=== PATIENT | male | born 1950 | race Caucasian/White ===

== ENCOUNTER → 2016-09-08 | Outpatient (CLI) | payer BC ==
[~2016-09-08] MED LIST: ALLOPURINOL100 M1 ORAL; FLOMAX0.4 MG ORAL; NORCO 5-325 TA1 EACH ORAL; NORVASC5 MG ORAL; PANCREASE1 EA ORAL; POTASSIUM CHLO20 ME1 ORAL; PROTONIX40 MG ORAL; RANITIDINE HCL150 MG ORAL; TRAMADOL HCL50 MG ORAL
[2016-09-08 09:41] LABS: BILIRUBIN,DIRECT 0.1 mg/dL (0.1-0.3); CALCIUM 9.3 mg/dL (8.6-10.2); CREATININE 1.4 mg/dL (0.7-1.2); POTASSIUM 4.7 mEQ/L (3.4-4.9); TOTAL PROTEIN 7.3 g/dL (6.6-8.7)
== END | disposition home or self-care (01) ==
LOC: LAB 08:50
DX: R94.5 Abnormal results of liver function studies (principal)
CPT/HCPCS: 36415; 80048; 80076

== ENCOUNTER → 2016-11-25 | Outpatient (CLI) | payer MEDICARE ==
[2016-11-25 10:33] LABS: BASOPHILS % (AUTO) 0.7 % (0.0-2.0); EOSINOPHILS % (AUTO) 0.9 % (0.0-3.0); LYMPHOCYTES % (AUTO) 9.1 % (20.0-45.0); MEAN CORPUSCULAR HGB CONC 32.8 G/DL (32.0-36.0); MEAN CORPUSCULAR VOLUME 94 FL (80-99); NEUTROPHILS % (AUTO) 79.4 % (45.0-75.0); PLATELET COUNT 222 K/UL (150-450); RED BLOOD COUNT 5.13 M/UL (4.70-6.10); RED CELL DISTRIBUTION WIDTH 12.2 % (11.6-14.8); WHITE BLOOD COUNT 10.6 K/UL (4.8-10.8)
[2016-11-25 10:51] LABS: CALCIUM 9.7 mg/dL (8.6-10.2); CREATININE 1.4 mg/dL (0.7-1.2); GLOMERULAR FILTRATION RATE 50.9 mL/min (>60); MAGNESIUM 2.2 mg/dL (1.7-2.5); PHOSPHORUS 3.2 mg/dL (2.5-4.8); POTASSIUM 4.5 mEQ/L (3.4-4.9); TOTAL PROTEIN 7.7 g/dL (6.6-8.7)
--- NOTE | 2016-11-25 12:37 | Diagnostic Imaging Report ---
Clinical Indication: Lower abdominal pain. History of right knee sarcoma Technique: Patient given oral contrast. IV administration nonionic contrast. Venous phase spiral acquisition obtained through the abdomen and pelvis. Multiplanar reconstructions were generated. Total dose length product 996 mGycm. CTDIvol(s) 18 mGy Comparison: 12/18/2015 Findings: Previously demonstrated pancreatic swelling and peripancreatic inflammatory changes have resolved. However, there are now multiple cysts surrounding the pancreas. The largest comes off of the pancreatic tail, measures 7.5 x 7 cm, and markedly indents the splenic hilum. It is surrounded by some tissue anteriorly that probably represents the splenic vein and branches that are splayed by it. A second is located within or adjacent to the pancreatic body, medial anterior splenic vein, measures 4.3 x 2 cm. A third occupies the density a process, measures 17 mm in diameter. A fourth is only barely contiguous with the pancreatic substance, appears to be within or adjacent to the wall of the proximal jejunum, measures 3 cm long axis dimension. There is some slight thickening of the adjacent jejunal wall. The contrast previously demonstrated within the pancreatic substance is no longer evident. There is suggestion of a tiny duodenal diverticulum. There is been interim considerable loss of pancreatic parenchyma. The gallbladder is nondistended. No gross gallstones are evident. There is minimal central intrahepatic biliary ductal dilatation, but this is somewhat improved from the previous exam. No extrahepatic biliary ductal dilatation is evident, although the extra hepatic bile ducts are not well visualized. No focal liver lesions are demonstrated. The spleen is borderline enlarged, measuring 13 cm long axis dimension There is a mass in the medial upper pole of the right kidney. This measures with 5.5 cm long axis dimension. This is iso-enhancing to the adjacent renal parenchyma. In retrospect, possibly present previously, currently larger. No hydronephrosis. Exophytic subcentimeter low-attenuation lesions in the left kidney most likely represent benign cortical cysts. No urinary calculi, hydronephrosis, or hydroureter. The bladder demonstrates mild wall thickening. The prostate is enlarged, indents the bladder floor. The adrenals are unremarkable. The appendix is not definitely identified, but there are no findings to suggest acute appendicitis.. There are a few colonic diverticula. No evidence of diverticulitis.. There is mild distention of the rectum with feces. No small bowel distention. No small bowel wall thickening. Distal esophagus, stomach, duodenum are unremarkable. No retroperitoneal or mesenteric mass or adenopathy. No pelvic mass or adenopathy. The included lung bases are clear. The bones demonstrate degenerative spondylosis changes. Lung bases are clear except for scarring or atelectasis in the inferior lingula Impression: Multiple pancreatic and peripancreatic cystic lesions, as described. Given evidence on prior CT of fulminant pancreatitis, these most likely represent pancreatic pseudocysts. Infection of any these cannot be excluded although there are no significant findings to suggest such. Note that one of the pseudocysts appears to be within the proximal jejunal serosa. There is wall thickening of the affected segment of jejunum and slightly distally. The jejunal thickening may be reactive related to the presence of the stenosis in the wall, or may be a separate process such as focal enteritis 5.5 cm right upper pole renal mass. This is worrisome for renal malignancy Mild central intrahepatic biliary ductal dilatation, less striking than on the prior study. Significance/etiology uncertain No definite extrahepatic biliary ductal dilatation. Correlation with liver function tests, consideration for ERCP if clinically indicated is recommended Exophytic subcentimeter low-attenuation l -- esions in the left kidney, too small to characterize, most likely benign simple cysts. No further followup necessary Borderline splenomegaly Prostatomegaly Apparent slight bladder wall thickening, most likely an artifact of under distention, process such as cystitis not completely excludable Possible mild rectal fecal impaction Findings discussed by phone with Dr. Solorzano at the time of interpretation The CT scanner at [facility] is accredited by the [employer] and the scans are performed using protocols designed to limit radiation exposure to as low as reasonably achievable to attain images of sufficient resolution adequate for diagnostic evaluation.
== END | disposition home or self-care (01) ==
LOC: RAD 09:47
DX: R10.30 Lower abdominal pain, unspecified (principal); N28.89 Other specified disorders of kidney and ureter; N40.0 Benign prostatic hyperplasia without lower urinary tract symptoms
CPT/HCPCS: 36415; 74177; 80053; 82150; 83690; 83735; 84100; 85025; Q9967

== ENCOUNTER → 2016-12-20 | Outpatient (CLI) | payer MEDICARE, OTHER ==
[2016-12-20 12:00] LABS: EOSINOPHILS % (AUTO) 3.3 % (0.0-3.0); LYMPHOCYTES % (AUTO) 9.3 % (20.0-45.0); MEAN CORPUSCULAR HEMOGLOBIN 30.8 PG (27.0-31.0); MEAN CORPUSCULAR HGB CONC 33.1 G/DL (32.0-36.0); MEAN CORPUSCULAR VOLUME 93 FL (80-99); MONOCYTES % (AUTO) 10.5 % (1.0-10.0); NEUTROPHILS % (AUTO) 75.8 % (45.0-75.0); PLATELET COUNT 211 K/UL (150-450); RED BLOOD COUNT 4.62 M/UL (4.70-6.10); WHITE BLOOD COUNT 10.9 K/UL (4.8-10.8)
[2016-12-20 12:17] LABS: CREATININE 2.3 mg/dL (0.7-1.2); GLOMERULAR FILTRATION RATE 28.7 mL/min (>60); PHOSPHORUS 3.2 mg/dL (2.5-4.8); POTASSIUM 3.9 mEQ/L (3.4-4.9); TOTAL PROTEIN 7.1 g/dL (6.6-8.7)
== END | disposition home or self-care (01) ==
LOC: LAB 11:13
DX: I10 Essential (primary) hypertension (principal); N28.89 Other specified disorders of kidney and ureter; S37.009A Unspecified injury of unspecified kidney, initial encounter; X58.XXXA Exposure to other specified factors, initial encounter; Y93.9 Activity, unspecified; Y92.9 Unspecified place or not applicable
CPT/HCPCS: 36415; 80053; 84100; 85025

== ENCOUNTER 2017-05-02 10:19 | Outpatient (CLI) | payer MEDICARE, OTHER ==
[2017-05-02 11:03] LABS: APPEARANCE,URINE CLEAR; KETONES,URINE 2+ (NEGATIVE); LEUKOCYTE ESTERASE ,URINE NEGATIVE (NEGATIVE); NITRITE,URINE NEGATIVE (NEGATIVE); PH,URINE 5 (4.5-8.0); PROTEIN,URINE 2+ (NEGATIVE); UROBILINOGEN,URINE NORMAL MG/DL (0.0-1.0)
[2017-05-02 11:05] LABS: BASOPHILS % (AUTO) 0.8 % (0.0-2.0); EOSINOPHILS % (AUTO) 1.5 % (0.0-3.0); LYMPHOCYTES % (AUTO) 7.4 % (20.0-45.0); MEAN CORPUSCULAR HEMOGLOBIN 31.3 PG (27.0-31.0); MEAN CORPUSCULAR HGB CONC 32.9 G/DL (32.0-36.0); MEAN CORPUSCULAR VOLUME 95 FL (80-99); MEAN PLATELET VOLUME 7.3 FL (6.5-10.1); MONOCYTES % (AUTO) 10.2 % (1.0-10.0); NEUTROPHILS % (AUTO) 80.2 % (45.0-75.0); PLATELET COUNT 167 K/UL (150-450); RED CELL DISTRIBUTION WIDTH 12.7 % (11.6-14.8); WHITE BLOOD COUNT 7.9 K/UL (4.8-10.8)
[2017-05-02 11:13] LABS: BACTERIA,URINE OCCASIONAL /HPF; SQUAMOUS EPITHELIAL CELL,UR OCCASIONAL /LPF (NONE/OCC); WBC,URINE 0-2 /HPF (0 - 0)
[2017-05-02 11:19] LABS: HEMOGLOBIN A1C 5.3 % (< 6.0)
[2017-05-02 11:24] LABS: PROTHROMBIN TIME 10.6 SEC (9.30-11.50)
[2017-05-02 11:27] LABS: ALBUMIN/GLOBULIN RATIO 1.1 (1.0-2.7); CALCIUM 9.1 mg/dL (8.6-10.2); CREATININE 2.4 mg/dL (0.7-1.2); GLOMERULAR FILTRATION RATE 27.3 mL/min (>60); POTASSIUM 4.2 mEQ/L (3.4-4.9); TOTAL PROTEIN 7.5 g/dL (6.6-8.7)
[2017-05-02 11:37] LABS: THYROID STIMULATING HORMONE 1.2 uIU/mL (0.300-4.500)
[2017-05-03 14:30] LABS: CREATININE RANDOM URINE 136.8 mg/dL (Not Estab.); HOMOCYSTINE QUANT 17.4 umol/L (0.0-15.0); MICROALBUMIN/CREATININE RATIO 49.2 mg/g creat (0.0-30.0)
== END 2017-05-02 12:19 | disposition home or self-care (01) ==
LOC: LAB 10:19
DX: I12.9 Hypertensive chronic kidney disease with stage 1 through stage 4 chronic kidney disease, or unspecified chronic kidney disease (principal); N18.9 Chronic kidney disease, unspecified; E78.00 Pure hypercholesterolemia, unspecified
CPT/HCPCS: 36415; 80053; 81001; 82043; 82306; 82607; 82746; 83036; 83090; 84443; 85025; 85610; 85730

== ENCOUNTER 2017-06-28 11:23 | Outpatient (CLI) | payer MEDICARE, OTHER ==
[2017-06-28 11:51] LABS: BASOPHILS % (AUTO) 0.7 % (0.0-2.0); HEMATOCRIT 46.9 % (42.0-52.0); HEMOGLOBIN 15.7 G/DL (14.2-18.0); LYMPHOCYTES % (AUTO) 10.5 % (20.0-45.0); MEAN CORPUSCULAR VOLUME 94 FL (80-99); MONOCYTES % (AUTO) 10.2 % (1.0-10.0); NEUTROPHILS % (AUTO) 77.5 % (45.0-75.0); PLATELET COUNT 193 K/UL (150-450); RED BLOOD COUNT 5.02 M/UL (4.70-6.10); RED CELL DISTRIBUTION WIDTH 12.8 % (11.6-14.8); WHITE BLOOD COUNT 10.1 K/UL (4.8-10.8)
[2017-06-28 12:32] LABS: ALANINE AMINOTRANSFERASE 35 U/L (12-78); ALBUMIN 3.3 G/DL (3.4-5.0); ALBUMIN/GLOBULIN RATIO 0.8 (1.0-2.7); ALKALINE PHOSPHATASE 124 U/L (46-116); ANION GAP 11 mmol/L (5-15); ASPARTATE AMINO TRANSFERASE 19 U/L (15-37); BILIRUBIN,TOTAL 0.5 MG/DL (0.2-1.0); BLOOD UREA NITROGEN 29 mg/dL (7-18); CALCIUM 9.3 MG/DL (8.5-10.1); CARBON DIOXIDE 22 MMOL/L (21-32); CHLORIDE 106 MMOL/L (98-107); CREATININE 2.2 MG/DL (0.55-1.30); SODIUM 139 MMOL/L (136-145)
[2017-06-28 12:49] LABS: PHOSPHORUS 2.9 MG/DL (2.5-4.9)
== END 2017-06-28 13:23 | disposition home or self-care (01) ==
LOC: LAB 11:23
DX: I12.9 Hypertensive chronic kidney disease with stage 1 through stage 4 chronic kidney disease, or unspecified chronic kidney disease (principal); N40.0 Benign prostatic hyperplasia without lower urinary tract symptoms
CPT/HCPCS: 36415; 80053; 83735; 84100; 84153; 85025

== ENCOUNTER 2017-10-26 12:59 | Outpatient (CLI) | payer MEDICARE, OTHER ==
[2017-10-26 13:53] LABS: EOSINOPHILS % (AUTO) 0.7 % (0.0-3.0); HEMATOCRIT 47.5 % (42.0-52.0); HEMOGLOBIN 15.8 G/DL (14.2-18.0); LYMPHOCYTES % (AUTO) 13.4 % (20.0-45.0); MEAN CORPUSCULAR VOLUME 95 FL (80-99); MONOCYTES % (AUTO) 7.1 % (1.0-10.0); NEUTROPHILS % (AUTO) 77.8 % (45.0-75.0); PLATELET COUNT 192 K/UL (150-450); RED BLOOD COUNT 5.02 M/UL (4.70-6.10); RED CELL DISTRIBUTION WIDTH 13.2 % (11.6-14.8); WHITE BLOOD COUNT 8.6 K/UL (4.8-10.8)
[2017-10-26 14:10] LABS: APPEARANCE,URINE CLEAR; BILIRUBIN, URINE NEGATIVE (NEGATIVE); GLUCOSE, URINE (UA) NEGATIVE (NEGATIVE); KETONES,URINE NEGATIVE (NEGATIVE); LEUKOCYTE ESTERASE ,URINE NEGATIVE (NEGATIVE); NITRITE,URINE NEGATIVE (NEGATIVE); PH,URINE 5 (4.5-8.0); PROTEIN,URINE 2+ (NEGATIVE); UROBILINOGEN,URINE NORMAL MG/DL (0.0-1.0)
[2017-10-26 14:13] LABS: COLOR,URINE YELLOW
[2017-10-26 14:17] LABS: ALANINE AMINOTRANSFERASE 35 U/L (12-78); ALBUMIN 3.3 G/DL (3.4-5.0); ALBUMIN/GLOBULIN RATIO 0.7 (1.0-2.7); ALKALINE PHOSPHATASE 142 U/L (46-116); ANION GAP 11 mmol/L (5-15); ASPARTATE AMINO TRANSFERASE 23 U/L (15-37); BILIRUBIN,TOTAL 0.4 MG/DL (0.2-1.0); BLOOD UREA NITROGEN 28 mg/dL (7-18); CARBON DIOXIDE 23 MMOL/L (21-32); CHLORIDE 104 MMOL/L (98-107); CHOLESTEROL 115 MG/DL (< 200); CREATININE 2.3 MG/DL (0.55-1.30); HDL CHOLESTEROL 38 MG/DL (40-60); POTASSIUM 4.7 MMOL/L (3.5-5.1); SODIUM 138 MMOL/L (136-145); TRIGLYCERIDES 45 MG/DL (30-150)
== END 2017-10-26 14:59 | disposition home or self-care (01) ==
LOC: LAB 12:59
DX: I12.9 Hypertensive chronic kidney disease with stage 1 through stage 4 chronic kidney disease, or unspecified chronic kidney disease (principal); N18.9 Chronic kidney disease, unspecified; N40.0 Benign prostatic hyperplasia without lower urinary tract symptoms; E78.00 Pure hypercholesterolemia, unspecified; K86.3 Pseudocyst of pancreas
CPT/HCPCS: 36415; 80053; 80061; 81001; 82105; 82150; 83690; 84153; 84154; 84443; 84550; 85025

== ENCOUNTER 2017-11-22 12:17 | Outpatient (CLI) | payer MEDICARE, OTHER | END 2017-11-22 13:17 | disposition home or self-care (01) | LOC: LAB 12:17 | DX: E29.1 Testicular hypofunction (principal) | CPT/HCPCS: 84403 ==

== ENCOUNTER 2017-11-29 10:33 | Outpatient (CLI) | payer MEDICARE, OTHER ==
--- NOTE | 2017-11-29 13:42 | Diagnostic Imaging Report ---
Indication: Abdominal pain Technique: MRI of the abdomen was performed in a 1.5 Meghna magnet. Pulse sequences obtained include coronal and axial T2 single shot fast spin echo breathhold and respiratory gated coronal T2 3-D M.R.C.P.; this data set was displayed in different projections or MIPs. In addition, multiple coronal oblique thin T2 weighted, fat saturated SE sequences obtained through the CBD. Comparison: None Findings: Gallstones are present within a contracted gallbladder versus cystic duct remnant (if the patient has had prior cholecystectomy). Biliary ducts do not appear significantly dilated nor other filling defects to suggest choledocholithiasis. CBD is about 8 to 9 mm in diameter. The pancreas is atrophic. The main pancreatic duct is prominent measuring about 6 mm. There is a cystic focus in the uncinate process measuring 2.3 cm. This is not well evaluated on the current study. The right kidney is absent. There is a large cyst in the left kidney measuring 8 cm. No free fluid identified. IMPRESSION: No evidence of choledocholithiasis. Gallstones Septated 2.3 cm cyst in the uncinate process, which may represent an IPMN. Consider evaluation with MRI with gadolinium (pancreas protocol). 8 cm left renal cyst Status post right nephrectomy.
== END 2017-11-29 12:33 | disposition home or self-care (01) ==
LOC: MRI 10:33
DX: K86.2 Cyst of pancreas (principal); K80.80 Other cholelithiasis without obstruction; N20.0 Calculus of kidney; Z90.5 Acquired absence of kidney; Z90.49 Acquired absence of other specified parts of digestive tract
CPT/HCPCS: 74181

== ENCOUNTER 2017-12-05 08:56 | Outpatient (CLI) | payer MEDICARE, OTHER ==
--- NOTE | 2017-12-05 09:43 | GI Progress Note ---
Assessment/Plan Problems: (1) Pseudocyst of pancreas ICD Codes: K86.3 - Pseudocyst of pancreas SNOMED: 997376564 (2) Pancreatitis ICD Codes: K85.9 - Acute pancreatitis, unspecified SNOMED: 94399979 (3) Abdominal pain ICD Codes: R10.9 - Unspecified abdominal pain SNOMED: 23406961 Status: stable Status Narrative Seen with Dr. Merchant. Assessment/Plan Labs reviewed with patient >> Lipase 2000+ MRI reviewed >> IMPRESSION: No evidence of choledocholithiasis. Gallstones Septated 2.3 cm cyst in the uncinate process, which may represent an IPMN. Consider evaluation with MRI with gadolinium (pancreas protocol). 8 cm left renal cyst Status post right nephrectomy. PLAN: EGD/EUS scheduled 12/13/17. - NPO @ [place] day prior procedure. labs to be drawn day of procedure >> CA19-9, CEA, Amylase/lipase plan for colonoscopy during follow up Subjective Gastrointestinal/Abdominal: Reports: no symptoms Objective General Appearance: WD/WN, no apparent distress, alert Cardiovascular: normal rate Respiratory/Chest: normal breath sounds, no respiratory distress Abdominal Exam: normal bowel sounds, non tender, soft Extremities: normal range of motion, non-tender Regi Lewis N.P. Dec 05, 2017 09:43
[2017-12-05] MEDS ORDERED: PROSCAR5 MG ORAL (09:45)
[2017-12-05] MEDS ORDERED: DIOVAN80 MG ORAL (09:45)
== END 2017-12-05 09:31 | disposition home or self-care (01) ==
LOC: PAN 08:56
DX: K86.3 Pseudocyst of pancreas (principal); K85.10 Biliary acute pancreatitis without necrosis or infection; R10.9 Unspecified abdominal pain; N20.0 Calculus of kidney; Z90.5 Acquired absence of kidney
CPT/HCPCS: 99212

== ENCOUNTER 2017-12-13 09:19 | Day surgery (SDC) | payer MEDICARE, OTHER ==
[2017-12-13] VITALS (11 sets, daily range): BP systolic 95–143; BP diastolic 59–85
[~2017-12-13] VITALS: Ht 182.9 cm; Wt 97.5 kg
--- NOTE | 2017-12-13 07:06 | Anethesia Preoperative Eval ---
Anesthesia Pre-op PMH/ROS General Date of Evaluation: Dec 13, 2017 Time of Evaluation: 07:04 Anesthesiologist: kassandra ASA Score: ASA 3 Mallampati Score Class I : Soft palate, uvula, fauces, pillars visible Class II: Soft palate, uvula, fauces visible Class III: Soft palate, base of uvula visible Class IV: Only hard plate visible Mallampati Classification: Class II Surgeon: caleb Diagnosis: anemia Surgical Procedure: egd/eus Anesthesia History: none Social History: smoking - nonsmoker Family History: no anesthesia problems Allergies: Coded Allergies: LATEX (Verified Allergy, Mild, 12/13/17) skin rash Uncoded Allergies: CLEAR TAPE (Allergy, Mild, 12/13/17) SKIN RASH Medications: see eMAR Past Medical History Cardiovascular: Reports: HTN Gastrointestinal/Genitourinary: Reports: CRI, other - pancreatitis Hematology/Immune: Reports: anemia Anesthesia Pre-op Phys. Exam Physician Exam Constitutional: NAD Neurologic: CN 2-12 intact Cardiovascular: RRR Respiratory: CTA Gastrointestinal: S/NT/ND Airway Exam Mallampati Score: Class II MO: full Neck: supple TMD: 2fb ROM: limited Anesthesia Pre-op A/P Risk Assessment & Plan Assessment: asa3 Plan: mac Status Change Before Surgery: No Pre-Antibiotics Drug: ROBIN Desai Dec 13, 2017 07:06
[~2017-12-13 09:19] MED LIST changes: +Atropine Inj 1mg/10ml Syr IV PRN; +DIOVAN80 MG ORAL; +DiphenhydrAMINE 50mg/ml Inj IVP PRN; +Midazolam 2mg/2ml Inj IVP PRN; +PROSCAR5 MG ORAL; +fentaNYL 100 mcg/2 mL IV PRN
[2017-12-13] MEDS ORDERED: Lidocaine 1% MPF 10mg/ml 5ml ONE (11:00)
[2017-12-13] MEDS ORDERED: Propofol 200mg/20ml IV ONE (11:00)
--- NOTE | 2017-12-13 11:01 | Pre-Procedure Note/Attestation ---
Pre-Procedure Note/Attestation Complete Prior to Procedure Planned Procedure: not applicable Procedure Narrative: egd/eus Indications for Procedure Pre-Operative Diagnosis: panc cyst, esophagitis Attestation I attest that I discussed the nature of the procedure; its benefits; risks and complications; and alternatives (and the risks and benefits of such alternatives ), prior to the procedure, with the patient (or the patient's legal sales and merchandising representative). I attest that, if there was a reasonable possibility of needing a blood transfusion, the patient (or the patient's legal sales and merchandising representative) was given the [facility] standardized written summary, pursuant to the Cedric [place] Blood Safety Act ([place] Health and Safety Code # 1645, as amended). I attest that I re-evaluated the patient just prior to the surgery and that there has been no change in the patient's H&P, except as documented below: URSULA JOHNSON Dec 13, 2017 11:01
--- NOTE | 2017-12-13 11:02 | Short Stay Surgery H&P ---
History of Present Illness History of Present Illness Chief Complaint panc cyst HPI Saúl Gutierrez is a 67 year old male who was admitted on for Pancreatic Cyst Patient History Allergies: Coded Allergies: LATEX (Verified Allergy, Mild, 12/13/17) skin rash Uncoded Allergies: CLEAR TAPE (Allergy, Mild, 12/13/17) SKIN RASH PAST MEDICAL HISTORY: (1) Abdominal pain (2) Pancreatitis (3) Pseudocyst of pancreas (4) Anemia in CKD (chronic kidney disease) (5) Hypertension (6) Esophagitis (7) Gastritis Medication History Scheduled Finasteride* (Proscar*), 5 MG ORAL DAILY, (Reported) Tamsulosin HCl (Flomax), 0.4 MG ORAL BID Valsartan (Diovan), 80 MG ORAL NEEDED, (Reported) Review of Systems Cardiovascular: Reports: no symptoms Respiratory: Reports: no symptoms Skeletal: Reports: no symptoms Gastrointestinal: Reports: no symptoms Genitourinary: Reports: no symptoms Neurologic: Reports: no symptoms Hematologic: Reports: anemia Physical Exam Vital Signs Last Vital Signs Date Time Temp Pulse Resp B/P (MAP) Pulse Ox O2 Delivery O2 Flow Rate FiO2 12/13/17 10:16 97.7 71 20 143/85 97 Room Air 97.7 Skin: normal HENT: normal Heart: normal Lungs: normal Abdomen: normal Extremities: normal Plan Plan of Care esophagogastroduodenoscopy and EUS Attestation Are the patient's medical conditions optimized for surgery? Attestation Response: yes URSULA JOHNSON Dec 13, 2017 11:02
[2017-12-13] MEDS ORDERED: Heplock Flush 100 units/ml 3 ml syr ONE (11:56)
[2017-12-13 13:37] LABS: BASOPHILS % (AUTO) 0.6 % (0.0-2.0); EOSINOPHILS % (AUTO) 0.6 % (0.0-3.0); HEMATOCRIT 45.3 % (42.0-52.0); HEMOGLOBIN 15.4 G/DL (14.2-18.0); LYMPHOCYTES % (AUTO) 10.4 % (20.0-45.0); MEAN CORPUSCULAR VOLUME 95 FL (80-99); MONOCYTES % (AUTO) 7.5 % (1.0-10.0); NEUTROPHILS % (AUTO) 80.9 % (45.0-75.0); PLATELET COUNT 168 K/UL (150-450); RED BLOOD COUNT 4.78 M/UL (4.70-6.10); RED CELL DISTRIBUTION WIDTH 12.7 % (11.6-14.8); WHITE BLOOD COUNT 7.5 K/UL (4.8-10.8)
[2017-12-13 13:47] LABS: ALANINE AMINOTRANSFERASE 40 U/L (12-78); ALBUMIN 3.1 G/DL (3.4-5.0); ALBUMIN/GLOBULIN RATIO 0.8 (1.0-2.7); ALKALINE PHOSPHATASE 116 U/L (46-116); AMYLASE 257 U/L (25-115); ANION GAP 8 mmol/L (5-15); ASPARTATE AMINO TRANSFERASE 21 U/L (15-37); BILIRUBIN,TOTAL 0.4 MG/DL (0.2-1.0); BLOOD UREA NITROGEN 47 mg/dL (7-18); CALCIUM 8.6 MG/DL (8.5-10.1); CARBON DIOXIDE 24 MMOL/L (21-32); CHLORIDE 108 MMOL/L (98-107); CREATININE 2.2 MG/DL (0.55-1.30); POTASSIUM 5.1 MMOL/L (3.5-5.1); SODIUM 140 MMOL/L (136-145)
--- NOTE | 2017-12-13 14:41 | Cardiology Report ---
APPROVED REPORT EKG Measurement Heart [id number] TX [id number] Normal sinus rhythm Normal ECG
--- NOTE | 2017-12-13 16:45 | Procedure Note ---
DATE OF PROCEDURE: 12/13/2017 SURGEON: Nam Merchant M.D. PROCEDURE: Upper endoscopy with biopsy and endoscopic ultrasound. ANESTHESIA: Per Dr. De León. INSTRUMENT: Olympus adult flexible upper scope and EUS scope. INDICATION: Pancreatic cyst, history of pancreatitis, history of esophagitis. The procedure, risks, benefits, and possible consequences, including hemorrhage, aspiration, perforation and infection, and alternative treatments, were explained to the patient/legal guardian by Dr. Nam Merchant and the patient/legal guardian understood and accepted these risks. DESCRIPTION OF PROCEDURE: After informed consent was obtained and the patient was adequately sedated, the Olympus upper scope was advanced from mouth to the second portion of the duodenum and retroflexion was performed in stomach. The patient has diffuse gastritis moderate. There was also friability of the tissue at the GE junction. Even passing the scope has caused oozing blood from this area. Passage of the scope through the pyloric channel was a lit bit challenging. It seems that there was a little bit of narrowing, and examination of that area and making passage of the even a regular scope challenging. At this time, we biopsied antrum and removed the scope. Then, the EUS scope was introduced. Scanning at GE junction, first to evaluate the pancreatic body and tail while scope was in the stomach. There was evidence of severe pancreatic atrophy. We could see the pancreatic duct dilated in the tail of the pancreas measured roughly about 3.4 mm, but we could not follow the pancreatic duct tail into the body or into the genu, so I am not sure if there is any disconnection between pancreatic duct tail into the body. There was evidence of a cystic lesion in the genu of the pancreas measured roughly about 1.69 cm, appears to be a pseudo cyst or simple cyst. There is no wall thickening. There is no any filling defect in the cyst. Then, the scope was advanced into the duodenal bulb and second portion of the duodenum. As I mentioned, it was challenging passage of the scope given inflammation. Even passing the upper endoscope was difficult so you can imagine the EUS scope was even more difficult. Scanning of the head of the pancreas and uncinate process showed evidence of 2 cysts in the uncinate process of the pancreas. One measured about 2.06 cm, which looked like a more simple cyst. The one right next to it measured 2.13 cm and that has some filling defect in it and it was more complex. At this time, we removed the scope and re-introduced a linear scope to try to do FNA, but we could not get a good angle to do FNA this cyst. SUMMARY OF FINDINGS: 1. Atrophic pancreas. 2. Focal dilation of the pancreatic duct tail. Questionable discontinuation of the pancreatic duct from the tail into the body. 3. A simple cyst at 1.69 cm in the genu of the pancreas. 4. Two cyst in the uncinate process. One measured 2.06 cm, looks like a simple cyst. The one right beneath it measured 2.13 and it has some filling defect in it and more complex. RECOMMENDATIONS: I think these cysts in the uncinate process, especially the larger one with a filling defect is suspicious for side branch IPMN. I recommend the patient to have full MRI with contrast and MRCP to get a better look at this duct dilatation and cyst to see if there is any communication between this cyst and main pancreatic duct. After the MRI and MRCP done, we are going to have to bring the patient back and based on those results, we will decide either to do attempt to do another FNA if we can, and if not, then we are going to refer the patient to surgical evaluation. Meanwhile, we are going to start the patient on PPI daily. Given the extent of inflammation in the stomach and esophagus. The patient was instructed to follow up in the office for further management. I want to thank Dr. Solorzano for this kind referral. Nam Merchant M.D. DR: KIRSTEN JOB#: [id number] CC: Mina Solorzano M.D.; Fax#: [phone]
--- NOTE | 2017-12-13 23:41 | Immediate Post-Op Evaluation ---
Immediate Post-Op Evalulation Immediate Post-Op Evalulation Procedure: colonoscopy w/bx Date of Evaluation: Dec 13, 2017 Time of Evaluation: 12:37 IV Fluids: 500ml 0.9ns Blood Products: none Estimated Blood Loss: negligible Blood Pressure Systolic: 95 Blood Pressure Diastolic: 59 Pulse Rate: 69 Respiratory Rate: 18 O2 Sat by Pulse Oximetry: 99 Temperature (Fahrenheit): 97.8 Pain Score (1-10): 0 Nausea: No Vomiting: No Complications none Patient Status: awake, reacts, patent Hydration Status: adequate Drug: ROBIN Desai Dec 13, 2017 23:41
--- NOTE | 2017-12-13 23:43 | 48 Hour Post Anesthesia Eval ---
Post Anesthesia Evaluation Procedure: colonoscopy w/bx Date of Evaluation: Dec 13, 2017 Time of Evaluation: 12:39 Blood Pressure Systolic: 102 0: 60 Pulse Rate: 70 Respiratory Rate: 18 Temperature (Fahrenheit): 97.8 O2 Sat by Pulse Oximetry: 99 Airway: patent Nausea: No Vomiting: No Pain Intensity: 0 Hydration Status: adequate Cardiopulmonary Status: stable Mental Status/LOC: patient returned to baseline Post-Anesthesia Complications: none Follow-up care needed: N/A ROBIN SCHULER Dec 13, 2017 23:43
== END 2017-12-13 14:45 | disposition home or self-care (01) ==
LOC: GAS 09:19
DX: K86.2 Cyst of pancreas (principal); K29.50 Unspecified chronic gastritis without bleeding; Z91.040 Latex allergy status; I12.9 Hypertensive chronic kidney disease with stage 1 through stage 4 chronic kidney disease, or unspecified chronic kidney disease; N18.9 Chronic kidney disease, unspecified; K86.89 Other specified diseases of pancreas
CPT/HCPCS: 36415; 43239; 43259; 80053; 82150; 83690; 85025; 93005; J2704; 94003; 94150

== ENCOUNTER 2018-01-04 14:10 | Outpatient (CLI) | payer MEDICARE, OTHER ==
[2018-01-04 14:00] VITALS: BP 136/78
[~2018-01-04 14:10] MED LIST changes: -Atropine Inj 1mg/10ml Syr IV PRN; -DiphenhydrAMINE 50mg/ml Inj IVP PRN; -Midazolam 2mg/2ml Inj IVP PRN; -fentaNYL 100 mcg/2 mL IV PRN
--- NOTE | 2018-01-04 15:30 | GI Progress Note ---
Assessment/Plan Problems: (1) Anemia in CKD (chronic kidney disease) ICD Codes: N18.9 - Chronic kidney disease, unspecified; D63.1 - Anemia in chronic kidney disease SNOMED: 024658156 (2) Pancreatitis ICD Codes: K85.9 - Acute pancreatitis, unspecified SNOMED: 67523900 (3) Pseudocyst of pancreas ICD Codes: K86.3 - Pseudocyst of pancreas SNOMED: 151585129 (4) Abdominal pain ICD Codes: R10.9 - Unspecified abdominal pain SNOMED: 64291709 (5) Esophagitis ICD Codes: K20.9 - Esophagitis, unspecified SNOMED: 91839188 (6) Anemia ICD Codes: D64.9 - Anemia, unspecified SNOMED: 194999204 Status: stable Status Narrative Seen with Dr. Merchant. Assessment/Plan MRCP reviewed with patient. >> consider repeat x 6 months - 6cm mass near pancreatic tail most likely a pseudocyst. - 2.6cm mass in the region of the uncinate process, probable pseudocyst or serious cystadenoma. Plan for colonoscopy 01/12/18. - CLD & (Nulytely/Suprep/Movi-Prep) prep instructions given and acknowledged by patient. - NPO @ [place] day prior procedure explained. patient refused cholestyramine trial of ursodiol BID RTC x 3 months Subjective Gastrointestinal/Abdominal: Reports: no symptoms Objective T 98 BP 136/78 P 71 93 RA General Appearance: WD/WN, no apparent distress, alert Cardiovascular: normal rate Respiratory/Chest: normal breath sounds, no respiratory distress Abdominal Exam: normal bowel sounds, non tender, soft Extremities: normal range of motion, non-tender Daniel Lewis SUPERVISOR January 04, 2018 15:30
== END 2018-01-04 14:42 | disposition home or self-care (01) ==
LOC: PAN 14:10
DX: N18.9 Chronic kidney disease, unspecified (principal); D63.1 Anemia in chronic kidney disease; K85.90 Acute pancreatitis without necrosis or infection, unspecified; K86.3 Pseudocyst of pancreas; R10.9 Unspecified abdominal pain; K20.9 Esophagitis, unspecified
CPT/HCPCS: 99211

== ENCOUNTER 2018-01-29 14:30 | Outpatient (CLI) | payer MEDICARE, OTHER ==
--- NOTE | 2018-01-29 16:05 | GI Progress Note ---
Assessment/Plan Problems: (1) Anemia in CKD (chronic kidney disease) ICD Codes: N18.9 - Chronic kidney disease, unspecified; D63.1 - Anemia in chronic kidney disease SNOMED: 110702568 (2) Abdominal pain ICD Codes: R10.9 - Unspecified abdominal pain SNOMED: 33180366 (3) Pancreatitis ICD Codes: K85.9 - Acute pancreatitis, unspecified SNOMED: 51919648 (4) Gastritis ICD Codes: K29.70 - Gastritis, unspecified, without bleeding SNOMED: 1822108 (5) Esophagitis ICD Codes: K20.9 - Esophagitis, unspecified SNOMED: 53651798 (6) Anemia ICD Codes: D64.9 - Anemia, unspecified SNOMED: 712486047 (7) Pseudocyst of pancreas ICD Codes: K86.3 - Pseudocyst of pancreas SNOMED: 960439282 Status: stable Status Narrative Seen with Dr. Merchant. Assessment/Plan SUMMARY OF FINDINGS colonoscopy: 1. Two colonic polyps removed, see above for details. 2. Diverticulosis. 3. Internal hemorrhoids. SUMMARY OF FINDINGS s/p EUS: 1. Atrophic pancreas. 2. Focal dilation of the pancreatic duct tail. Questionable discontinuation of the pancreatic duct from the tail into the body. 3. A simple cyst at 1.69 cm in the genu of the pancreas. 4. Two cyst in the uncinate process. One measured 2.06 cm, looks like a simple cyst. The one right beneath it measured 2.13 and it has some filling defect in it and more complex. MRI reviewed >> - evidence of choledocholithiasis. - Gallstones - Septated 2.3 cm cyst in the uncinate process, which may represent an IPMN - 8 cm left renal cyst - Status post right nephrectomy. RECOMMENDATIONS: 1. Follow up biopsy results. 2. We recommend repeat colonoscopy in 5 years. RTC x 6 months for repeat MRI The patient was seen and examined at bedside and all new and available data was reviewed in the patients chart. I agree with the above findings, impression and plan. (Patient seen earlier today. Signature stamp does not reflect patient encounter time.). - Nam Merchant MD Subjective Gastrointestinal/Abdominal: Reports: no symptoms Objective T 98.3 BP 143/79 66 HR 96 RA General Appearance: WD/WN, no apparent distress, alert Cardiovascular: normal rate Respiratory/Chest: normal breath sounds, no respiratory distress Abdominal Exam: normal bowel sounds, non tender, soft Extremities: normal range of motion, non-tender Daniel Lewis NP Jan 29, 2018 16:05
== END 2018-01-29 15:01 | disposition home or self-care (01) ==
LOC: PAN 14:30
DX: R10.9 Unspecified abdominal pain (principal); K85.90 Acute pancreatitis without necrosis or infection, unspecified; K29.70 Gastritis, unspecified, without bleeding; K20.9 Esophagitis, unspecified; N18.9 Chronic kidney disease, unspecified; D63.1 Anemia in chronic kidney disease; K86.3 Pseudocyst of pancreas; K64.8 Other hemorrhoids; K57.90 Diverticulosis of intestine, part unspecified, without perforation or abscess without bleeding
CPT/HCPCS: 99211

== ENCOUNTER 2018-05-15 09:30 | Outpatient (CLI) | payer MEDICARE, OTHER ==
[2018-05-15] MEDS ORDERED: LOSARTAN POTASS25 MG ORAL (13:26)
[2018-05-15] MEDS ORDERED: URSODIOL300 MG ORAL (13:26)
[2018-05-15 13:28] VITALS: BP 153/85
--- NOTE | 2018-05-15 15:07 | GI Progress Note ---
Assessment/Plan Problems: (1) Abdominal pain ICD Codes: R10.9 - Unspecified abdominal pain SNOMED: 88590760 (2) Pancreatitis ICD Codes: K85.9 - Acute pancreatitis, unspecified SNOMED: 37448701 (3) Gastritis ICD Codes: K29.70 - Gastritis, unspecified, without bleeding SNOMED: 9165461 (4) Anemia ICD Codes: D64.9 - Anemia, unspecified SNOMED: 716100643 (5) Pseudocyst of pancreas ICD Codes: K86.3 - Pseudocyst of pancreas SNOMED: 847912689 (6) Esophagitis ICD Codes: K20.9 - Esophagitis, unspecified SNOMED: 08821368 Status: stable Status Narrative Discussed with Dr. Merchant. Assessment/Plan Obtain recent MRI in March from Dr. Bryan's office. RTC after results obtained. The patient was seen and examined at bedside and all new and available data was reviewed in the patients chart. I agree with the above findings, impression and plan. (Patient seen earlier today. Signature stamp does not reflect patient encounter time.). - Nam Merchant MD Subjective Gastrointestinal/Abdominal: Reports: no symptoms Objective Last 24 Hour Vital Signs Date Time Temp Pulse Resp B/P (MAP) Pulse Ox O2 Delivery O2 Flow Rate FiO2 05/15/18 13:28 98.1 68 153/85 94 98.1 General Appearance: WD/WN, no apparent distress, alert Cardiovascular: normal rate Respiratory/Chest: normal breath sounds, no respiratory distress Abdominal Exam: normal bowel sounds, non tender, soft Extremities: normal range of motion, non-tender Daniel Lewis FREELANCE PHOTOGRAPHER May 15, 2018 15:07
== END 2018-05-15 10:00 | disposition home or self-care (01) ==
LOC: PAN 09:30
DX: R10.9 Unspecified abdominal pain (principal); K85.90 Acute pancreatitis without necrosis or infection, unspecified; K29.70 Gastritis, unspecified, without bleeding; D64.9 Anemia, unspecified; K86.3 Pseudocyst of pancreas; K20.9 Esophagitis, unspecified
CPT/HCPCS: 99212

== ENCOUNTER 2018-09-17 13:04 | Outpatient (CLI) | payer MEDICARE, OTHER ==
[~2018-09-17 13:04] MED LIST changes: +LOSARTAN POTASS25 MG ORAL; +URSODIOL300 MG ORAL
[2018-09-17 13:15] VITALS: BP 135/76
--- NOTE | 2018-09-17 15:33 | GI Progress Note ---
Assessment/Plan Problems: (1) Pancreatitis ICD Codes: K85.9 - Acute pancreatitis, unspecified SNOMED: 20888326 (2) Pseudocyst of pancreas ICD Codes: K86.3 - Pseudocyst of pancreas SNOMED: 085970239 (3) Esophagitis ICD Codes: K20.9 - Esophagitis, unspecified SNOMED: 09347594 (4) Abdominal pain ICD Codes: R10.9 - Unspecified abdominal pain SNOMED: 48698010 Status: stable Status Narrative Seen with Dr. Merchant Assessment/Plan Chest and abdominal pelvic CT reviewed with patient, mainly unremarkable with no changes since last study Continue current medication Return to clinic in 3 months The patient was seen and examined at bedside and all new and available data was reviewed in the patients chart. I agree with the above findings, impression and plan. (Patient seen earlier today. Signature stamp does not reflect patient encounter time.). - Nam Merchant MD Subjective Gastrointestinal/Abdominal: Reports: no symptoms Objective Temperature 98.2 Blood pressure 135/76 Pulse 94 91% room air General Appearance: WD/WN, no apparent distress, alert Cardiovascular: normal rate Respiratory/Chest: normal breath sounds, no respiratory distress Abdominal Exam: normal bowel sounds, non tender, soft Extremities: normal range of motion, non-tender Daniel Lewis NP Sep 17, 2018 15:33
== END 2018-09-17 13:34 | disposition home or self-care (01) ==
LOC: PAN 13:04
DX: K85.90 Acute pancreatitis without necrosis or infection, unspecified (principal); K86.3 Pseudocyst of pancreas; K20.9 Esophagitis, unspecified; R10.9 Unspecified abdominal pain
CPT/HCPCS: 99212

== ENCOUNTER 2018-12-31 12:46 | Outpatient (CLI) | payer MEDICARE, OTHER ==
[2018-12-31 12:50] VITALS: BP 135/84
--- NOTE | 2018-12-31 13:08 | General Progress Note ---
Assessment/Plan Problem List: (1) Pseudocyst of pancreas ICD Codes: K86.3 - Pseudocyst of pancreas SNOMED: 406983804 (2) Esophagitis ICD Codes: K20.9 - Esophagitis, unspecified SNOMED: 96853987 (3) Gastritis ICD Codes: K29.70 - Gastritis, unspecified, without bleeding SNOMED: 3191420 (4) Anemia ICD Codes: D64.9 - Anemia, unspecified SNOMED: 161481512 (5) Anemia in CKD (chronic kidney disease) ICD Codes: N18.9 - Chronic kidney disease, unspecified; D63.1 - Anemia in chronic kidney disease SNOMED: 137194473 (6) Hypertension ICD Codes: I10 - Essential (primary) hypertension SNOMED: 20994763 Assessment/Plan: off creon pending repeat CT in january current care FU in 3 months Subjective ROS Limited/Unobtainable: Yes Allergies: Coded Allergies: LATEX (Verified Allergy, Mild, 12/13/17) skin rash Uncoded Allergies: CLEAR TAPE (Allergy, Mild, 12/13/17) SKIN RASH Objective General Appearance: alert EENT: normal ENT inspection Neck: supple Cardiovascular: normal rate Respiratory/Chest: lungs clear Abdomen: normal bowel sounds, non tender, soft Extremities: non-tender Nam Merchant MD December 31, 2018 13:08
[2019-01-01] MEDS ORDERED: COQ1050 MG PO (08:59)
[2019-01-01] MEDS ORDERED: VITAMIN E400 UNI5 PO (08:59)
[2019-01-01] MEDS ORDERED: SUPER BETA PROSTATE PO (08:59)
[2019-01-01] MEDS ORDERED: OCUVEL CAPSULE1 EACH PO (08:59)
[2019-01-01] MEDS ORDERED: VITAMIN D1000 UNI1 ORAL (08:59)
== END 2018-12-31 15:50 | disposition home or self-care (01) ==
LOC: PAN 12:46
DX: K86.3 Pseudocyst of pancreas (principal); K20.9 Esophagitis, unspecified; K29.70 Gastritis, unspecified, without bleeding; D64.9 Anemia, unspecified; I12.9 Hypertensive chronic kidney disease with stage 1 through stage 4 chronic kidney disease, or unspecified chronic kidney disease; N18.9 Chronic kidney disease, unspecified; D63.1 Anemia in chronic kidney disease; Z91.040 Latex allergy status
CPT/HCPCS: 99212

== ENCOUNTER 2019-01-09 11:29 | Outpatient (CLI) | payer MEDICARE, OTHER ==
[~2019-01-09 11:29] MED LIST changes: +COQ1050 MG PO; +OCUVEL CAPSULE1 EACH PO; +SUPER BETA PROSTATE PO; +VITAMIN D1000 UNI1 ORAL; +VITAMIN E400 UNI5 PO
[2019-01-09 11:51] LABS: BASOPHILS % (AUTO) 1.2 % (0.0-2.0); EOSINOPHILS % (AUTO) 1.2 % (0.0-3.0); HEMATOCRIT 46.2 % (42.0-52.0); HEMOGLOBIN 15.5 G/DL (14.2-18.0); LYMPHOCYTES % (AUTO) 11.1 % (20.0-45.0); MEAN CORPUSCULAR VOLUME 94 FL (80-99); MONOCYTES % (AUTO) 10.2 % (1.0-10.0); NEUTROPHILS % (AUTO) 76.2 % (45.0-75.0); PLATELET COUNT 177 K/UL (150-450); RED BLOOD COUNT 4.91 M/UL (4.70-6.10); RED CELL DISTRIBUTION WIDTH 12.9 % (11.6-14.8); WHITE BLOOD COUNT 7.9 K/UL (4.8-10.8)
[2019-01-09 12:12] LABS: ALANINE AMINOTRANSFERASE 21 U/L (12-78); ALBUMIN 3.6 G/DL (3.4-5.0); ALBUMIN/GLOBULIN RATIO 0.9 (1.0-2.7); ALKALINE PHOSPHATASE 156 U/L (46-116); ANION GAP 10 mmol/L (5-15); ASPARTATE AMINO TRANSFERASE 16 U/L (15-37); BILIRUBIN,TOTAL 0.5 MG/DL (0.2-1.0); BLOOD UREA NITROGEN 44 mg/dL (7-18); CALCIUM 9.2 MG/DL (8.5-10.1); CARBON DIOXIDE 25 MMOL/L (21-32); CHLORIDE 105 MMOL/L (98-107); CREATININE 2.8 MG/DL (0.55-1.30); PHOSPHORUS 3.4 MG/DL (2.5-4.9); POTASSIUM 4.6 MMOL/L (3.5-5.1); SODIUM 140 MMOL/L (136-145)
== END 2019-01-09 13:29 | disposition home or self-care (01) ==
LOC: LAB 11:29
DX: I12.9 Hypertensive chronic kidney disease with stage 1 through stage 4 chronic kidney disease, or unspecified chronic kidney disease (principal); N18.9 Chronic kidney disease, unspecified; E78.00 Pure hypercholesterolemia, unspecified
CPT/HCPCS: 36415; 80053; 83735; 84100; 85025

== ENCOUNTER → 2019-04-03 | Outpatient (CLI) | payer MEDICARE, OTHER ==
[2019-04-03 11:07] LABS: APPEARANCE,URINE CLEAR; BASOPHILS % (AUTO) 0.8 % (0.0-2.0); BILIRUBIN, URINE NEGATIVE (NEGATIVE); COLOR,URINE PALE YELLOW; EOSINOPHILS % (AUTO) 0.1 % (0.0-3.0); GLUCOSE, URINE (UA) 1+ (NEGATIVE); HEMATOCRIT 44.9 % (42.0-52.0); HEMOGLOBIN 14.7 G/DL (14.2-18.0); KETONES,URINE NEGATIVE (NEGATIVE); LEUKOCYTE ESTERASE ,URINE NEGATIVE (NEGATIVE); LYMPHOCYTES % (AUTO) 6.9 % (20.0-45.0); MEAN CORPUSCULAR VOLUME 96 FL (80-99); MONOCYTES % (AUTO) 16.9 % (1.0-10.0); NEUTROPHILS % (AUTO) 75.4 % (45.0-75.0); NITRITE,URINE NEGATIVE (NEGATIVE); PH,URINE 6 (4.5-8.0); PLATELET COUNT 179 K/UL (150-450); PROTEIN,URINE 3+ (NEGATIVE); RED BLOOD COUNT 4.67 M/UL (4.70-6.10); RED CELL DISTRIBUTION WIDTH 12.8 % (11.6-14.8); UROBILINOGEN,URINE NORMAL MG/DL (0.0-1.0); WHITE BLOOD COUNT 12.1 K/UL (4.8-10.8)
[2019-04-03 11:25] LABS: ALANINE AMINOTRANSFERASE 23 U/L (12-78); ALBUMIN 3.1 G/DL (3.4-5.0); ALBUMIN/GLOBULIN RATIO 0.6 (1.0-2.7); ALKALINE PHOSPHATASE 120 U/L (46-116); ANION GAP 8 mmol/L (5-15); ASPARTATE AMINO TRANSFERASE 14 U/L (15-37); BILIRUBIN,TOTAL 1.2 MG/DL (0.2-1.0); BLOOD UREA NITROGEN 30 mg/dL (7-18); CARBON DIOXIDE 25 MMOL/L (21-32); CHLORIDE 104 MMOL/L (98-107); CHOLESTEROL 130 MG/DL (< 200); CREATININE 2.3 MG/DL (0.55-1.30); HDL CHOLESTEROL 55 MG/DL (40-60); PHOSPHORUS 2.4 MG/DL (2.5-4.9); POTASSIUM 4.9 MMOL/L (3.5-5.1); SODIUM 137 MMOL/L (136-145); TRIGLYCERIDES 49 MG/DL (30-150)
[2019-04-03 11:26] LABS: BILIRUBIN,DIRECT 0.3 MG/DL (0.0-0.3)
== END | disposition home or self-care (01) ==
LOC: LAB 10:30
DX: I12.9 Hypertensive chronic kidney disease with stage 1 through stage 4 chronic kidney disease, or unspecified chronic kidney disease (principal); N18.9 Chronic kidney disease, unspecified; N40.0 Benign prostatic hyperplasia without lower urinary tract symptoms; E78.00 Pure hypercholesterolemia, unspecified
CPT/HCPCS: 36415; 80053; 80061; 81001; 82248; 83735; 84100; 85025

== ENCOUNTER 2019-04-08 12:51 | Outpatient (CLI) | payer MEDICARE, OTHER ==
--- NOTE | 2019-04-08 13:35 | General Progress Note ---
Assessment/Plan Problem List: (1) Anemia in CKD (chronic kidney disease) ICD Codes: N18.9 - Chronic kidney disease, unspecified; D63.1 - Anemia in chronic kidney disease SNOMED: 954357651 (2) Hypertension ICD Codes: I10 - Essential (primary) hypertension SNOMED: 63660810 (3) Gastritis ICD Codes: K29.70 - Gastritis, unspecified, without bleeding SNOMED: 7037697 (4) Anemia ICD Codes: D64.9 - Anemia, unspecified SNOMED: 789031708 (5) Pseudocyst of pancreas ICD Codes: K86.3 - Pseudocyst of pancreas SNOMED: 489951345 (6) Esophagitis ICD Codes: K20.9 - Esophagitis, unspecified SNOMED: 40127282 (7) Abdominal pain ICD Codes: R10.9 - Unspecified abdominal pain SNOMED: 14155136 (8) Pancreatitis ICD Codes: K85.9 - Acute pancreatitis, unspecified SNOMED: 27908251 Assessment/Plan: enlarging pancreatic cystvs psudocyst needs EUS and FNA of the cyst booked for Monday Subjective ROS Limited/Unobtainable: Yes Allergies: Coded Allergies: LATEX (Verified Allergy, Mild, 12/13/17) skin rash Uncoded Allergies: CLEAR TAPE (Allergy, Mild, 12/13/17) SKIN RASH Objective General Appearance: alert EENT: normal ENT inspection Neck: supple Cardiovascular: normal rate Respiratory/Chest: lungs clear Abdomen: normal bowel sounds, non tender, soft Extremities: non-tender Nam Merchant MD Apr 08, 2019 13:35
== END 2019-04-08 14:51 | disposition home or self-care (01) ==
LOC: PAN 12:51
DX: K29.70 Gastritis, unspecified, without bleeding (principal); I12.9 Hypertensive chronic kidney disease with stage 1 through stage 4 chronic kidney disease, or unspecified chronic kidney disease; N18.9 Chronic kidney disease, unspecified; D63.1 Anemia in chronic kidney disease; K86.3 Pseudocyst of pancreas; K20.9 Esophagitis, unspecified; R10.9 Unspecified abdominal pain; K85.90 Acute pancreatitis without necrosis or infection, unspecified; Z91.040 Latex allergy status

== ENCOUNTER 2019-04-10 07:29 | Day surgery (SDC) | payer MEDICARE, OTHER ==
[2019-04-10] VITALS (7 sets, daily range): BP systolic 96–129; BP diastolic 45–76
[~2019-04-10] VITALS: Ht 182.9 cm; Wt 99.8 kg
--- NOTE | 2019-04-10 08:17 | Anethesia Preoperative Eval ---
Anesthesia Pre-op PMH/ROS General Date of Evaluation: Apr 10, 2019 Anesthesiologist: Young ASA Score: ASA 3 Mallampati Score Class I : Soft palate, uvula, fauces, pillars visible Class II: Soft palate, uvula, fauces visible Class III: Soft palate, base of uvula visible Class IV: Only hard plate visible Mallampati Classification: Class II Surgeon: Mayur Diagnosis: pancreatic cyst Surgical Procedure: EUS Anesthesia History: none Family History: no anesthesia problems Allergies: Coded Allergies: LATEX (Verified Allergy, Intermediate, 04/10/19) skin rash Uncoded Allergies: CLEAR TAPE (Allergy, Intermediate, 04/10/19) SKIN RASH Medications: see eMAR Patient NPO?: Yes NPO Date: Apr 09, 2019 NPO Time: 22:00 Past Medical History Cardiovascular: Reports: HTN; Denies: CAD, MS, valve dz, arrhythmia, other Pulmonary: Denies: asthma, COPD, JESSY, other Gastrointestinal/Genitourinary: Reports: other - h/o renal ca-s/p right nephrectomy; Denies: GERD, CRI, ESRD Neurologic/Psychiatric: Reports: depression/anxiety; Denies: dementia, CVA, TIA, other Endocrine: Denies: DM, hypothyroidism, steroids, other HEENT: Denies: cataract (L), cataract (R), glaucoma, UPPER SKAGIT (L), UPPER SKAGIT (R), other Hematology/Immune: Reports: anemia - chronic, other - 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 Exam Physician Exam see chart Constitutional: NAD Cardiovascular: RRR Respiratory: CTA Airway Exam Mallampati Score: Class II MO: full ROM: limited Anesthesia Pre-op A/P Labs see chart Studies Pre-op Studies: EKG - sr Risk Assessment & Plan Assessment: ASA III Plan: MAC Status Change Before Surgery: No Pre-Antibiotics Drug: N/A Anahy Stewart MD Apr 10, 2019 08:17
[2019-04-10] MEDS ORDERED: LR 1000ml 1,000 ML IVLG SCH (08:18)
[2019-04-10 08:21] LABS: BASOPHILS % (AUTO) 0.8 % (0.0-2.0); HEMATOCRIT 41.1 % (42.0-52.0); HEMOGLOBIN 13.7 G/DL (14.2-18.0); LYMPHOCYTES % (AUTO) 12.8 % (20.0-45.0); MEAN CORPUSCULAR VOLUME 95 FL (80-99); MONOCYTES % (AUTO) 8.5 % (1.0-10.0); NEUTROPHILS % (AUTO) 76.9 % (45.0-75.0); PLATELET COUNT 270 K/UL (150-450); RED BLOOD COUNT 4.34 M/UL (4.70-6.10); RED CELL DISTRIBUTION WIDTH 12.4 % (11.6-14.8); WHITE BLOOD COUNT 8.1 K/UL (4.8-10.8)
[2019-04-10] MEDS ORDERED: DiphenhydrAMINE 50mg/ml Inj IVP PRN (08:30)
[2019-04-10 08:32] LABS: ANION GAP 9 mmol/L (5-15); BLOOD UREA NITROGEN 31 mg/dL (7-18); CALCIUM 9.1 MG/DL (8.5-10.1); CARBON DIOXIDE 24 MMOL/L (21-32); CHLORIDE 105 MMOL/L (98-107); CREATININE 2.4 MG/DL (0.55-1.30); POTASSIUM 4.4 MMOL/L (3.5-5.1); SODIUM 137 MMOL/L (136-145)
[2019-04-10 08:36] LABS: ALANINE AMINOTRANSFERASE 15 U/L (12-78); ALBUMIN 2.8 G/DL (3.4-5.0); ALBUMIN/GLOBULIN RATIO 0.6 (1.0-2.7); ALKALINE PHOSPHATASE 117 U/L (46-116); AMYLASE 80 U/L (25-115); ASPARTATE AMINO TRANSFERASE 14 U/L (15-37); BILIRUBIN,TOTAL 0.4 MG/DL (0.2-1.0)
[2019-04-10] MEDS ORDERED: Heplock Flush 100 units/ml 3 ml syr ONE (08:37)
--- NOTE | 2019-04-10 08:44 | Pre-Procedure Note/Attestation ---
Pre-Procedure Note/Attestation Complete Prior to Procedure Planned Procedure: not applicable Procedure Narrative: eus Indications for Procedure Pre-Operative Diagnosis: pancreatic cyst Attestation I attest that I discussed the nature of the procedure; its benefits; risks and complications; and alternatives (and the risks and benefits of such alternatives ), prior to the procedure, with the patient (or the patient's legal field marketing representative). I attest that, if there was a reasonable possibility of needing a blood transfusion, the patient (or the patient's legal field marketing representative) was given the [facility] standardized written summary, pursuant to the Cedric [place] Blood Safety Act ([place] Health and Safety Code # 1645, as amended). I attest that I re-evaluated the patient just prior to the surgery and that there has been no change in the patient's H&P, except as documented below: Nam Merchant MD Apr 10, 2019 08:44
--- NOTE | 2019-04-10 08:46 | Short Stay Surgery H&P ---
History of Present Illness History of Present Illness Chief Complaint pancreatic cyst HPI Saúl Gutierrez is a 68 year old male who was admitted on for Pancreatic Cyst Patient History Allergies: Coded Allergies: LATEX (Verified Allergy, Intermediate, 04/10/19) skin rash Uncoded Allergies: CLEAR TAPE (Allergy, Intermediate, 04/10/19) SKIN RASH PAST MEDICAL HISTORY: (1) Hypertension (2) Abdominal pain (3) Pancreatitis (4) Gastritis (5) Anemia (6) Pseudocyst of pancreas (7) Esophagitis (8) Anemia in CKD (chronic kidney disease) Medication History Scheduled Finasteride* (Proscar*), 5 MG ORAL DAILY, (Reported) Losartan Potassium* (Losartan Potassium*), 100 MG ORAL DAILY, (Reported) Ubidecarenone (Coq10), 100 MG PO DAILY, (Reported) [Super Beta Prostate ], PO BID, (Reported) Discontinued Medications Cholecalciferol (Vitamin D3)* (Vitamin D*), 1,000 UNIT ORAL DAILY, (Reported) Discontinued Reason: Pt stopped taking med FA/Vit C/E/Zinc/Copper/Lut/Janet (Ocuvel Capsule), 1 EACH PO BID, (Reported) Discontinued Reason: Pt stopped taking med Ursodiol (Ursodiol*), 300 MG ORAL TWICE A DAY, (Reported) Discontinued Reason: Pt stopped taking med Valsartan (Diovan), 80 MG ORAL NEEDED, (Reported) Discontinued Reason: Pt stopped taking med Vitamin E Mixed (Vitamin E), 400 UNIT PO DAILY, (Reported) Discontinued Reason: Pt stopped taking med Review of Systems Cardiovascular: Reports: no symptoms Respiratory: Reports: no symptoms Skeletal: Reports: no symptoms Gastrointestinal: Reports: no symptoms Genitourinary: Reports: no symptoms Neurologic: Reports: no symptoms Endocrine: Reports: no symptoms Hematologic: Reports: no symptoms Physical Exam Vital Signs Last Vital Signs Date Time Temp Pulse Resp B/P (MAP) Pulse Ox O2 Delivery O2 Flow Rate FiO2 04/10/19 08:32 Room Air 04/10/19 08:05 97.9 68 18 129/76 97 Labs Laboratory Tests Test 04/10/19 08:10 White Blood Count 8.1 K/UL (4.8-10.8) Red Blood Count 4.34 M/UL (4.70-6.10) L Hemoglobin 13.7 G/DL (14.2-18.0) L Hematocrit 41.1 % (42.0-52.0) L Mean Corpuscular Volume 95 FL (80-99) Mean Corpuscular Hemoglobin 31.6 PG (27.0-31.0) H Mean Corpuscular Hemoglobin Concent 33.5 G/DL (32.0-36.0) Red Cell Distribution Width 12.4 % (11.6-14.8) Platelet Count 270 K/UL (150-450) Mean Platelet Volume 5.6 FL (6.5-10.1) L Neutrophils (%) (Auto) 76.9 % (45.0-75.0) H Lymphocytes (%) (Auto) 12.8 % (20.0-45.0) L Monocytes (%) (Auto) 8.5 % (1.0-10.0) Eosinophils (%) (Auto) 1.0 % (0.0-3.0) Basophils (%) (Auto) 0.8 % (0.0-2.0) Prothrombin Time 10.2 SEC (9.30-11.50) Prothromb Time International Ratio 1.0 (0.9-1.1) Activated Partial Thromboplast Time 31 SEC (23-33) Sodium Level 137 MMOL/L (136-145) Potassium Level 4.4 MMOL/L (3.5-5.1) Chloride Level 105 MMOL/L (98-107) Carbon Dioxide Level 24 MMOL/L (21-32) Anion Gap 9 mmol/L (5-15) Blood Urea Nitrogen 31 mg/dL (7-18) H Creatinine 2.4 MG/DL (0.55-1.30) H Estimat Glomerular Filtration Rate 27.1 mL/min (>60) Glucose Level 103 MG/DL (74-106) Calcium Level 9.1 MG/DL (8.5-10.1) Total Bilirubin 0.4 MG/DL (0.2-1.0) Aspartate Amino Transf (AST/SGOT) 14 U/L (15-37) L Alanine Aminotransferase (ALT/SGPT) 15 U/L (12-78) Alkaline Phosphatase 117 U/L (46-116) H Total Protein 7.4 G/DL (6.4-8.2) Albumin 2.8 G/DL (3.4-5.0) L Globulin 4.6 g/dL Albumin/Globulin Ratio 0.6 (1.0-2.7) L Amylase Level 80 U/L (25-115) Lipase 359 U/L (73-393) Skin: normal HENT: normal Heart: normal Lungs: normal Abdomen: normal Extremities: normal Plan Plan of Care eus Attestation Are the patient's medical conditions optimized for surgery? Attestation Response: yes Nam Merchant MD Apr 10, 2019 08:46
[2019-04-10] MEDS ORDERED: Lidocaine 1% MPF 10mg/ml 5ml ONE (09:00)
[2019-04-10] MEDS ORDERED: Propofol 200mg/20ml IV ONE (09:00)
[2019-04-10] MEDS ORDERED: LR 1000ml ONE (09:00)
--- NOTE | 2019-04-10 10:01 | Endoscopy Procedure Note ---
Endoscopy Procedure Note General Indication for Procedure: panc cyst Procedures Performed: other - EUS Operative Findings/Diagnosis: same Specimen: yes Pt Tolerated Procedure Well: Yes Estimated Blood Loss: none Anesthesia Anesthesiologist: jared Anesthesia: MAC Inserted Devices Implant(s) used?: No GI Core Measures 50 yrs or older w/o bx or poly: Not Applicable 10yrs. F/U recommended: Not Applicable Nam Merchant MD Apr 10, 2019 10:01
--- NOTE | 2019-04-10 10:01 | Immediate Post-Op Evaluation ---
Immediate Post-Op Evalulation Immediate Post-Op Evalulation Procedure: EUS with FNA Date of Evaluation: Apr 10, 2019 Time of Evaluation: 10:03 IV Fluids: 500 Blood Products: 0 Estimated Blood Loss: 0 Urinary Output: 0 Blood Pressure Systolic: 96 Blood Pressure Diastolic: 45 Pulse Rate: 79 Respiratory Rate: 16 O2 Sat by Pulse Oximetry: 99 Temperature (Fahrenheit): 97.2 Pain Score (1-10): 0 Nausea: No Vomiting: No Complications 0 Patient Status: awake, reacts, patent, none Hydration Status: adequate Drug: levaquin 500mg Given Within 1 Hr of Incision: Yes Anahy Stewart MD Apr 10, 2019 10:01
--- NOTE | 2019-04-10 10:02 | 48 Hour Post Anesthesia Eval ---
Post Anesthesia Evaluation Procedure: EUS with FNA Date of Evaluation: Apr 10, 2019 Airway: patent Nausea: No Vomiting: No Pain Intensity: 0 Hydration Status: adequate Cardiopulmonary Status: at baseline Mental Status/LOC: patient returned to baseline Post-Anesthesia Complications: 0 Follow-up care needed: ready to discharge Anahy Stewart MD Apr 10, 2019 10:02
--- NOTE | 2019-04-10 17:30 | Procedure Note ---
DATE OF PROCEDURE: 04/10/2019 SURGEON: Nam Merchant M.D. PROCEDURE: EUS with FNA. ANESTHESIA: Per Dr. Vidal. INSTRUMENT: Olympus adult EUS scope. INDICATION: Pancreatic cyst. REASON FOR PROCEDURE: The procedure, risks, benefits, and possible consequences, including hemorrhage, aspiration, perforation and infection, and alternative treatments, were explained to the patient/legal guardian by Dr. Nam Merchant and the patient/legal guardian understood and accepted these risks. PROCEDURE IN DETAIL: After informed consent was obtained and the patient was adequately sedated, EUS scope was introduced into the stomach. The patient had a large pancreatic cyst measured about 10 cm in the mid tail of the pancreas. This was seen on the MRI. Then, at this time, the EUS linear scope was introduced. Using a 19-gauge needle, we aspirated about 310 mL of dark brown fluid highly suspicious for pseudocyst fluid and this was sent to the pathology for evaluation. The patient tolerated the procedure well without any complication. SUMMARY OF FINDINGS: Large cyst, most probably a pseudocyst in the tail of pancreas roughly about 10 cm status post 310 mL of fluid aspirations and evaluation. RECOMMENDATIONS: Follow up fluid evaluation, sent for CEA and amylase. The patient to come back in the office, most probably needs to be rescanned to see if this cyst grows back again. If the cyst grows back again, the patient might need a cystoenteric drainage. I want to thank Dr. Mina Solorzano for this kind referral. Nam Merchant M.D. DR: LUAN JOB#: [id number] CC: Mina Solorzano M.D.; Fax#: [phone]
== END 2019-04-10 10:00 | disposition home or self-care (01) ==
LOC: GAS 07:29
DX: K86.2 Cyst of pancreas (principal); I12.9 Hypertensive chronic kidney disease with stage 1 through stage 4 chronic kidney disease, or unspecified chronic kidney disease; N18.9 Chronic kidney disease, unspecified; Z91.040 Latex allergy status; Z79.899 Other long term (current) drug therapy
CPT/HCPCS: 36415; 43232; 80053; 82150; 83690; 85025; 85610; 85730; 93005; J1642; J1956; J2704; 94003; 94150

== ENCOUNTER 2019-04-15 12:52 | Outpatient (CLI) | payer MEDICARE, OTHER ==
[2019-04-15] MEDS ORDERED: URSODIOL300 MG ORAL (14:48)
[2019-04-15] MEDS ORDERED: PANTOPRAZOLE SO40 MG ORAL (14:48)
[2019-04-15] MEDS ORDERED: VITAMIN D400 INTLU ORAL (14:48)
[2019-04-15 14:49] VITALS: BP 123/70
--- NOTE | 2019-04-16 10:01 | General Progress Note ---
Assessment/Plan Problem List: (1) Hypertension ICD Codes: I10 - Essential (primary) hypertension SNOMED: 80584319 (2) Abdominal pain ICD Codes: R10.9 - Unspecified abdominal pain SNOMED: 83327324 (3) Pancreatitis ICD Codes: K85.9 - Acute pancreatitis, unspecified SNOMED: 22432477 (4) Gastritis ICD Codes: K29.70 - Gastritis, unspecified, without bleeding SNOMED: 9182616 (5) Pseudocyst of pancreas ICD Codes: K86.3 - Pseudocyst of pancreas SNOMED: 543636997 (6) Esophagitis ICD Codes: K20.9 - Esophagitis, unspecified SNOMED: 76576291 Assessment/Plan: s/p pseudocyst drainage CT next week for FU labs for today may need enternal drainage Subjective ROS Limited/Unobtainable: Yes Allergies: Coded Allergies: LATEX (Verified Allergy, Intermediate, 04/10/19) skin rash Uncoded Allergies: CLEAR TAPE (Allergy, Intermediate, 04/10/19) SKIN RASH Objective Last 24 Hour Vital Signs Date Time Temp Pulse Resp B/P (MAP) Pulse Ox O2 Delivery O2 Flow Rate FiO2 04/15/19 14:49 98.3 75 16 123/70 (87) 95 General Appearance: alert EENT: normal ENT inspection Neck: supple Cardiovascular: normal rate Respiratory/Chest: lungs clear Abdomen: normal bowel sounds, non tender, soft Extremities: non-tender Nam Merchant MD Apr 16, 2019 10:01
== END 2019-04-15 14:52 | disposition home or self-care (01) ==
LOC: PAN 12:52
DX: R10.9 Unspecified abdominal pain (principal); K85.90 Acute pancreatitis without necrosis or infection, unspecified; I10 Essential (primary) hypertension; K29.70 Gastritis, unspecified, without bleeding; K86.3 Pseudocyst of pancreas; K20.9 Esophagitis, unspecified; Z91.040 Latex allergy status

== ENCOUNTER 2019-04-23 10:26 | Outpatient (CLI) | payer MEDICARE, OTHER ==
[~2019-04-23 10:26] MED LIST changes: +PANTOPRAZOLE SO40 MG ORAL; +VITAMIN D400 INTLU ORAL
--- NOTE | 2019-04-23 17:48 | Diagnostic Imaging Report ---
Indication: Abdominal pain, history of pancreatic cystic lesion and history of pancreatitis Technique: Spiral acquisitions obtained through the abdomen and pelvis. Patient ingested a limited amount of oral contrast. No IV contrast utilized, per referring physician request.. Multiplanar reconstructions were generated. Total dose length product 1384.28 mGycm. CTDIvol(s) 26.25 mGy. Dose reduction achieved using automated exposure control Comparison: 11/25/2016, also abdominal MRI 11/29/2017 Findings: Previously demonstrated pancreatic tail cystic lesion has increased in size, currently measures 11.6 cm long axis dimension. This indents the lower pole of the spleen and also indents the upper pole of the left kidney. There is a 3.1 cm fluid collection which either abuts or is within the gastric wall along the greater curvature, suspect the former. There was a similar size collection on the previous exam that was located more medially so it is unclear whether this is the same collection or a new collection. There is a 1.8 cm cystic lesion in the uncinate process which is unchanged from the previous study. There is an ill-defined fluid collection adjacent to the upper pole of the left kidney. The pancreas itself is somewhat atrophic. Boundaries are fairly well-defined and there is no evidence of peripancreatic inflammation. Lack of IV contrast limits assessment of the solid organs. The gallbladder is nondistended. The liver is unremarkable. The spleen is enlarged, measuring 14 cm long axis dimension, although this could be exaggerated by the distortion by the pancreatic cyst. The right kidney has been removed in the interim since the prior CT scan, but was also absent on the prior MRI. There is no evidence of recurrent tumor in the nephrectomy bed. The adrenals are not well-demonstrated but grossly unremarkable. The left kidney demonstrates an ill-defined area of fluid adjacent to the upper pole. No definite focal left renal lesion. No left renal or ureteral calculi. No retroperitoneal mass or adenopathy. The prostate is mildly enlarged. The bladder is mildly thick walled. The rectum is mildly distended with stool, as previously, and there is considerable retained stool throughout the colon. No evidence of diverticulosis or diverticulitis. The appendix is not demonstrated, likely surgically absent given the presence of a staple line in the right lower quadrant. The distal esophagus, stomach, duodenum are unremarkable. No small bowel distention. The included lung bases are clear. The bones demonstrate degenerative spondylosis changes. Impression: Since 11/29/2017, increased size of previously demonstrated pancreatic tail cystic lesion, currently measuring 11.6 cm. This indents the adjacent spleen and left kidney. This is most likely a pancreatic pseudocyst, given history of pancreatitis. 3.1 cm cystic lesion within or adjacent to the gastric wall. Likely also represents a pseudocyst 1.8 cm cystic lesion within the uncinate process, also previously described. Most likely a pseudocyst, but also could represent a small cystic pancreatic neoplasm such as an IPMN . This is unchanged Mild pancreatic atrophy Ill-defined fluid collection adjacent to the upper pole of left kidney. 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
== END 2019-04-23 12:26 | disposition home or self-care (01) ==
LOC: CAT 10:26
DX: K86.2 Cyst of pancreas (principal); M47.9 Spondylosis, unspecified; Z90.89 Acquired absence of other organs; R16.1 Splenomegaly, not elsewhere classified; Z90.5 Acquired absence of kidney
CPT/HCPCS: 74176

== ENCOUNTER 2019-04-24 13:00 | Outpatient (CLI) | payer MEDICARE, OTHER ==
--- NOTE | 2019-04-24 13:31 | General Progress Note ---
Assessment/Plan Problem List: (1) Hypertension ICD Codes: I10 - Essential (primary) hypertension SNOMED: 13271698 (2) Abdominal pain ICD Codes: R10.9 - Unspecified abdominal pain SNOMED: 62900919 (3) Pancreatitis ICD Codes: K85.9 - Acute pancreatitis, unspecified SNOMED: 13665167 (4) Gastritis ICD Codes: K29.70 - Gastritis, unspecified, without bleeding SNOMED: 0889180 (5) Pseudocyst of pancreas ICD Codes: K86.3 - Pseudocyst of pancreas SNOMED: 511964211 (6) Esophagitis ICD Codes: K20.9 - Esophagitis, unspecified SNOMED: 60256483 (7) Anemia in CKD (chronic kidney disease) ICD Codes: N18.9 - Chronic kidney disease, unspecified; D63.1 - Anemia in chronic kidney disease SNOMED: 551413087 Assessment/Plan: s/p pseudocyst drainage but now coming back completed abx and has no abd pain needs cystogastrostomy drainage will plan soon Subjective ROS Limited/Unobtainable: Yes Allergies: Coded Allergies: LATEX (Verified Allergy, Intermediate, 04/10/19) skin rash Uncoded Allergies: CLEAR TAPE (Allergy, Intermediate, 04/10/19) SKIN RASH Objective General Appearance: alert EENT: normal ENT inspection Neck: supple Cardiovascular: normal rate Respiratory/Chest: decreased breath sounds Abdomen: normal bowel sounds, non tender, soft Extremities: non-tender Nam Merchant MD Apr 24, 2019 13:31
[2019-04-25 08:33] VITALS: BP 123/70
== END 2019-04-24 15:00 | disposition home or self-care (01) ==
LOC: PAN 13:00
DX: R10.9 Unspecified abdominal pain (principal); K85.90 Acute pancreatitis without necrosis or infection, unspecified; K29.70 Gastritis, unspecified, without bleeding; K86.3 Pseudocyst of pancreas; K20.9 Esophagitis, unspecified; N18.9 Chronic kidney disease, unspecified; D63.1 Anemia in chronic kidney disease; I12.9 Hypertensive chronic kidney disease with stage 1 through stage 4 chronic kidney disease, or unspecified chronic kidney disease; Z91.040 Latex allergy status
CPT/HCPCS: 99212

== ENCOUNTER 2019-05-08 15:03 | Inpatient (IN) | payer MEDICARE, OTHER ==
[~2019-05-08] VITALS: Ht 165.1 cm; Wt 91.6 kg
--- NOTE | 2019-05-08 15:32 | NUR ---
NURSE NOTES: Patient arrived on unit. Stable. Breathing is even and unlabored. Patient oriented to room, call light and unit. Patient is AOx4. Patient encouraged to use call light for assistance. Skin is clean, dry, and intact. Patient in bed in locked and lowest position with call light within reach. All safety measures provided. Will continue to monitor.
[2019-05-08 16:00] VITALS: BP 120/78
[2019-05-08] MEDS ORDERED: NovoLOG Insulin Flexpen SUBQ SCH (16:30)
[2019-05-08] MEDS: D5 1/2NS 1,000 ML IV SCH (17:12)
[2019-05-08] MEDS: Zoysn 3.37gm in NS 100ML IVPB SCH ×2 (17:29→22:42)
[2019-05-08] MEDS ORDERED: LORazepam Inj 2mg/ml 1ml IV PRN (18:30)
[2019-05-08] MEDS ORDERED: Morphine Sulfate 2mg/ml Inj(IV/IM USE ONLY) IVP PRN (18:30)
[2019-05-08] MEDS ORDERED: Metoclopramide 10mg/2ml Inj IVP PRN (18:30)
[2019-05-08] MEDS ORDERED: Nitroglycerin Subl 0.4mg tab SL PRN (18:30)
--- NOTE | 2019-05-08 19:00 | NUR ---
NURSE NOTES: Patient vomited x1. Dr. Solorzano aware. Will give zofran x1 as ordered.
--- NOTE | 2019-05-08 19:30 | NUR ---
HAND-OFF: Report given to Vikram PATTON. Patient is stable.
[2019-05-08 20:00] VITALS: BP 133/67
--- NOTE | 2019-05-08 20:06 | NUR ---
NURSE NOTES: Received patient from Jennifer Mccoy RN. Patient is resting comfortably in bed. c/o of nausea and vomitus x1. Given medication according to eMAR. L wrist 22g IV is intact. NPO after midnight sign is placed on door.
[2019-05-08] MEDS ORDERED: Piperacillin/Tazobactam 2.25 GM in D5W 55 ML IVPB SCH (22:00)
[2019-05-09] VITALS: BP 127/78
[2019-05-09] MEDS: D5 1/2NS 1,000 ML IV SCH ×3 (02:08→21:09)
[2019-05-09 04:00] VITALS: BP 93/50
[2019-05-09] MEDS: Zoysn 3.37gm in NS 100ML IVPB SCH ×3 (05:02→21:09)
[2019-05-09 06:17] LABS: BASOPHILS % (AUTO) 0.4 % (0.0-2.0); EOSINOPHILS % (AUTO) 0.4 % (0.0-3.0); HEMATOCRIT 43.1 % (42.0-52.0); HEMOGLOBIN 14.3 G/DL (14.2-18.0); LYMPHOCYTES % (AUTO) 11.6 % (20.0-45.0); MEAN CORPUSCULAR VOLUME 95 FL (80-99); MONOCYTES % (AUTO) 9.8 % (1.0-10.0); NEUTROPHILS % (AUTO) 77.8 % (45.0-75.0); PLATELET COUNT 232 K/UL (150-450); RED BLOOD COUNT 4.55 M/UL (4.70-6.10); RED CELL DISTRIBUTION WIDTH 13.4 % (11.6-14.8); WHITE BLOOD COUNT 12.4 K/UL (4.8-10.8)
[2019-05-09 07:00] LABS: ALANINE AMINOTRANSFERASE 14 U/L (12-78); ALBUMIN/GLOBULIN RATIO 0.8 (1.0-2.7); ALKALINE PHOSPHATASE 97 U/L (46-116); AMYLASE 191 U/L (25-115); ANION GAP 9 mmol/L (5-15); ASPARTATE AMINO TRANSFERASE 11 U/L (15-37); BILIRUBIN,TOTAL 0.7 MG/DL (0.2-1.0); BLOOD UREA NITROGEN 30 mg/dL (7-18); CALCIUM 8.8 MG/DL (8.5-10.1); CARBON DIOXIDE 27 MMOL/L (21-32); CHLORIDE 105 MMOL/L (98-107); CREATININE 2.6 MG/DL (0.55-1.30); POTASSIUM 3.7 MMOL/L (3.5-5.1); SODIUM 141 MMOL/L (136-145)
--- NOTE | 2019-05-09 07:30 | NUR ---
NURSE NOTES: Patient is in bed awake and able to verbalize needs. Stable. Denies pain or SOB. Patient is NPO. Patient encouraged to use call light for assistance, verbalized understanding. Patient is in good spirits in bed in locked and lowest position, all safety measures provided. Will continue to monitor.
[2019-05-09 08:00] VITALS: BP 110/54
[2019-05-09] MEDS ORDERED: Losartan 50mg tab ORAL SCH (09:00)
[2019-05-09] MEDS: Heparin 5000 units/ml inj SUBQ SCH ×2 (10:20→21:12)
[2019-05-09 12:00] VITALS: BP 100/55
--- NOTE | 2019-05-09 13:28 | Consultation ---
History of Present Illness General Date patient seen: May 09, 2019 Reason for Consultation: inpatienet management Present Illness HPI 68-year-old white male with hx of pancreatitis and pancreatic cyst (s/p drainage of pancreatic cyst one week ago), presents with a chief complaint of abdominal pain, nausea, and vomiting. The patient has been experiencing bilateral lower abdominal pain. The patient also has intractable nausea and vomiting. Pt was diagnosed to acute acute pancreatitis and admitted for further work up. Allergies: Coded Allergies: LATEX (Verified Allergy, Intermediate, 04/10/19) skin rash Uncoded Allergies: CLEAR TAPE (Allergy, Intermediate, 04/10/19) SKIN RASH Medication History Scheduled Finasteride* (Proscar*), 5 MG ORAL DAILY, (Reported) Losartan Potassium* (Losartan Potassium*), 100 MG ORAL DAILY, (Reported) Pantoprazole* (Pantoprazole*), 40 MG ORAL DAILY, (Reported) Ursodiol (Ursodiol*), 250 MG ORAL TWICE A DAY, (Reported) Vitamin D (Vitamin D3), 1,000 UNITS ORAL DAILY, (Reported) Patient History Healthcare decision maker Saúl Gutierrez Resuscitation status Full Code Advanced Directive on File No Past Medical/Surgical History Past Medical/Surgical History: (1) Pseudocyst of pancreas (2) Anemia in CKD (chronic kidney disease) (3) Hypertension (4) History of nephrectomy, right Review of Systems All Other Systems: negative except mentioned in HPI Physical Exam General Appearance: WD/WN Lines, tubes and drains: peripheral HEENT: normocephalic, atraumatic Neck: non-tender, normal alignment Respiratory/Chest: chest wall non-tender, lungs clear, normal breath sounds, decreased breath sounds Cardiovascular/Chest: normal peripheral pulses, normal rate Abdomen: normal bowel sounds, non tender Genitourinary/Rectal: normal genital exam Extremities: normal range of motion Last 24 Hour Vital Signs Date Time Temp Pulse Resp B/P (MAP) Pulse Ox O2 Delivery O2 Flow Rate FiO2 05/09/19 12:00 97.7 75 18 100/55 (70) 5 05/09/19 09:00 110/54 05/09/19 09:00 Room Air 05/09/19 08:00 97.6 55 20 110/54 (72) 96 05/09/19 04:00 98.2 67 18 93/50 (64) 94 05/09/19 00:00 97.5 83 18 127/78 (94) 93 05/08/19 21:00 Room Air 05/08/19 20:00 98.5 92 20 133/67 (89) 94 05/08/19 16:00 98.7 82 21 120/78 (92) 97 05/08/19 15:14 Room Air Intake and Output 05/08/19 05/09/19 19:00 07:00 Intake Total 100 ml 1140 ml Output Total 800 ml Balance 100 ml 340 ml Intake Oral 240 ml IV Total 100 ml 900 ml Output Emesis 800 ml # Voids 3 Laboratory Tests Test 05/09/19 04:55 White Blood Count 12.4 K/UL (4.8-10.8) H Red Blood Count 4.55 M/UL (4.70-6.10) L Hemoglobin 14.3 G/DL (14.2-18.0) Hematocrit 43.1 % (42.0-52.0) Mean Corpuscular Volume 95 FL (80-99) Mean Corpuscular Hemoglobin 31.4 PG (27.0-31.0) H Mean Corpuscular Hemoglobin Concent 33.2 G/DL (32.0-36.0) Red Cell Distribution Width 13.4 % (11.6-14.8) Platelet Count 232 K/UL (150-450) Mean Platelet Volume 6.0 FL (6.5-10.1) L Neutrophils (%) (Auto) 77.8 % (45.0-75.0) H Lymphocytes (%) (Auto) 11.6 % (20.0-45.0) L Monocytes (%) (Auto) 9.8 % (1.0-10.0) Eosinophils (%) (Auto) 0.4 % (0.0-3.0) Basophils (%) (Auto) 0.4 % (0.0-2.0) Activated Partial Thromboplast Time 29 SEC (23-33) Sodium Level 141 MMOL/L (136-145) Potassium Level 3.7 MMOL/L (3.5-5.1) Chloride Level 105 MMOL/L (98-107) Carbon Dioxide Level 27 MMOL/L (21-32) Anion Gap 9 mmol/L (5-15) Blood Urea Nitrogen 30 mg/dL (7-18) H Creatinine 2.6 MG/DL (0.55-1.30) H Estimat Glomerular Filtration Rate 24.7 mL/min (>60) Glucose Level 132 MG/DL (74-106) H Calcium Level 8.8 MG/DL (8.5-10.1) Total Bilirubin 0.7 MG/DL (0.2-1.0) Aspartate Amino Transf (AST/SGOT) 11 U/L (15-37) L Alanine Aminotransferase (ALT/SGPT) 14 U/L (12-78) Alkaline Phosphatase 97 U/L (46-116) Total Protein 7.0 G/DL (6.4-8.2) Albumin 3.0 G/DL (3.4-5.0) L Globulin 4.0 g/dL Albumin/Globulin Ratio 0.8 (1.0-2.7) L Amylase Level 191 U/L (25-115) H Lipase 299 U/L (73-393) Height (Feet): 5 Height (Inches): 11.00 Weight (Pounds): 202 Medications Current Medications Medications (Trade) Dose Ordered Sig/Herminio Route PRN Reason Start Time Stop Time Status Last Admin Dose Admin Acetaminophen (Tylenol) 650 mg Q4H PRN ORAL Mild Pain/Temp > 100.5 05/08/19 15:30 06/07/19 15:29 05/09/19 10:21 Dextrose (Dextrose 50%) 25 ml Q30M PRN IV Hypoglycemia 05/08/19 18:30 06/07/19 18:29 Dextrose (Dextrose 50%) 50 ml Q30M PRN IV Hypoglycemia 05/08/19 18:30 06/07/19 18:29 Dextrose/Sodium Chloride 1,000 ml @ 100 mls/hr Q10H IV 05/08/19 15:30 06/07/19 15:29 05/09/19 11:24 Diphenhydramine HCl (Benadryl) 25 mg Q6H PRN ORAL Itching/Pruritis 05/08/19 18:30 06/07/19 18:29 Finasteride (Proscar) 5 mg DAILY ORAL 05/09/19 09:00 06/08/19 08:59 05/09/19 10:18 Heparin Sodium (Porcine) (Heparin 5000 units/ml) 5,000 units EVERY 12 HOURS SUBQ 05/09/19 09:00 06/08/19 08:59 05/09/19 10:20 Lorazepam (Ativan 2mg/ml 1ml) 1 mg Q4H PRN IV agitation 05/08/19 18:30 05/15/19 18:29 Losartan Potassium (Cozaar) 100 mg DAILY ORAL 05/09/19 09:00 06/08/19 08:59 Metoclopramide HCl (Reglan) 10 mg Q6H PRN IVP severe nausea 05/08/19 18:30 06/07/19 18:29 05/08/19 23:08 Morphine Sulfate (Morphine Sulfate) 2 mg Q4H PRN IVP severe Pain (Pain Scale 7-10) 05/08/19 18:30 05/15/19 18:29 Nitroglycerin (Ntg) 0.4 mg Q5M X 3 DOSES PRN SL Prn Chest Pain 05/08/19 18:30 06/07/19 18:29 Ondansetron HCl (Zofran) 4 mg Q4H PRN IVP Nausea & Vomiting 05/08/19 23:00 06/07/19 22:59 Pantoprazole (Protonix) 40 mg DAILY ORAL 05/09/19 09:00 06/08/19 08:59 05/09/19 10:17 Piperacillin Sod/ Tazobactam Sod 3.375 gm/Sodium Chloride 110 ml @ 27.5 mls/hr EVERY 8 HOURS IVPB 05/08/19 17:00 05/13/19 16:59 05/09/19 05:02 Temazepam (Restoril) 15 mg HSPRN PRN ORAL Insomnia 05/08/19 18:30 05/15/19 18:29 Assessment/Plan Problem List: (1) Pancreatitis ICD Codes: K85.9 - Acute pancreatitis, unspecified SNOMED: 34127779 (2) Renal insufficiency, mild ICD Codes: N28.9 - Disorder of kidney and ureter, unspecified SNOMED: 257223695 (3) Anemia in CKD (chronic kidney disease) ICD Codes: N18.9 - Chronic kidney disease, unspecified; D63.1 - Anemia in chronic kidney disease SNOMED: 172987893 (4) Pseudocyst of pancreas ICD Codes: K86.3 - Pseudocyst of pancreas SNOMED: 972314830 (5) History of nephrectomy, right ICD Codes: Z90.5 - Acquired absence of kidney SNOMED: 52911730319451 (6) Hypertension ICD Codes: I10 - Essential (primary) hypertension SNOMED: 07333998 Assessment/Plan: NPO iv fluids GI f/u symptomatic treatment anemia w/u f/u creatinine avoid nephrotoxic agent Di Britton MD May 09, 2019 13:27
--- NOTE | 2019-05-09 13:34 | GI Initial Consult Note ---
History of Present Illness General Date patient seen: May 09, 2019 Time patient seen: 13:30 Referring physician: ATIYA MENON Reason for Consultation: PANCREATITIS Present Illness HPI This is a 68-year-old male patient with history of pancreatic pseudocyst secondary, pancreatitis, acute renal failure that presented to our outpatient clinic for routine follow-up. The patient presented with multiple episodes of severe vomiting in which he described as bile. The patient denied any hematemesis or coffee grounds. The patient recently underwent an endoscopic ultrasound with fine-needle aspiration on April 10, 2019 which approximately 310 mL of fluid aspirations and evacuation. At this time it was noted that there was a large pseudocyst on the tail of the pancreas measuring roughly up to 10 cm. Due to the excessive nausea and vomiting, the patient was directly into the hospital for a possible repeat drainage. Labs reviewed; WBC 12.4, creatinine of 2.6, lipase level of 299, amylase level of 191. Home Meds Reported Medications Vitamin D (Vitamin D3) 400 Unit Tablet, 1000 UNITS ORAL DAILY, TAB 04/15/19 Pantoprazole* (PANTOPRAZOLE*) 40 Mg Tablet.dr, 40 MG ORAL DAILY, TAB 04/15/19 Ursodiol (URSODIOL*) 300 Mg Capsule, 250 MG ORAL TWICE A DAY, #30 CAP 0 Refills 04/15/19 Losartan Potassium* (LOSARTAN POTASSIUM*) 25 Mg Tablet, 100 MG ORAL DAILY, TAB 05/15/18 Finasteride* (PROSCAR*) 5 Mg Tablet, 5 MG ORAL DAILY, #30 TAB 0 Refills 12/05/17 Med list reviewed/reconciled: Yes Allergies: Coded Allergies: LATEX (Verified Allergy, Intermediate, 04/10/19) skin rash Uncoded Allergies: CLEAR TAPE (Allergy, Intermediate, 04/10/19) SKIN RASH Patient History History Provided By: Patient, Medical Record PMH Narrative See HPI Social History: Denies: smoking, alcohol use, drug use, other Review of Systems All Other Systems: negative except mentioned in HPI Physical Exam Vital Signs Date Time Temp Pulse Resp B/P (MAP) Pulse Ox O2 Delivery O2 Flow Rate FiO2 05/08/19 15:14 Room Air 05/08/19 16:00 98.7 82 21 120/78 (92) 97 Sp02 EP Interpretation: reviewed, normal Labs Laboratory Tests Test 05/09/19 04:55 White Blood Count 12.4 K/UL (4.8-10.8) H Red Blood Count 4.55 M/UL (4.70-6.10) L Hemoglobin 14.3 G/DL (14.2-18.0) Hematocrit 43.1 % (42.0-52.0) Mean Corpuscular Volume 95 FL (80-99) Mean Corpuscular Hemoglobin 31.4 PG (27.0-31.0) H Mean Corpuscular Hemoglobin Concent 33.2 G/DL (32.0-36.0) Red Cell Distribution Width 13.4 % (11.6-14.8) Platelet Count 232 K/UL (150-450) Mean Platelet Volume 6.0 FL (6.5-10.1) L Neutrophils (%) (Auto) 77.8 % (45.0-75.0) H Lymphocytes (%) (Auto) 11.6 % (20.0-45.0) L Monocytes (%) (Auto) 9.8 % (1.0-10.0) Eosinophils (%) (Auto) 0.4 % (0.0-3.0) Basophils (%) (Auto) 0.4 % (0.0-2.0) Activated Partial Thromboplast Time 29 SEC (23-33) Sodium Level 141 MMOL/L (136-145) Potassium Level 3.7 MMOL/L (3.5-5.1) Chloride Level 105 MMOL/L (98-107) Carbon Dioxide Level 27 MMOL/L (21-32) Anion Gap 9 mmol/L (5-15) Blood Urea Nitrogen 30 mg/dL (7-18) H Creatinine 2.6 MG/DL (0.55-1.30) H Estimat Glomerular Filtration Rate 24.7 mL/min (>60) Glucose Level 132 MG/DL (74-106) H Calcium Level 8.8 MG/DL (8.5-10.1) Total Bilirubin 0.7 MG/DL (0.2-1.0) Aspartate Amino Transf (AST/SGOT) 11 U/L (15-37) L Alanine Aminotransferase (ALT/SGPT) 14 U/L (12-78) Alkaline Phosphatase 97 U/L (46-116) Total Protein 7.0 G/DL (6.4-8.2) Albumin 3.0 G/DL (3.4-5.0) L Globulin 4.0 g/dL Albumin/Globulin Ratio 0.8 (1.0-2.7) L Amylase Level 191 U/L (25-115) H Lipase 299 U/L (73-393) General Appearance: well appearing, no apparent distress, alert Head: normocephalic EENT: PERRL/EOMI, normal ENT inspection Neck: supple Respiratory: normal breath sounds, no respiratory distress Cardiovascular: normal rate Gastrointestinal: normal inspection, non tender, soft, normal bowel sounds, non -distended Rectal: deferred Genitourinary: deferred Musculoskeletal: normal inspection, back normal Neurologic: normal inspection, alert, oriented x3, responsive Psychiatric: normal inspection, judgement/insight normal, memory normal Skin: normal inspection, normal color, no rash, warm/dry, palpation normal, well hydrated Lymphatic: normal inspection, no adenopathy Current Medications Current Medications Medications (Trade) Dose Ordered Sig/Herminio Route PRN Reason Start Time Stop Time Status Last Admin Dose Admin Acetaminophen (Tylenol) 650 mg Q4H PRN ORAL Mild Pain/Temp > 100.5 05/08/19 15:30 06/07/19 15:29 05/09/19 10:21 Dextrose (Dextrose 50%) 25 ml Q30M PRN IV Hypoglycemia 05/08/19 18:30 06/07/19 18:29 Dextrose (Dextrose 50%) 50 ml Q30M PRN IV Hypoglycemia 05/08/19 18:30 06/07/19 18:29 Dextrose/Sodium Chloride 1,000 ml @ 100 mls/hr Q10H IV 05/08/19 15:30 06/07/19 15:29 05/09/19 11:24 Diphenhydramine HCl (Benadryl) 25 mg Q6H PRN ORAL Itching/Pruritis 05/08/19 18:30 06/07/19 18:29 Finasteride (Proscar) 5 mg DAILY ORAL 05/09/19 09:00 06/08/19 08:59 05/09/19 10:18 Heparin Sodium (Porcine) (Heparin 5000 units/ml) 5,000 units EVERY 12 HOURS SUBQ 05/09/19 09:00 06/08/19 08:59 05/09/19 10:20 Lorazepam (Ativan 2mg/ml 1ml) 1 mg Q4H PRN IV agitation 05/08/19 18:30 05/15/19 18:29 Losartan Potassium (Cozaar) 100 mg DAILY ORAL 05/09/19 09:00 06/08/19 08:59 Metoclopramide HCl (Reglan) 10 mg Q6H PRN IVP severe nausea 05/08/19 18:30 06/07/19 18:29 05/08/19 23:08 Morphine Sulfate (Morphine Sulfate) 2 mg Q4H PRN IVP severe Pain (Pain Scale 7-10) 05/08/19 18:30 05/15/19 18:29 Nitroglycerin (Ntg) 0.4 mg Q5M X 3 DOSES PRN SL Prn Chest Pain 05/08/19 18:30 06/07/19 18:29 Ondansetron HCl (Zofran) 4 mg Q4H PRN IVP Nausea & Vomiting 05/08/19 23:00 06/07/19 22:59 Pantoprazole (Protonix) 40 mg DAILY ORAL 05/09/19 09:00 06/08/19 08:59 05/09/19 10:17 Piperacillin Sod/ Tazobactam Sod 3.375 gm/Sodium Chloride 110 ml @ 27.5 mls/hr EVERY 8 HOURS IVPB 05/08/19 17:00 05/13/19 16:59 05/09/19 05:02 Temazepam (Restoril) 15 mg HSPRN PRN ORAL Insomnia 05/08/19 18:30 05/15/19 18:29 GI: Plan Problems: (1) Renal failure, acute (2) Pancreatitis (3) Pseudocyst of pancreas Plan Plan for EGD EUS with fine-needle aspiration tomorrow for repeat drainage of the pseudocyst. Continue diet, n.p.o. at midnight Hold all blood thinners tonight Continue PPI PRN transfusions Antibiotics Follow labs We will follow with additional recommendations postprocedure. Discussed with Dr. Merchant. Thank you for this patient referral, we will follow. The patient was seen and examined at bedside and all new and available data was reviewed in the patients chart. I agree with the above findings, impression and plan. (Patient seen earlier today. Signature stamp does not reflect patient encounter time.). - MD Debbie Powell,[facility] [employer] HELPER May 09, 2019 13:34
[2019-05-09 13:53] LABS: CREATINE KINASE 43 U/L (26-308)
--- NOTE | 2019-05-09 14:56 | Diagnostic Imaging Report ---
Indication: Abdominal pain Technique: Grayscale and duplex Doppler imaging of the abdomen performed. Comparison: None Findings: The liver is unremarkable. Doppler interrogation of the main portal vein shows patency with hepatopedal, monophasic flow. CBD is 6 mm. There is no intrahepatic biliary ductal dilatation identified. Gallbladder is contracted with a stone noted. Sonographic [place]'s is negative per technologist. There is a large cystic lesion in the splenic hilum possibly associated with the tail the pancreas measuring about 7 cm. There is a 3 cm cyst within the left kidney. The right kidney is absent. There is no hydronephrosis. IMPRESSION: 7 cm cyst in the splenic hilum possibly arising from the pancreatic tail. Consider evaluation with contrast-enhanced CT. Cholelithiasis. Left renal cyst Right nephrectomy
--- NOTE | 2019-05-09 15:29 | History & Physical ---
Gurvinder Alexis MD May 09, 2019 15:29
--- NOTE | 2019-05-09 15:30 | NUR ---
CASE MANAGEMENT:REVIEW 68 YR OLD MALE SI: PANCREATITIS. ANEMIA. HTN 98.7 82 21 120/78 97% ON RA WBC+12.4 BUN+30 CR+2.6 IS: IVF@100/HR IV ZOSYN Q8HRS HEPARIN SQ Q12 PROTONIX PO QD COZAAR PO QD : TO MED/SURG UNIT
--- NOTE | 2019-05-09 15:35 | Consultation ---
Consult Note Consult Note I was asked to eval for renal failure- Known to me from 2016 admission - at the time Cr = 1.8 This is a 68-year-old male patient with history of pancreatic pseudocyst secondary, pancreatitis, acute renal failure The patient presented with multiple episodes of severe vomiting in which he described as bile. The patient denied any hematemesis or coffee grounds. The patient recently underwent an endoscopic ultrasound with fine-needle aspiration on April 10, 2019 which approximately 310 mL of fluid aspirations and evacuation. At this time it was noted that there was a large pseudocyst on the tail of the pancreas measuring roughly up to 10 cm. Due to the excessive nausea and vomiting, the patient was directly into the hospital for a possible repeat drainage. Labs reviewed; WBC 12.4, creatinine of 2.6, lipase level of 299, amylase level of 191. data reviewed examined . Assessment/Plan acute on chronic renal failure- GI Pathology: pancreatic cyst and Pancreatitis HyperUrecemia HTN BPH Right renal cancer, status post nephrectomy. Hydrate avoid nephrotoxics monitor renal parameters and Uric acid parameters for antihypertensives Gurvinder Alexis MD May 09, 2019 15:35
[2019-05-09 16:00] VITALS: BP 114/63
[2019-05-09 16:43] LABS: APPEARANCE,URINE CLEAR; BILIRUBIN, URINE NEGATIVE (NEGATIVE); GLUCOSE, URINE (UA) 1+ (NEGATIVE); KETONES,URINE NEGATIVE (NEGATIVE); LEUKOCYTE ESTERASE ,URINE NEGATIVE (NEGATIVE); NITRITE,URINE NEGATIVE (NEGATIVE); PH,URINE 7 (4.5-8.0); PROTEIN,URINE 3+ (NEGATIVE); UROBILINOGEN,URINE NORMAL MG/DL (0.0-1.0)
[2019-05-09 16:44] LABS: COLOR,URINE YELLOW
--- NOTE | 2019-05-09 17:35 | History & Physical ---
History and Physical History & Physicial Dictated for Int Med-DR Solorzano no. [id number]. Mark Martinez MD May 09, 2019 17:35
--- NOTE | 2019-05-09 19:00 | History and Physical Report ---
DATE OF ADMISSION: 05/08/2019 CHIEF COMPLAINT: The patient is a 68-year-old white male, who presents with a chief complaint of abdominal pain, nausea, and vomiting. HISTORY OF PRESENT ILLNESS: The patient has a history of pancreatitis three years ago. The patient then was found to have a cyst to the pancreatic tail. The patient underwent drainage of pancreatic cyst approximately three weeks ago by Dr. Nam Merchant. A biopsy was reported as benign. The patient had appointment with Dr. Merchant on Monday. The patient has been experiencing bilateral lower abdominal pain. Pain radiates to the left upper quadrant. The patient also began to experience intractable nausea and vomiting. The patient was sent to [facility] for evaluation. The patient is admitted with pancreatic cyst, nausea, vomiting, and abdominal pain. REVIEW OF SYSTEMS: CONSTITUTIONAL: The patient denies weight loss or weight gain. The patient denies fevers or chills. HEENT: The patient denies ear or throat pain. The patient denies headache. CARDIOVASCULAR: The patient denies palpitation or chest pain. CHEST: The patient denies wheeze or shortness of breath. ABDOMEN: The patient complains of nausea and vomiting as above. The patient complains of abdominal pain as above. The patient denies constipation or diarrhea. NEUROLOGIC: The patient denies seizures or generalized weakness. GENITOURINARY: The patient denies dysuria or increased frequency of urination. PAST MEDICAL HISTORY: Significant for: 1. Hypertension. 2. Benign prostatic hypertrophy. 3. Right renal cancer, status post nephrectomy. PAST SURGICAL HISTORY: Significant for right nephrectomy in 2017. CURRENT MEDICATIONS: 1. Vitamin D 1000 units p.o. daily. 2. Pantoprazole 40 mg p.o. daily. 3. Ursodiol 250 mg twice daily. 4. Losartan 100 mg p.o. daily. 5. Proscar 5 mg p.o. daily. ALLERGIES: To latex and clear surgical tape. SOCIAL HISTORY: The patient is single and is retired. The patient denies tobacco or alcohol use. PHYSICAL EXAMINATION: VITAL SIGNS: Temperature 98.7, respirations 21, pulse 82, blood pressure 120/70. GENERAL: The patient is a well-developed, well-nourished white male, in no apparent distress. HEENT: Eyes, pupils are equal and responsive to light and accommodation. Extraocular movements are intact. NECK: Supple without lymphadenopathy. CHEST: Lungs are clear to auscultation bilaterally without wheezes or rales. CARDIOVASCULAR: Regular rhythm and rate. S1, S2 normal without murmurs, rubs, or gallops. ABDOMEN: Soft, distended with decreased bowel sounds. Tenderness to palpation left upper quadrant. No rebound or guarding. EXTREMITIES: Negative for clubbing, cyanosis, or edema. RECTAL/GENITAL: Not performed. NEUROLOGIC: Cranial nerves II through XII are grossly intact without focal deficits. Motor strength is 5/5 bilaterally. Deep tendon reflexes are 2+ plantar. LABORATORY STUDIES: WBC 12.4, hemoglobin 14.3, hematocrit 43.1, platelets 232,000. Sodium 141, potassium 3.7, chloride 105, CO2 27, BUN 30, creatinine 2.6, glucose 132. Amylase 191 and lipase 299. An ultrasound of the abdomen revealed a cystic lesion in the splenic hilum approximately 7 cm in diameter. ASSESSMENT: This is a 68-year-old white male. 1. Pancreatitis. 2. Pancreatic cyst. 3. Hypertension. 4. Benign prostatic hypertrophy. 5. History of right renal cancer. TREATMENT: 1. Pancreatitis and pancreatic cyst. A Gastroenterology consultation has been obtained with Dr. Nam Merchant. The patient is scheduled for endoscopic placement of drain of pancreatic cyst as above. We will follow recommendations of Gastroenterology. 2. Renal failure. The patient has a history of right nephrectomy secondary to renal cancer. A Nephrology consultation has been obtained with Dr. Alexis. 3. Hypertension. Continue losartan as above. 4. Benign prostatic hypertrophy. Continue Proscar as above. Mark Martinez M.D. DR: KAELA JOB#: [id number] CC:
--- NOTE | 2019-05-09 19:30 | NUR ---
HAND-OFF: Report given to Katerine RN. Patient is stable.
--- NOTE | 2019-05-09 19:30 | NUR ---
NURSE NOTES: Patient signed all consents for procedures tomorrow after speaking with MD.
--- NOTE | 2019-05-09 19:47 | NUR ---
NURSE NOTES: RECEIVED PT FROM POOJA HENDRIX. PT IS AWAKE, AAO X4, ON ROOM AIR, NO ACUTE DISTRESS NOTED. C/O MILD ABDOMEN PAIN 5/10, PT STATES IT'S TOLERABLE AT THE MOMENT. IV ON LEFT WRIST 22G IS INTACT AND PATENT. NPO AT MIDNIGHT, PT VERBALIZED UNDERSTANDING. BED IS LOW AND LOCKED, BED ALARMS ACTIVE, SIDE RAILS UP X2 AND CALL LIGHT IS WITHIN REACH. WILL CONTINUE TO MONITOR.
[2019-05-09 20:00] VITALS: BP 98/57
[2019-05-10] VITALS (11 sets, daily range): BP systolic 96–157; BP diastolic 56–84
--- NOTE | 2019-05-10 04:00 | NUR ---
NURSE NOTES: PT IS ASLEEP. VSS.
[2019-05-10 05:47] LABS: BASOPHILS % (AUTO) 0.8 % (0.0-2.0); EOSINOPHILS % (AUTO) 2.6 % (0.0-3.0); LYMPHOCYTES % (AUTO) 14.6 % (20.0-45.0); MEAN CORPUSCULAR VOLUME 95 FL (80-99); MONOCYTES % (AUTO) 9.8 % (1.0-10.0); NEUTROPHILS % (AUTO) 72.1 % (45.0-75.0); PLATELET COUNT 146 K/UL (150-450); RED BLOOD COUNT 3.79 M/UL (4.70-6.10); RED CELL DISTRIBUTION WIDTH 13.2 % (11.6-14.8)
[2019-05-10] MEDS: Zoysn 3.37gm in NS 100ML IVPB SCH (06:08)
[2019-05-10 06:21] LABS: ALANINE AMINOTRANSFERASE 15 U/L (12-78); ALBUMIN 2.4 G/DL (3.4-5.0); ALBUMIN/GLOBULIN RATIO 0.7 (1.0-2.7); ALKALINE PHOSPHATASE 78 U/L (46-116); AMYLASE 177 U/L (25-115); ANION GAP 6 mmol/L (5-15); ASPARTATE AMINO TRANSFERASE 11 U/L (15-37); BILIRUBIN,TOTAL 0.7 MG/DL (0.2-1.0); BLOOD UREA NITROGEN 27 mg/dL (7-18); CARBON DIOXIDE 27 MMOL/L (21-32); CHLORIDE 107 MMOL/L (98-107); CHOLESTEROL 95 MG/DL (< 200); CREATININE 2.8 MG/DL (0.55-1.30); HDL CHOLESTEROL 29 MG/DL (40-60); PHOSPHORUS 3.4 MG/DL (2.5-4.9); POTASSIUM 3.7 MMOL/L (3.5-5.1); SODIUM 140 MMOL/L (136-145); TRIGLYCERIDES 67 MG/DL (30-150)
[2019-05-10] MEDS: D5 1/2NS 1,000 ML IV SCH ×2 (07:12→17:28)
--- NOTE | 2019-05-10 07:30 | NUR ---
NURSE NOTES: Patient lying in bed awake. No complain of pain or distress at this time. Skin intact and dry. IV dressing intact and dry. NPO for procedure. Bed lowest position. Call light within reach. Will continue to monitor.
[2019-05-10] MEDS: Heparin 5000 units/ml inj SUBQ SCH ×2 (09:00→21:00)
[2019-05-10] MEDS ORDERED: Losartan 50mg tab ORAL SCH (09:00)
[2019-05-10] MEDS ORDERED: Rocuronium Bromide 50mg/5ml Inj IV ONE (09:02)
--- NOTE | 2019-05-10 09:24 | NUR ---
NURSE NOTES: Patient off unit for procedure in stable condition. IV patent.
--- NOTE | 2019-05-10 09:53 | Pre-Procedure Note/Attestation ---
Pre-Procedure Note/Attestation Complete Prior to Procedure Planned Procedure: not applicable Procedure Narrative: eus and pseudocyst drainage Indications for Procedure Pre-Operative Diagnosis: panc cyst Attestation I attest that I discussed the nature of the procedure; its benefits; risks and complications; and alternatives (and the risks and benefits of such alternatives ), prior to the procedure, with the patient (or the patient's legal sales donor recruitment representative). I attest that, if there was a reasonable possibility of needing a blood transfusion, the patient (or the patient's legal sales donor recruitment representative) was given the [facility] standardized written summary, pursuant to the Cedric [place] Blood Safety Act ([place] Health and Safety Code # 1645, as amended). I attest that I re-evaluated the patient just prior to the surgery and that there has been no change in the patient's H&P, except as documented below: Nam Merchant MD May 10, 2019 09:53
[2019-05-10] MEDS ORDERED: Propofol 200mg/20ml IV ONE (10:00)
[2019-05-10] MEDS ORDERED: LR 1000ml ONE (10:00)
[2019-05-10] MEDS ORDERED: NS 500ML ONE (10:00)
[2019-05-10] MEDS ORDERED: Lidocaine 1% MPF 10mg/ml 5ml ONE (10:00)
[2019-05-10] MEDS ORDERED: NS 500ML IVPB ONE (10:00)
[2019-05-10] MEDS ORDERED: Iothalamate Meglumine 60% 30ML INJ ONE (10:06)
--- NOTE | 2019-05-10 10:33 | Nephrology Progress Note ---
Assessment/Plan Problem List: (1) Acute on chronic renal failure (2) Pancreatitis (3) History of nephrectomy, right Assessment: cancer (4) Hypertension (5) BPH (benign prostatic hyperplasia) Assessment acute on chronic renal failure- GI Pathology: pancreatic cyst and Pancreatitis HyperUrecemia HTN BPH Right renal cancer, status post nephrectomy. Plan Hydrate- avoid nephrotoxics monitor renal parameters and Uric acid hold ARBs and add flomax watch BP Subjective ROS Limited/Unobtainable: No Constitutional: Reports: malaise, weakness Objective Objective Last 24 Hour Vital Signs Date Time Temp Pulse Resp B/P (MAP) Pulse Ox O2 Delivery O2 Flow Rate FiO2 05/10/19 09:00 Room Air 05/10/19 09:00 116/62 05/10/19 08:00 97.6 50 18 116/62 (80) 97 05/10/19 04:00 99.1 108 16 123/62 (82) 96 05/10/19 00:00 97.7 57 18 96/56 (69) 95 05/09/19 21:00 Room Air 05/09/19 20:00 98.3 71 16 98/57 (71) 97 05/09/19 16:00 97.6 64 19 114/63 (80) 96 05/09/19 12:00 97.7 75 18 100/55 (70) 5 Intake and Output 05/09/19 05/10/19 19:00 07:00 Intake Total 300 ml 910.0 ml Balance 300 ml 910.0 ml Intake Oral 300 ml IV Total 910.0 ml # Voids 2 3 # Bowel Movements 2 Current Medications Medications (Trade) Dose Ordered Sig/Herminio Route PRN Reason Start Time Stop Time Status Last Admin Dose Admin Acetaminophen (Tylenol) 650 mg Q4H PRN ORAL Mild Pain/Temp > 100.5 05/08/19 15:30 06/07/19 15:29 05/09/19 18:10 Dextrose (Dextrose 50%) 25 ml Q30M PRN IV Hypoglycemia 05/08/19 18:30 06/07/19 18:29 Dextrose (Dextrose 50%) 50 ml Q30M PRN IV Hypoglycemia 05/08/19 18:30 06/07/19 18:29 Dextrose/Sodium Chloride 1,000 ml @ 100 mls/hr Q10H IV 05/08/19 15:30 06/07/19 15:29 05/10/19 07:12 Diphenhydramine HCl (Benadryl) 25 mg Q6H PRN ORAL Itching/Pruritis 05/08/19 18:30 06/07/19 18:29 Finasteride (Proscar) 5 mg DAILY ORAL 05/09/19 09:00 06/08/19 08:59 05/10/19 09:17 Heparin Sodium (Porcine) (Heparin 5000 units/ml) 5,000 units EVERY 12 HOURS SUBQ 05/09/19 09:00 06/08/19 08:59 05/09/19 21:12 Lorazepam (Ativan 2mg/ml 1ml) 1 mg Q4H PRN IV agitation 05/08/19 18:30 05/15/19 18:29 Metoclopramide HCl (Reglan) 10 mg Q6H PRN IVP severe nausea 05/08/19 18:30 06/07/19 18:29 05/08/19 23:08 Morphine Sulfate (Morphine Sulfate) 2 mg Q4H PRN IVP severe Pain (Pain Scale 7-10) 05/08/19 18:30 05/15/19 18:29 Nitroglycerin (Ntg) 0.4 mg Q5M X 3 DOSES PRN SL Prn Chest Pain 05/08/19 18:30 06/07/19 18:29 Ondansetron HCl (Zofran) 4 mg Q4H PRN IVP Nausea & Vomiting 05/08/19 23:00 06/07/19 22:59 Pantoprazole (Protonix) 40 mg BID ORAL 05/09/19 18:00 06/08/19 08:59 05/10/19 09:17 Piperacillin Sod/ Tazobactam Sod 3.375 gm/Sodium Chloride 110 ml @ 27.5 mls/hr EVERY 12 HOURS IVPB 05/10/19 21:00 05/13/19 16:59 UNV Tamsulosin HCl (Flomax) 0.4 mg BID ORAL 05/10/19 10:15 06/09/19 10:14 UNV Temazepam (Restoril) 15 mg HSPRN PRN ORAL Insomnia 05/08/19 18:30 05/15/19 18:29 Laboratory Tests 05/09/19 16:00: Urine Color Yellow, Urine Appearance Clear, Urine pH 7, Urine Specific [place] 1.010, Urine Protein 3+H, Urine Glucose (UA) 1+H, Urine Ketones Negative, Urine Blood 2+H, Urine Nitrite Negative, Urine Bilirubin Negative, Urine Urobilinogen Normal, Urine Leukocyte Esterase Negative, Urine RBC 2-4H, Urine WBC 0-2, Urine Squamous Epithelial Cells None, Urine Bacteria Few, Urine Eosinophils None seen , Urine Osmolality 687H, Urine Random Creatinine [Pending], Urine Random Microalbumin [Pending], Urine Random Sodium 97, Urine Microalbumin/Creatinine Ratio [Pending] 05/10/19 05:25: White Blood Count 7.0, Red Blood Count 3.79L, Hemoglobin 12.0L, Hematocrit 36.0L , Mean Corpuscular Volume 95, Mean Corpuscular Hemoglobin 31.5H, Mean Corpuscular Hemoglobin Concent 33.2, Red Cell Distribution Width 13.2, Platelet Count 146L, Mean Platelet Volume 6.8, Neutrophils (%) (Auto) 72.1, Lymphocytes ( %) (Auto) 14.6L, Monocytes (%) (Auto) 9.8, Eosinophils (%) (Auto) 2.6, Basophils (%) (Auto) 0.8, Erythrocyte Sedimentation Rate 41H, Prothrombin Time 10.3, Prothromb Time International Ratio 1.0, Activated Partial Thromboplast Time 28, Sodium Level 140, Potassium Level 3.7, Chloride Level 107, Carbon Dioxide Level 27, Anion Gap 6, Blood Urea Nitrogen 27H, Creatinine 2.8H, Estimat Glomerular Filtration Rate 22.7, Glucose Level 101, Hemoglobin A1c 5.7, Calcium Level 8.0L, Phosphorus Level 3.4, Magnesium Level 2.0, Total Bilirubin 0.7, Aspartate Amino Transf (AST/SGOT) 11L, Alanine Aminotransferase (ALT/SGPT) 15, Alkaline Phosphatase 78, C-Reactive Protein, Quantitative 0.6, Pro-B-Type Natriuretic Peptide 122, Total Protein 5.7L, Albumin 2.4L, Globulin 3.3, Albumin /Globulin Ratio 0.7L, Triglycerides Level 67, Cholesterol Level 95, LDL Cholesterol 57, HDL Cholesterol 29L, Cholesterol/HDL Ratio 3.3, Amylase Level 177H, Lipase 202, Thyroid Stimulating Hormone (TSH) 0.963 Height (Feet): 5 Height (Inches): 5.00 Weight (Pounds): 202 General Appearance: no apparent distress Cardiovascular: other - variable Respiratory/Chest: decreased breath sounds Abdomen: distended Objective no change Gurvinder Alexis MD May 10, 2019 10:33
[2019-05-10] MEDS: Tamsulosin 0.4mg cap ORAL SCH ×2 (11:00→17:27)
[2019-05-10] MEDS ORDERED: LR 1000ml IVLG ONE (11:05)
[2019-05-10] MEDS ORDERED: LR 1000ml 1,000 ML IVLG SCH (11:07)
--- NOTE | 2019-05-10 11:14 | Anethesia Preoperative Eval ---
Anesthesia Pre-op PMH/ROS General Date of Evaluation: May 10, 2019 Time of Evaluation: 10:01 Anesthesiologist: kassandra ASA Score: ASA 4 Mallampati Score Class I : Soft palate, uvula, fauces, pillars visible Class II: Soft palate, uvula, fauces visible Class III: Soft palate, base of uvula visible Class IV: Only hard plate visible Mallampati Classification: Class II Surgeon: caleb Diagnosis: pancreatitis Surgical Procedure: eus with transmural drainage Anesthesia History: none Social History: smoking - nonsmoker Family History: no anesthesia problems Allergies: Coded Allergies: LATEX (Verified Allergy, Intermediate, 04/10/19) skin rash Uncoded Allergies: CLEAR TAPE (Allergy, Intermediate, 04/10/19) SKIN RASH Medications: see eMAR Patient NPO?: Yes Past Medical History Cardiovascular: Reports: HTN Pulmonary: Reports: other - bronchitis Gastrointestinal/Genitourinary: Reports: GERD, other - acute renal insufficiency on hd Neurologic/Psychiatric: Reports: depression/anxiety Hematology/Immune: Reports: anemia 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 Exam Physician Exam Last Vital Signs Date Time Temp Pulse Resp B/P (MAP) Pulse Ox O2 Delivery O2 Flow Rate FiO2 05/10/19 09:00 Room Air 05/10/19 09:00 116/62 05/10/19 08:00 97.6 50 18 97 Constitutional: NAD Neurologic: CN 2-12 intact Cardiovascular: other - bradycardia Respiratory: CTA Gastrointestinal: S/NT/ND Airway Exam Mallampati Score: Class II MO: limited Neck: flexible TMD: 2fb ROM: limited Anesthesia Pre-op A/P Labs Hematology Test 05/10/19 05:25 White Blood Count 7.0 K/UL (4.8-10.8) Red Blood Count 3.79 M/UL (4.70-6.10) L Hemoglobin 12.0 G/DL (14.2-18.0) L Hematocrit 36.0 % (42.0-52.0) L Mean Corpuscular Volume 95 FL (80-99) Mean Corpuscular Hemoglobin 31.5 PG (27.0-31.0) H Mean Corpuscular Hemoglobin Concent 33.2 G/DL (32.0-36.0) Red Cell Distribution Width 13.2 % (11.6-14.8) Platelet Count 146 K/UL (150-450) L Mean Platelet Volume 6.8 FL (6.5-10.1) Neutrophils (%) (Auto) 72.1 % (45.0-75.0) Lymphocytes (%) (Auto) 14.6 % (20.0-45.0) L Monocytes (%) (Auto) 9.8 % (1.0-10.0) Eosinophils (%) (Auto) 2.6 % (0.0-3.0) Basophils (%) (Auto) 0.8 % (0.0-2.0) Erythrocyte Sedimentation Rate 41 MM/HR (0-20) H Coagulation Test 05/10/19 05:25 Prothrombin Time 10.3 SEC (9.30-11.50) Prothromb Time International Ratio 1.0 (0.9-1.1) Activated Partial Thromboplast Time 28 SEC (23-33) Chemistry Test 05/10/19 05:25 Sodium Level 140 MMOL/L (136-145) Potassium Level 3.7 MMOL/L (3.5-5.1) Chloride Level 107 MMOL/L (98-107) Carbon Dioxide Level 27 MMOL/L (21-32) Anion Gap 6 mmol/L (5-15) Blood Urea Nitrogen 27 mg/dL (7-18) H Creatinine 2.8 MG/DL (0.55-1.30) H Estimat Glomerular Filtration Rate 22.7 mL/min (>60) Glucose Level 101 MG/DL (74-106) Hemoglobin A1c 5.7 % (4.3-6.0) Calcium Level 8.0 MG/DL (8.5-10.1) L Phosphorus Level 3.4 MG/DL (2.5-4.9) Magnesium Level 2.0 MG/DL (1.8-2.4) Total Bilirubin 0.7 MG/DL (0.2-1.0) Aspartate Amino Transf (AST/SGOT) 11 U/L (15-37) L Alanine Aminotransferase (ALT/SGPT) 15 U/L (12-78) Alkaline Phosphatase 78 U/L (46-116) C-Reactive Protein, Quantitative 0.6 mg/dL (0.00-0.90) Pro-B-Type Natriuretic Peptide 122 pg/mL (0-125) Total Protein 5.7 G/DL (6.4-8.2) L Albumin 2.4 G/DL (3.4-5.0) L Globulin 3.3 g/dL Albumin/Globulin Ratio 0.7 (1.0-2.7) L Triglycerides Level 67 MG/DL (30-150) Cholesterol Level 95 MG/DL (< 200) LDL Cholesterol 57 mg/dL (<100) HDL Cholesterol 29 MG/DL (40-60) L Cholesterol/HDL Ratio 3.3 (3.3-4.4) Amylase Level 177 U/L (25-115) H Lipase 202 U/L (73-393) Thyroid Stimulating Hormone (TSH) 0.963 uiU/mL (0.358-3.740) Risk Assessment & Plan Assessment: [email or web address] Plan: gen Status Change Before Surgery: No Pre-Antibiotics Drug: Yuli Easton MD May 10, 2019 11:14
[2019-05-10] MEDS ORDERED: DiphenhydrAMINE 50mg/ml Inj IVP PRN (11:15)
[2019-05-10] MEDS ORDERED: Atropine Inj 1mg/10ml Syr IV PRN (11:15)
[2019-05-10] MEDS ORDERED: Midazolam 2mg/2ml Inj IVP PRN (11:15)
[2019-05-10] MEDS ORDERED: fentaNYL 100 mcg/2 mL IV PRN (11:15)
--- NOTE | 2019-05-10 12:05 | NUR ---
CASE MANAGEMENT:REVIEW 05/10/19 SI: PANCREATITIS. PANCREATIC CYST H/O RENAL CANCER AND RT NEPHRECTOMY 97.6 50 18 116/62 97% ON RA IS: IV ZOSYN Q12 IVF@100/HR FLOMAX PO BID PROSCAR PO QD HEPARIN SQ Q12 : MED/SURG STATUS 3 EAST DCP: RETURN HOME PLAN: TO SURGERY FOR PLACEMENT OF DRAIN OF PANCREATIC CYST
--- NOTE | 2019-05-10 12:17 | Immediate Post-Op Evaluation ---
Immediate Post-Op Evalulation Immediate Post-Op Evalulation Procedure: eus w/ attempted tramural drainage Date of Evaluation: May 10, 2019 Time of Evaluation: 12:17 IV Fluids: 250 ml lr, 500ml 0.9ns Blood Products: none Estimated Blood Loss: negligible Blood Pressure Systolic: 157 Blood Pressure Diastolic: 84 Pulse Rate: 83 Respiratory Rate: 18 O2 Sat by Pulse Oximetry: 97 Temperature (Fahrenheit): 97.5 Pain Score (1-10): 0 Nausea: No Vomiting: No Complications none Patient Status: awake, reacts, patent, extubated Hydration Status: adequate Drug: Yuli Easton MD May 10, 2019 12:17
--- NOTE | 2019-05-10 12:19 | 48 Hour Post Anesthesia Eval ---
Post Anesthesia Evaluation Procedure: eus w/ attempted tramural drainage Date of Evaluation: May 10, 2019 Time of Evaluation: 12:19 Blood Pressure Systolic: 138 0: 69 Pulse Rate: 69 Respiratory Rate: 18 Temperature (Fahrenheit): 97.5 O2 Sat by Pulse Oximetry: 94 Airway: patent Nausea: No Vomiting: No Pain Intensity: 0 Hydration Status: adequate Cardiopulmonary Status: stable Mental Status/LOC: patient returned to baseline Post-Anesthesia Complications: none Follow-up care needed: N/A Yuli De León MD May 10, 2019 12:19
--- NOTE | 2019-05-10 12:19 | Endoscopy Procedure Note ---
Endoscopy Procedure Note General Indication for Procedure: pancreatic psudocyst Procedures Performed: other - EUS Operative Findings/Diagnosis: unsuccessful drainge dur to bleeding Specimen: none Pt Tolerated Procedure Well: Yes Estimated Blood Loss: none Anesthesia Anesthesiologist: vinay Anesthesia: general Inserted Devices Implant(s) used?: No GI Core Measures 50 yrs or older w/o bx or poly: Not Applicable 10yrs. F/U recommended: Not Applicable Nam Merchant MD May 10, 2019 12:19
--- NOTE | 2019-05-10 12:45 | NUR ---
HAND-OFF: Report given to Shweta PATTON.
--- NOTE | 2019-05-10 12:50 | NUR ---
nurse notes received patient from PACU via [place] s/p EUS w/ attempted tramural drainage, with on going IVF patent and infusing well, Patiel still groggy, v/s stable and afebrile on NPO status, will continue to monitor patient condition grey agarwal
[2019-05-10] MEDS ORDERED: D5 1/2NS 1000ml IV ONE (14:54)
--- NOTE | 2019-05-10 15:09 | NUR ---
NURSE NOTES: Spoke to Debbie HSPT TUTOR regarding diet order. Per Debbie HSPT TUTOR: Keep patient on IV fluid and NPO. Order noted and carried out.
--- NOTE | 2019-05-10 17:25 | NUR ---
nurse notes per relief charge nurse Asad bearden to give po meds to patient, grey agarwal
--- NOTE | 2019-05-10 19:02 | Internal Med Progress Note ---
Subjective Physician Name Mina Solorzano Attending Physician Mina Solorzano MD Current Medications Medications (Trade) Dose Ordered Sig/Herminio Route PRN Reason Start Time Stop Time Status Last Admin Dose Admin Acetaminophen (Tylenol) 650 mg Q4H PRN ORAL Mild Pain/Temp > 100.5 05/08/19 15:30 06/07/19 15:29 05/09/19 18:10 Dextrose (Dextrose 50%) 25 ml Q30M PRN IV Hypoglycemia 05/08/19 18:30 06/07/19 18:29 Dextrose (Dextrose 50%) 50 ml Q30M PRN IV Hypoglycemia 05/08/19 18:30 06/07/19 18:29 Dextrose/Sodium Chloride 1,000 ml @ 100 mls/hr Q10H IV 05/08/19 15:30 06/07/19 15:29 05/10/19 17:28 Diphenhydramine HCl (Benadryl) 25 mg Q6H PRN ORAL Itching/Pruritis 05/08/19 18:30 06/07/19 18:29 Finasteride (Proscar) 5 mg DAILY ORAL 05/09/19 09:00 06/08/19 08:59 05/10/19 09:17 Heparin Sodium (Porcine) (Heparin 5000 units/ml) 5,000 units EVERY 12 HOURS SUBQ 05/09/19 09:00 06/08/19 08:59 05/09/19 21:12 Lorazepam (Ativan 2mg/ml 1ml) 1 mg Q4H PRN IV agitation 05/08/19 18:30 05/15/19 18:29 Metoclopramide HCl (Reglan) 10 mg Q6H PRN IVP severe nausea 05/08/19 18:30 06/07/19 18:29 05/08/19 23:08 Morphine Sulfate (Morphine Sulfate) 2 mg Q4H PRN IVP severe Pain (Pain Scale 7-10) 05/08/19 18:30 05/15/19 18:29 Nitroglycerin (Ntg) 0.4 mg Q5M X 3 DOSES PRN SL Prn Chest Pain 05/08/19 18:30 06/07/19 18:29 Ondansetron HCl (Zofran) 4 mg Q4H PRN IVP Nausea & Vomiting 05/08/19 23:00 06/07/19 22:59 Pantoprazole (Protonix) 40 mg BID ORAL 05/09/19 18:00 06/08/19 08:59 05/10/19 17:27 Piperacillin Sod/ Tazobactam Sod 3.375 gm/Sodium Chloride 110 ml @ 27.5 mls/hr EVERY 12 HOURS IVPB 05/10/19 21:00 05/13/19 16:59 Tamsulosin HCl (Flomax) 0.4 mg BID ORAL 05/10/19 11:00 06/09/19 10:59 05/10/19 17:27 Temazepam (Restoril) 15 mg HSPRN PRN ORAL Insomnia 05/08/19 18:30 05/15/19 18:29 Allergies: Coded Allergies: LATEX (Verified Allergy, Intermediate, 04/10/19) skin rash Uncoded Allergies: CLEAR TAPE (Allergy, Intermediate, 04/10/19) SKIN RASH Subjective Awake, alert, responsive, reported decreased abdominal pain, no nausea or vomiting. Objective Last Vital Signs Date Time Temp Pulse Resp B/P (MAP) Pulse Ox O2 Delivery O2 Flow Rate FiO2 05/10/19 15:58 97.9 59 18 118/67 (84) 97 05/10/19 13:00 Room Air 05/10/19 12:35 3 Laboratory Tests Test 05/10/19 05:25 White Blood Count 7.0 K/UL (4.8-10.8) Red Blood Count 3.79 M/UL (4.70-6.10) L Hemoglobin 12.0 G/DL (14.2-18.0) L Hematocrit 36.0 % (42.0-52.0) L Mean Corpuscular Volume 95 FL (80-99) Mean Corpuscular Hemoglobin 31.5 PG (27.0-31.0) H Mean Corpuscular Hemoglobin Concent 33.2 G/DL (32.0-36.0) Red Cell Distribution Width 13.2 % (11.6-14.8) Platelet Count 146 K/UL (150-450) L Mean Platelet Volume 6.8 FL (6.5-10.1) Neutrophils (%) (Auto) 72.1 % (45.0-75.0) Lymphocytes (%) (Auto) 14.6 % (20.0-45.0) L Monocytes (%) (Auto) 9.8 % (1.0-10.0) Eosinophils (%) (Auto) 2.6 % (0.0-3.0) Basophils (%) (Auto) 0.8 % (0.0-2.0) Erythrocyte Sedimentation Rate 41 MM/HR (0-20) H Prothrombin Time 10.3 SEC (9.30-11.50) Prothromb Time International Ratio 1.0 (0.9-1.1) Activated Partial Thromboplast Time 28 SEC (23-33) Sodium Level 140 MMOL/L (136-145) Potassium Level 3.7 MMOL/L (3.5-5.1) Chloride Level 107 MMOL/L (98-107) Carbon Dioxide Level 27 MMOL/L (21-32) Anion Gap 6 mmol/L (5-15) Blood Urea Nitrogen 27 mg/dL (7-18) H Creatinine 2.8 MG/DL (0.55-1.30) H Estimat Glomerular Filtration Rate 22.7 mL/min (>60) Glucose Level 101 MG/DL (74-106) Hemoglobin A1c 5.7 % (4.3-6.0) Calcium Level 8.0 MG/DL (8.5-10.1) L Phosphorus Level 3.4 MG/DL (2.5-4.9) Magnesium Level 2.0 MG/DL (1.8-2.4) Total Bilirubin 0.7 MG/DL (0.2-1.0) Aspartate Amino Transf (AST/SGOT) 11 U/L (15-37) L Alanine Aminotransferase (ALT/SGPT) 15 U/L (12-78) Alkaline Phosphatase 78 U/L (46-116) C-Reactive Protein, Quantitative 0.6 mg/dL (0.00-0.90) Pro-B-Type Natriuretic Peptide 122 pg/mL (0-125) Total Protein 5.7 G/DL (6.4-8.2) L Albumin 2.4 G/DL (3.4-5.0) L Globulin 3.3 g/dL Albumin/Globulin Ratio 0.7 (1.0-2.7) L Triglycerides Level 67 MG/DL (30-150) Cholesterol Level 95 MG/DL (< 200) LDL Cholesterol 57 mg/dL (<100) HDL Cholesterol 29 MG/DL (40-60) L Cholesterol/HDL Ratio 3.3 (3.3-4.4) Amylase Level 177 U/L (25-115) H Lipase 202 U/L (73-393) Thyroid Stimulating Hormone (TSH) 0.963 uiU/mL (0.358-3.740) Intake and Output 05/09/19 05/10/19 19:00 07:00 Intake Total 300 ml 910.0 ml Balance 300 ml 910.0 ml Intake Oral 300 ml IV Total 910.0 ml # Voids 2 3 # Bowel Movements 2 Objective General: No acute distress, awake and alert HEENT: NCAT, sclera anicteric, PERRL, EOMI. Neck: Supple, no significant jugular venous distention, Lungs: Good inspiratory effort, clear to auscultation bilaterally, no Wheeze or Rales. Heart: Regular rate and rhythm, normal S1/S2, no murmur. Abdomen: soft, less tender, nondistended. Normoactive bowel sounds, obesity. / Rectal: Refused and deferred. Extremities: No Cyanosis , clubbing or edema. Neuro: A&O x 3, Able to move all extremities Skin: warm, no rashes or lesions Psych: Normal mood and affect Assessment/Plan Assessment/Plan Acute on chronic renal failure- pancreatic pseudocyst and Pancreatitis Hyperuricemia HTN BPH Right renal cancer, status post nephrectomy. Obesity, Plan: Continue n.p.o. IV hydration Follow-up with the GI recommendation DVT prophylaxis with SCD CODE STATUS is full code Will start diet as tolerated. Mina Solorzano MD May 10, 2019 19:02
--- NOTE | 2019-05-10 19:41 | NUR ---
HAND-OFF: Report given to POOJA Das, Patient stable pooja agarwal.
[2019-05-10] MEDS: Piperacillin/Tazobactam 3.375 GM in NS 110 ML IVPB SCH (21:20)
[2019-05-11] VITALS: BP 118/67
--- NOTE | 2019-05-11 02:23 | NUR ---
NURSES NOTE: Met patient in bed, alert and oriented x4. All questions answered appropriately. No signs or symptoms of distress noted. Pt denies pain. Breathing is even and unlabored. All due meds given; however, 2100 Heparin dose held due to abnormal platelet count. Patient is NPO status. Bed at lowest level, call light within reach. Pt will continue to be monitored.
[2019-05-11] MEDS: D5 1/2NS 1,000 ML IV SCH ×2 (03:30→07:38)
[2019-05-11 04:00] VITALS: BP 104/62
[2019-05-11 05:15] LABS: BASOPHILS % (AUTO) 1.1 % (0.0-2.0); HEMATOCRIT 34.1 % (42.0-52.0); HEMOGLOBIN 11.3 G/DL (14.2-18.0); MEAN CORPUSCULAR VOLUME 94 FL (80-99); MONOCYTES % (AUTO) 9.8 % (1.0-10.0); NEUTROPHILS % (AUTO) 76.1 % (45.0-75.0); PLATELET COUNT 127 K/UL (150-450); RED BLOOD COUNT 3.63 M/UL (4.70-6.10); RED CELL DISTRIBUTION WIDTH 13.3 % (11.6-14.8)
[2019-05-11 05:41] LABS: ALANINE AMINOTRANSFERASE 17 U/L (12-78); ALBUMIN 2.4 G/DL (3.4-5.0); ALBUMIN/GLOBULIN RATIO 0.7 (1.0-2.7); ALKALINE PHOSPHATASE 73 U/L (46-116); ANION GAP 5 mmol/L (5-15); ASPARTATE AMINO TRANSFERASE 12 U/L (15-37); BILIRUBIN,TOTAL 0.8 MG/DL (0.2-1.0); BLOOD UREA NITROGEN 26 mg/dL (7-18); CALCIUM 8.1 MG/DL (8.5-10.1); CARBON DIOXIDE 27 MMOL/L (21-32); CHLORIDE 109 MMOL/L (98-107); CREATININE 2.5 MG/DL (0.55-1.30); PHOSPHORUS 2.7 MG/DL (2.5-4.9); POTASSIUM 4.7 MMOL/L (3.5-5.1); SODIUM 141 MMOL/L (136-145)
[2019-05-11 08:00] VITALS: BP 143/74
--- NOTE | 2019-05-11 08:00 | NUR ---
NURSE NOTES: Received report from Thiago PATTON, pt a/a/o x4 laying in bed with no signs of distress or other issues at this time. IV on the right wrist gauge #20 heplock, and left FA gauge#22 D51/4NS@100ml/hr. NPO x meds. call light within reach, bed in lowest position. side rales up. I will f/u as needed.
--- NOTE | 2019-05-11 08:03 | NUR ---
HAND-OFF: Report given to POOJA Chavira.
[2019-05-11] MEDS ORDERED: D5 1/2NS 1000ml IV ONE (08:32)
[2019-05-11] MEDS: Heparin 5000 units/ml inj SUBQ SCH ×2 (09:00→20:21)
[2019-05-11] MEDS: Piperacillin/Tazobactam 3.375 GM in NS 110 ML IVPB SCH ×2 (09:04→20:23)
[2019-05-11] MEDS: Tamsulosin 0.4mg cap ORAL SCH ×2 (09:04→17:35)
--- NOTE | 2019-05-11 09:36 | Nephrology Progress Note ---
Assessment/Plan Problem List: (1) Acute on chronic renal failure (2) Pancreatitis (3) History of nephrectomy, right Assessment: cancer (4) Hypertension (5) BPH (benign prostatic hyperplasia) Assessment acute on chronic renal failure- GI Pathology: pancreatic cyst and Pancreatitis HyperUrecemia HTN BPH Right renal cancer, status post nephrectomy. Plan Cr lower today continue Hydrate- avoid nephrotoxics monitor renal parameters and Uric acid hold ARBs and add flomax watch BP BIGG: 7 cm cyst in the splenic hilum possibly arising from the pancreatic tail. Consider evaluation with contrast-enhanced CT. Cholelithiasis. Left renal cyst Right nephrectomy Subjective ROS Limited/Unobtainable: No Constitutional: Reports: malaise Objective Objective Last 24 Hour Vital Signs Date Time Temp Pulse Resp B/P (MAP) Pulse Ox O2 Delivery O2 Flow Rate FiO2 05/11/19 08:00 98.3 63 19 143/74 (97) 100 63 05/11/19 04:00 97.5 79 18 104/62 (76) 99 79 05/11/19 00:00 97.3 67 18 118/67 (84) 96 67 05/10/19 21:00 Room Air 05/10/19 20:00 97.6 68 18 120/67 (84) 95 68 05/10/19 15:58 97.9 59 18 118/67 (84) 97 05/10/19 13:00 Room Air 05/10/19 13:00 98.2 61 17 120/64 (82) 97 05/10/19 12:35 97.1 64 19 118/62 98 Nasal Cannula 3 05/10/19 12:25 67 16 129/64 98 Nasal Cannula 3 05/10/19 12:19 69 18 94 05/10/19 12:17 83 18 97 05/10/19 12:15 80 20 138/69 97 Nasal Cannula 3 05/10/19 12:10 74 17 149/78 97 Nasal Cannula 3 05/10/19 12:05 97.5 81 19 157/84 97 Nasal Cannula 3 Intake and Output 05/10/19 05/11/19 18:59 06:59 Intake Total 950 ml 1110 ml Balance 950 ml 1110 ml Intake Oral 20 ml IV Total 930 ml 1110 ml # Voids 1 2 Laboratory Tests 05/11/19 04:40: White Blood Count 7.0, Red Blood Count 3.63L, Hemoglobin 11.3L, Hematocrit 34.1L , Mean Corpuscular Volume 94, Mean Corpuscular Hemoglobin 31.2H, Mean Corpuscular Hemoglobin Concent 33.1, Red Cell Distribution Width 13.3, Platelet Count 127L, Mean Platelet Volume 6.4L, Neutrophils (%) (Auto) 76.1H, Lymphocytes (%) (Auto) 11.0L, Monocytes (%) (Auto) 9.8, Eosinophils (%) (Auto) 2.0, Basophils (%) (Auto) 1.1, Sodium Level 141, Potassium Level 4.7, Chloride Level 109H, Carbon Dioxide Level 27, Anion Gap 5, Blood Urea Nitrogen 26H, Creatinine 2.5H, Estimat Glomerular Filtration Rate 25.9, Glucose Level 94, Calcium Level 8.1L, Phosphorus Level 2.7, Magnesium Level 2.0, Total Bilirubin 0.8, Aspartate Amino Transf (AST/SGOT) 12L, Alanine Aminotransferase (ALT/SGPT) 17, Alkaline Phosphatase 73, C-Reactive Protein, Quantitative 3.2H, Pro-B-Type Natriuretic Peptide 374H, Total Protein 5.7L, Albumin 2.4L, Globulin 3.3, Albumin/Globulin Ratio 0.7L Height (Feet): 5 Height (Inches): 5.00 Weight (Pounds): 202 General Appearance: no apparent distress Abdomen: distended Objective no change Gurvinder Alexis MD May 11, 2019 09:36
[2019-05-11 12:00] VITALS: BP 122/64
--- NOTE | 2019-05-11 13:56 | Internal Med Progress Note ---
Subjective Date of Service: May 11, 2019 Physician Name Mark Martinez Attending Physician Mina Solorzano MD Current Medications Medications (Trade) Dose Ordered Sig/Herminio Route PRN Reason Start Time Stop Time Status Last Admin Dose Admin Acetaminophen (Tylenol) 650 mg Q4H PRN ORAL Mild Pain/Temp > 100.5 05/08/19 15:30 06/07/19 15:29 05/09/19 18:10 Dextrose (Dextrose 50%) 25 ml Q30M PRN IV Hypoglycemia 05/08/19 18:30 06/07/19 18:29 Dextrose (Dextrose 50%) 50 ml Q30M PRN IV Hypoglycemia 05/08/19 18:30 06/07/19 18:29 Dextrose/Sodium Chloride 1,000 ml @ 100 mls/hr Q10H IV 05/08/19 15:30 06/07/19 15:29 05/11/19 07:38 Diphenhydramine HCl (Benadryl) 25 mg Q6H PRN ORAL Itching/Pruritis 05/08/19 18:30 06/07/19 18:29 Finasteride (Proscar) 5 mg DAILY ORAL 05/09/19 09:00 06/08/19 08:59 05/11/19 09:04 Heparin Sodium (Porcine) (Heparin 5000 units/ml) 5,000 units EVERY 12 HOURS SUBQ 05/09/19 09:00 06/08/19 08:59 05/09/19 21:12 Lorazepam (Ativan 2mg/ml 1ml) 1 mg Q4H PRN IV agitation 05/08/19 18:30 05/15/19 18:29 Metoclopramide HCl (Reglan) 10 mg Q6H PRN IVP severe nausea 05/08/19 18:30 06/07/19 18:29 05/08/19 23:08 Morphine Sulfate (Morphine Sulfate) 2 mg Q4H PRN IVP severe Pain (Pain Scale 7-10) 05/08/19 18:30 05/15/19 18:29 Nitroglycerin (Ntg) 0.4 mg Q5M X 3 DOSES PRN SL Prn Chest Pain 05/08/19 18:30 06/07/19 18:29 Ondansetron HCl (Zofran) 4 mg Q4H PRN IVP Nausea & Vomiting 05/08/19 23:00 06/07/19 22:59 Pantoprazole (Protonix) 40 mg BID ORAL 05/09/19 18:00 06/08/19 08:59 05/11/19 09:04 Piperacillin Sod/ Tazobactam Sod 3.375 gm/Sodium Chloride 110 ml @ 27.5 mls/hr EVERY 12 HOURS IVPB 05/10/19 21:00 05/13/19 16:59 05/11/19 09:04 Tamsulosin HCl (Flomax) 0.4 mg BID ORAL 05/10/19 11:00 06/09/19 10:59 05/11/19 09:04 Temazepam (Restoril) 15 mg HSPRN PRN ORAL Insomnia 05/08/19 18:30 05/15/19 18:29 Allergies: Coded Allergies: LATEX (Verified Allergy, Intermediate, 04/10/19) skin rash Uncoded Allergies: CLEAR TAPE (Allergy, Intermediate, 04/10/19) SKIN RASH ROS Limited/Unobtainable: No Constitutional: Reports: no symptoms HEENT: Reports: no symptoms Cardiovascular: Reports: no symptoms Respiratory: Reports: no symptoms Gastrointestinal/Abdominal: Reports: abdominal pain Genitourinary: Reports: no symptoms Neurologic/Psychiatric: Reports: no symptoms Subjective 68 YO M admitted with abdominal pain. Now pancreatic cyst. Cover for Int Med- DR Solorzano. S/P failed endoscopic ultrasound 05/10/19 Objective Last Vital Signs Date Time Temp Pulse Resp B/P (MAP) Pulse Ox O2 Delivery O2 Flow Rate FiO2 05/11/19 12:00 98.7 72 18 122/64 (83) 100 72 05/11/19 09:00 Room Air 05/10/19 12:35 3 Laboratory Tests Test 05/11/19 04:40 White Blood Count 7.0 K/UL (4.8-10.8) Red Blood Count 3.63 M/UL (4.70-6.10) L Hemoglobin 11.3 G/DL (14.2-18.0) L Hematocrit 34.1 % (42.0-52.0) L Mean Corpuscular Volume 94 FL (80-99) Mean Corpuscular Hemoglobin 31.2 PG (27.0-31.0) H Mean Corpuscular Hemoglobin Concent 33.1 G/DL (32.0-36.0) Red Cell Distribution Width 13.3 % (11.6-14.8) Platelet Count 127 K/UL (150-450) L Mean Platelet Volume 6.4 FL (6.5-10.1) L Neutrophils (%) (Auto) 76.1 % (45.0-75.0) H Lymphocytes (%) (Auto) 11.0 % (20.0-45.0) L Monocytes (%) (Auto) 9.8 % (1.0-10.0) Eosinophils (%) (Auto) 2.0 % (0.0-3.0) Basophils (%) (Auto) 1.1 % (0.0-2.0) Sodium Level 141 MMOL/L (136-145) Potassium Level 4.7 MMOL/L (3.5-5.1) Chloride Level 109 MMOL/L (98-107) H Carbon Dioxide Level 27 MMOL/L (21-32) Anion Gap 5 mmol/L (5-15) Blood Urea Nitrogen 26 mg/dL (7-18) H Creatinine 2.5 MG/DL (0.55-1.30) H Estimat Glomerular Filtration Rate 25.9 mL/min (>60) Glucose Level 94 MG/DL (74-106) Calcium Level 8.1 MG/DL (8.5-10.1) L Phosphorus Level 2.7 MG/DL (2.5-4.9) Magnesium Level 2.0 MG/DL (1.8-2.4) Total Bilirubin 0.8 MG/DL (0.2-1.0) Aspartate Amino Transf (AST/SGOT) 12 U/L (15-37) L Alanine Aminotransferase (ALT/SGPT) 17 U/L (12-78) Alkaline Phosphatase 73 U/L (46-116) C-Reactive Protein, Quantitative 3.2 mg/dL (0.00-0.90) H Pro-B-Type Natriuretic Peptide 374 pg/mL (0-125) H Total Protein 5.7 G/DL (6.4-8.2) L Albumin 2.4 G/DL (3.4-5.0) L Globulin 3.3 g/dL Albumin/Globulin Ratio 0.7 (1.0-2.7) L Intake and Output 9/20/19 9/21/19 19:00 07:00 Intake Total 1050 ml 1010 ml Balance 1050 ml 1010 ml Intake Oral 20 ml IV Total 1030 ml 1010 ml # Voids 1 2 Objective PHYSICAL EXAMINATION: GENERAL: The patient is a well-developed, well-nourished white male, in no apparent distress. HEENT: Eyes, pupils are equal and responsive to light and accommodation. Extraocular movements are intact. NECK: Supple without lymphadenopathy. CHEST: Lungs are clear to auscultation bilaterally without wheezes or rales. CARDIOVASCULAR: Regular rhythm and rate. S1, S2 normal without murmurs, rubs, or gallops. ABDOMEN: Soft, distended with decreased bowel sounds. Tenderness to palpation left upper quadrant. No rebound or guarding. EXTREMITIES: Negative for clubbing, cyanosis, or edema. RECTAL/GENITAL: Not performed. NEUROLOGIC: Cranial nerves II through XII are grossly intact without focal deficits. Motor strength is 5/5 bilaterally. Deep tendon reflexes are 2+ plantar. Assessment/Plan Assessment/Plan ASSESSMENT: This is a 68-year-old white male. 1. Pancreatitis. 2. Pancreatic cyst. 3. Hypertension. 4. Benign prostatic hypertrophy. 5. History of right renal cancer. TREATMENT: 1. Pancreatitis and pancreatic cyst. A Gastroenterology consultation has been obtained with Dr. Nam Merchant. S/P failed endoscopic placement of drain of pancreatic cyst. We will follow recommendations of Gastroenterology. 2. Renal failure. The patient has a history of right nephrectomy secondary to renal cancer. A Nephrology consultation has been obtained with Dr. Alexis. 3. Hypertension. Continue losartan as above. 4. Benign prostatic hypertrophy. Continue Proscar as above. Mark Martinez MD May 11, 2019 13:56
[2019-05-11 16:00] VITALS: BP 118/66
[2019-05-11] MEDS ORDERED: fentaNYL 100 mcg/2 mL IV ONE (17:33)
[2019-05-11] MEDS ORDERED: Midazolam 2mg/2ml Inj ONE (17:33)
--- NOTE | 2019-05-11 20:04 | General Progress Note ---
Assessment/Plan Assessment/Plan: Assessment - pancreatic pseudocyst - s/p EUS - Azotemia - Mild anemia Recommendations - trial of clears - follow symptoms and exam Subjective Allergies: Coded Allergies: LATEX (Verified Allergy, Intermediate, 04/10/19) skin rash Uncoded Allergies: CLEAR TAPE (Allergy, Intermediate, 04/10/19) SKIN RASH Subjective Feels better pain down to 2/10 hungry , wants to eat Objective Last 24 Hour Vital Signs Date Time Temp Pulse Resp B/P (MAP) Pulse Ox O2 Delivery O2 Flow Rate FiO2 05/11/19 16:00 98.3 60 19 118/66 (83) 100 60 05/11/19 12:00 98.7 72 18 122/64 (83) 100 72 05/11/19 09:00 Room Air 05/11/19 08:00 98.3 63 19 143/74 (97) 100 63 05/11/19 04:00 97.5 79 18 104/62 (76) 99 79 05/11/19 00:00 97.3 67 18 118/67 (84) 96 67 05/10/19 21:00 Room Air Intake and Output 05/10/19 05/11/19 19:00 07:00 Intake Total 1050 ml 1010 ml Balance 1050 ml 1010 ml Intake Oral 20 ml IV Total 1030 ml 1010 ml # Voids 1 2 Laboratory Tests 05/11/19 04:40: White Blood Count 7.0, Red Blood Count 3.63L, Hemoglobin 11.3L, Hematocrit 34.1L , Mean Corpuscular Volume 94, Mean Corpuscular Hemoglobin 31.2H, Mean Corpuscular Hemoglobin Concent 33.1, Red Cell Distribution Width 13.3, Platelet Count 127L, Mean Platelet Volume 6.4L, Neutrophils (%) (Auto) 76.1H, Lymphocytes (%) (Auto) 11.0L, Monocytes (%) (Auto) 9.8, Eosinophils (%) (Auto) 2.0, Basophils (%) (Auto) 1.1, Sodium Level 141, Potassium Level 4.7, Chloride Level 109H, Carbon Dioxide Level 27, Anion Gap 5, Blood Urea Nitrogen 26H, Creatinine 2.5H, Estimat Glomerular Filtration Rate 25.9, Glucose Level 94, Calcium Level 8.1L, Phosphorus Level 2.7, Magnesium Level 2.0, Total Bilirubin 0.8, Aspartate Amino Transf (AST/SGOT) 12L, Alanine Aminotransferase (ALT/SGPT) 17, Alkaline Phosphatase 73, C-Reactive Protein, Quantitative 3.2H, Pro-B-Type Natriuretic Peptide 374H, Total Protein 5.7L, Albumin 2.4L, Globulin 3.3, Albumin/Globulin Ratio 0.7L Height (Feet): 5 Height (Inches): 5.00 Weight (Pounds): 202 Objective WDWN NCAT supple CTA RR abd soft ND NT no edema non focal Itzel Rojo MD May 11, 2019 20:04
[2019-05-11 21:00] VITALS: BP 125/72
[2019-05-12 00:21] VITALS: BP 118/65
[2019-05-12 04:00] VITALS: BP 142/77
[2019-05-12] MEDS: D5 1/2NS 1,000 ML IV SCH ×3 (04:01→19:43)
--- NOTE | 2019-05-12 04:30 | NUR ---
NURSES NOTE: Met patient in room, awake and alert x4. Answers all questions appropriately. No s/s of distress. All due meds given that were appropriate. No complaints of pain. Bed at lowest level. Call light within reach. Will continue to monitor patient.
[2019-05-12 06:43] LABS: BASOPHILS % (AUTO) 1.5 % (0.0-2.0); EOSINOPHILS % (AUTO) 4.7 % (0.0-3.0); HEMATOCRIT 34.5 % (42.0-52.0); HEMOGLOBIN 11.4 G/DL (14.2-18.0); LYMPHOCYTES % (AUTO) 13.7 % (20.0-45.0); MEAN CORPUSCULAR VOLUME 94 FL (80-99); MONOCYTES % (AUTO) 10.7 % (1.0-10.0); NEUTROPHILS % (AUTO) 69.3 % (45.0-75.0); PLATELET COUNT 114 K/UL (150-450); RED BLOOD COUNT 3.66 M/UL (4.70-6.10); RED CELL DISTRIBUTION WIDTH 12.8 % (11.6-14.8); WHITE BLOOD COUNT 5.2 K/UL (4.8-10.8)
[2019-05-12 07:30] LABS: BLOOD UREA NITROGEN 19 mg/dL (7-18); CREATININE 2.4 MG/DL (0.55-1.30)
--- NOTE | 2019-05-12 07:34 | NUR ---
HAND-OFF: Report given to POOJA Ríos.
--- NOTE | 2019-05-12 07:49 | NUR ---
NURSE NOTES: received report from POOJA Chavira. patient in bed. alert. oriented. verbally responsive. no respiratory distress note. mild discomfort on abd area 10 when press down with hand. IV on R wirst 20 hep lock. LFA 22g running d51/2ns @100/hr. ambulatory. on clear liquid diet. bed in the lowest position and locked. call light within reach. will continue to provide plan of care.
[2019-05-12 08:00] VITALS: BP 126/72
[2019-05-12 08:15] LABS: ANION GAP 15 mmol/L (5-15); CARBON DIOXIDE 18 MMOL/L (21-32); CHLORIDE 110 MMOL/L (98-107); POTASSIUM 4.3 MMOL/L (3.5-5.1); SODIUM 143 MMOL/L (136-145)
[2019-05-12] MEDS: Piperacillin/Tazobactam 3.375 GM in NS 110 ML IVPB SCH ×2 (08:19→20:57)
[2019-05-12] MEDS: Tamsulosin 0.4mg cap ORAL SCH ×2 (08:19→17:09)
--- NOTE | 2019-05-12 08:30 | NUR ---
NURSE NOTES: patient seen by Tiarra Cuevas and meir diet to cardiac diet. order noted and carried out,
[2019-05-12] MEDS: Heparin 5000 units/ml inj SUBQ SCH ×2 (08:54→20:57)
--- NOTE | 2019-05-12 08:54 | NUR ---
NURSE NOTES: RN held heparin. plt [id number]
--- NOTE | 2019-05-12 10:50 | NUR ---
NURSE NOTES Patient seen by DR. Alexis. pharmacy asked zosyn will be tomorrow if MD wants continue medication. RN notified dr. alexis and MD changed frequency of medication d/t patient's CR level is high. The medication ordered by Dr. Ellis originally. RN put an other nursing order for F/U with Dr. ellis.
--- NOTE | 2019-05-12 11:08 | Nephrology Progress Note ---
Assessment/Plan Problem List: (1) Acute on chronic renal failure (2) Pancreatitis (3) History of nephrectomy, right Assessment: cancer (4) Hypertension (5) BPH (benign prostatic hyperplasia) Assessment acute on chronic renal failure- GI Pathology: pancreatic cyst and Pancreatitis HyperUrecemia HTN BPH Right renal cancer, status post nephrectomy. Plan Cr lower today continue Hydrate- avoid nephrotoxics monitor renal parameters and Uric acid hold ARBs and add flomax watch BP BIGG: 7 cm cyst in the splenic hilum possibly arising from the pancreatic tail. Consider evaluation with contrast-enhanced CT. Cholelithiasis. Left renal cyst Right nephrectomy Subjective ROS Limited/Unobtainable: No Constitutional: Reports: weakness Objective Objective Last 24 Hour Vital Signs Date Time Temp Pulse Resp B/P (MAP) Pulse Ox O2 Delivery O2 Flow Rate FiO2 05/12/19 09:00 Room Air 05/12/19 08:00 97.4 63 20 126/72 (90) 98 63 05/12/19 04:00 97.4 54 18 142/77 (98) 97 54 05/12/19 00:21 97.9 70 18 118/65 (82) 95 60 05/11/19 21:00 Room Air 05/11/19 21:00 97.9 70 17 125/72 (89) 96 70 05/11/19 16:00 98.3 60 19 118/66 (83) 100 60 05/11/19 12:00 98.7 72 18 122/64 (83) 100 72 Intake and Output 05/11/19 05/12/19 18:59 06:59 Intake Total 240 ml Balance 240 ml Intake Oral 240 ml # Voids 4 8 Laboratory Tests 05/12/19 04:45: White Blood Count 5.2, Red Blood Count 3.66L, Hemoglobin 11.4L, Hematocrit 34.5L , Mean Corpuscular Volume 94, Mean Corpuscular Hemoglobin 31.1H, Mean Corpuscular Hemoglobin Concent 33.0, Red Cell Distribution Width 12.8, Platelet Count 114L, Mean Platelet Volume 6.5, Neutrophils (%) (Auto) 69.3, Lymphocytes ( %) (Auto) 13.7L, Monocytes (%) (Auto) 10.7H, Eosinophils (%) (Auto) 4.7H, Basophils (%) (Auto) 1.5, Sodium Level 143, Potassium Level 4.3, Chloride Level 110H, Carbon Dioxide Level 18L, Anion Gap 15, Blood Urea Nitrogen 19H, Creatinine 2.4H, Estimat Glomerular Filtration Rate 27.1, Glucose Level 92, Calcium Level 8.0L Height (Feet): 5 Height (Inches): 5.00 Weight (Pounds): 202 General Appearance: no apparent distress Cardiovascular: normal rate Respiratory/Chest: decreased breath sounds Abdomen: distended Objective no change Gurvinder Alexis MD May 12, 2019 11:08
[2019-05-12 12:00] VITALS: BP 105/61
[2019-05-12 16:00] VITALS: BP 117/71
--- NOTE | 2019-05-12 16:14 | General Progress Note ---
Assessment/Plan Assessment/Plan: Assessment - pancreatic pseudocyst - s/p EUS - Azotemia - Mild anemia Recommendations - advance diet - follow symptoms and exam Subjective Allergies: Coded Allergies: LATEX (Verified Allergy, Intermediate, 04/10/19) skin rash Uncoded Allergies: CLEAR TAPE (Allergy, Intermediate, 04/10/19) SKIN RASH Subjective Feels better wants to advance diet Objective Last 24 Hour Vital Signs Date Time Temp Pulse Resp B/P (MAP) Pulse Ox O2 Delivery O2 Flow Rate FiO2 05/12/19 16:00 98.5 74 20 117/71 (86) 96 74 05/12/19 12:00 98.1 63 18 105/61 (76) 99 63 05/12/19 09:00 Room Air 05/12/19 08:00 97.4 63 20 126/72 (90) 98 63 05/12/19 04:00 97.4 54 18 142/77 (98) 97 54 05/12/19 00:21 97.9 70 18 118/65 (82) 95 60 05/11/19 21:00 Room Air 05/11/19 21:00 97.9 70 17 125/72 (89) 96 70 Intake and Output 05/11/19 05/12/19 19:00 07:00 Intake Total 240 ml Balance 240 ml Intake Oral 240 ml # Voids 4 8 Laboratory Tests 05/12/19 04:45: White Blood Count 5.2, Red Blood Count 3.66L, Hemoglobin 11.4L, Hematocrit 34.5L , Mean Corpuscular Volume 94, Mean Corpuscular Hemoglobin 31.1H, Mean Corpuscular Hemoglobin Concent 33.0, Red Cell Distribution Width 12.8, Platelet Count 114L, Mean Platelet Volume 6.5, Neutrophils (%) (Auto) 69.3, Lymphocytes ( %) (Auto) 13.7L, Monocytes (%) (Auto) 10.7H, Eosinophils (%) (Auto) 4.7H, Basophils (%) (Auto) 1.5, Sodium Level 143, Potassium Level 4.3, Chloride Level 110H, Carbon Dioxide Level 18L, Anion Gap 15, Blood Urea Nitrogen 19H, Creatinine 2.4H, Estimat Glomerular Filtration Rate 27.1, Glucose Level 92, Calcium Level 8.0L Height (Feet): 5 Height (Inches): 5.00 Weight (Pounds): 202 Objective WDWN NCAT supple CTA RR abd soft ND NT no edema non focal Itzel Rojo MD May 12, 2019 16:14
--- NOTE | 2019-05-12 17:15 | Internal Med Progress Note ---
Subjective Date of Service: May 12, 2019 Physician Name MichelleMark Attending Physician Mina Solorzano MD Current Medications Medications (Trade) Dose Ordered Sig/Herminio Route PRN Reason Start Time Stop Time Status Last Admin Dose Admin Acetaminophen (Tylenol) 650 mg Q4H PRN ORAL Mild Pain/Temp > 100.5 05/08/19 15:30 06/07/19 15:29 05/09/19 18:10 Dextrose (Dextrose 50%) 25 ml Q30M PRN IV Hypoglycemia 05/08/19 18:30 06/07/19 18:29 Dextrose (Dextrose 50%) 50 ml Q30M PRN IV Hypoglycemia 05/08/19 18:30 06/07/19 18:29 Dextrose/Sodium Chloride 1,000 ml @ 100 mls/hr Q10H IV 05/08/19 15:30 06/07/19 15:29 05/12/19 10:40 Diphenhydramine HCl (Benadryl) 25 mg Q6H PRN ORAL Itching/Pruritis 05/08/19 18:30 06/07/19 18:29 Finasteride (Proscar) 5 mg DAILY ORAL 05/09/19 09:00 06/08/19 08:59 05/12/19 08:19 Heparin Sodium (Porcine) (Heparin 5000 units/ml) 5,000 units EVERY 12 HOURS SUBQ 05/09/19 09:00 06/08/19 08:59 05/09/19 21:12 Lorazepam (Ativan 2mg/ml 1ml) 1 mg Q4H PRN IV agitation 05/08/19 18:30 05/15/19 18:29 Metoclopramide HCl (Reglan) 10 mg Q6H PRN IVP severe nausea 05/08/19 18:30 06/07/19 18:29 05/08/19 23:08 Morphine Sulfate (Morphine Sulfate) 2 mg Q4H PRN IVP severe Pain (Pain Scale 7-10) 05/08/19 18:30 05/15/19 18:29 Nitroglycerin (Ntg) 0.4 mg Q5M X 3 DOSES PRN SL Prn Chest Pain 05/08/19 18:30 06/07/19 18:29 Ondansetron HCl (Zofran) 4 mg Q4H PRN IVP Nausea & Vomiting 05/08/19 23:00 06/07/19 22:59 Pantoprazole (Protonix) 40 mg BID ORAL 05/09/19 18:00 06/08/19 08:59 05/12/19 17:09 Piperacillin Sod/ Tazobactam Sod 3.375 gm/Sodium Chloride 110 ml @ 27.5 mls/hr EVERY 12 HOURS IVPB 05/10/19 21:00 05/13/19 16:59 05/12/19 08:19 Tamsulosin HCl (Flomax) 0.4 mg BID ORAL 05/10/19 11:00 06/09/19 10:59 05/12/19 17:09 Temazepam (Restoril) 15 mg HSPRN PRN ORAL Insomnia 05/08/19 18:30 05/15/19 18:29 Allergies: Coded Allergies: LATEX (Verified Allergy, Intermediate, 04/10/19) skin rash Uncoded Allergies: CLEAR TAPE (Allergy, Intermediate, 04/10/19) SKIN RASH ROS Limited/Unobtainable: No Constitutional: Reports: no symptoms HEENT: Reports: no symptoms Cardiovascular: Reports: no symptoms Respiratory: Reports: no symptoms Gastrointestinal/Abdominal: Reports: no symptoms Genitourinary: Reports: no symptoms Neurologic/Psychiatric: Reports: no symptoms Subjective 68 YO M admitted with abdominal pain. Now pancreatic cyst. Cover for Int Med- DR Solorzano. S/P failed endoscopic ultrasound 05/10/19 Objective Last Vital Signs Date Time Temp Pulse Resp B/P (MAP) Pulse Ox O2 Delivery O2 Flow Rate FiO2 05/12/19 16:00 98.5 74 20 117/71 (86) 96 74 05/12/19 09:00 Room Air 05/10/19 12:35 3 Laboratory Tests Test 05/12/19 04:45 White Blood Count 5.2 K/UL (4.8-10.8) Red Blood Count 3.66 M/UL (4.70-6.10) L Hemoglobin 11.4 G/DL (14.2-18.0) L Hematocrit 34.5 % (42.0-52.0) L Mean Corpuscular Volume 94 FL (80-99) Mean Corpuscular Hemoglobin 31.1 PG (27.0-31.0) H Mean Corpuscular Hemoglobin Concent 33.0 G/DL (32.0-36.0) Red Cell Distribution Width 12.8 % (11.6-14.8) Platelet Count 114 K/UL (150-450) L Mean Platelet Volume 6.5 FL (6.5-10.1) Neutrophils (%) (Auto) 69.3 % (45.0-75.0) Lymphocytes (%) (Auto) 13.7 % (20.0-45.0) L Monocytes (%) (Auto) 10.7 % (1.0-10.0) H Eosinophils (%) (Auto) 4.7 % (0.0-3.0) H Basophils (%) (Auto) 1.5 % (0.0-2.0) Sodium Level 143 MMOL/L (136-145) Potassium Level 4.3 MMOL/L (3.5-5.1) Chloride Level 110 MMOL/L (98-107) H Carbon Dioxide Level 18 MMOL/L (21-32) L Anion Gap 15 mmol/L (5-15) Blood Urea Nitrogen 19 mg/dL (7-18) H Creatinine 2.4 MG/DL (0.55-1.30) H Estimat Glomerular Filtration Rate 27.1 mL/min (>60) Glucose Level 92 MG/DL (74-106) Calcium Level 8.0 MG/DL (8.5-10.1) L Intake and Output 05/11/19 05/12/19 19:00 07:00 Intake Total 240 ml Balance 240 ml Intake Oral 240 ml # Voids 4 8 Objective PHYSICAL EXAMINATION: GENERAL: The patient is a well-developed, well-nourished white male, in no apparent distress. HEENT: Eyes, pupils are equal and responsive to light and accommodation. Extraocular movements are intact. NECK: Supple without lymphadenopathy. CHEST: Lungs are clear to auscultation bilaterally without wheezes or rales. CARDIOVASCULAR: Regular rhythm and rate. S1, S2 normal without murmurs, rubs, or gallops. ABDOMEN: Soft, distended with decreased bowel sounds. Tenderness to palpation left upper quadrant. No rebound or guarding. EXTREMITIES: Negative for clubbing, cyanosis, or edema. RECTAL/GENITAL: Not performed. NEUROLOGIC: Cranial nerves II through XII are grossly intact without focal deficits. Motor strength is 5/5 bilaterally. Deep tendon reflexes are 2+ plantar. Assessment/Plan Assessment/Plan ASSESSMENT: This is a 68-year-old white male. 1. Pancreatitis. 2. Pancreatic cyst. 3. Hypertension. 4. Benign prostatic hypertrophy. 5. History of right renal cancer. TREATMENT: 1. Pancreatitis and pancreatic cyst. A Gastroenterology consultation has been obtained with Dr. Nam Merchant. S/P failed endoscopic placement of drain of pancreatic cyst. We will follow recommendations of Gastroenterology. 2. Renal failure. The patient has a history of right nephrectomy secondary to renal cancer. A Nephrology consultation has been obtained with Dr. Alexis. 3. Hypertension. Continue losartan as above. 4. Benign prostatic hypertrophy. Continue Proscar as above. 5. Advance diet Mark Martinez MD May 12, 2019 17:15
--- NOTE | 2019-05-12 19:13 | NUR ---
HAND-OFF: Report given to POOJA Agosto.
[2019-05-12 20:00] VITALS: BP 125/70
--- NOTE | 2019-05-12 20:00 | NUR ---
NURSE NOTES: Received patient awake in bed, able to verbalize needs. IV access asymptomatic, patent, running IVF maintenance. Bed low and locked, non slip socks on. No s/s of acute distress, no c/o pain at this time.
[2019-05-13] VITALS: BP 132/72
[2019-05-13 04:00] VITALS: BP 127/71
[2019-05-13] MEDS: D5 1/2NS 1,000 ML IV SCH (05:36)
[2019-05-13 07:21] LABS: ALANINE AMINOTRANSFERASE 18 U/L (12-78); ALBUMIN 2.6 G/DL (3.4-5.0); ALBUMIN/GLOBULIN RATIO 0.7 (1.0-2.7); ALKALINE PHOSPHATASE 82 U/L (46-116); ANION GAP 7 mmol/L (5-15); ASPARTATE AMINO TRANSFERASE 12 U/L (15-37); BILIRUBIN,TOTAL 0.4 MG/DL (0.2-1.0); BLOOD UREA NITROGEN 17 mg/dL (7-18); CALCIUM 8.6 MG/DL (8.5-10.1); CARBON DIOXIDE 26 MMOL/L (21-32); CHLORIDE 110 MMOL/L (98-107); CREATININE 2.5 MG/DL (0.55-1.30); PHOSPHORUS 2.6 MG/DL (2.5-4.9); POTASSIUM 3.9 MMOL/L (3.5-5.1); SODIUM 143 MMOL/L (136-145)
--- NOTE | 2019-05-13 07:26 | NUR ---
HAND-OFF: Report given to POOJA Rodriguez.
--- NOTE | 2019-05-13 07:30 | NUR ---
NURSE NOTES: Patient is in bed awake and able to verbalize needs. Stable. Denies pain or SOB. Patient encouraged to use call light for assistance, verbalized understanding. Patient is in bed in locked and lowest position with IVF running as ordered. Will continue to monitor.
[2019-05-13 08:00] VITALS: BP 146/76
--- NOTE | 2019-05-13 08:37 | NUR ---
NURSE NOTES: GI MOHS SURGEON to follow up with Zosyn order.
[2019-05-13] MEDS: Heparin 5000 units/ml inj SUBQ SCH (09:00)
[2019-05-13] MEDS: Piperacillin/Tazobactam 3.375 GM in NS 110 ML IVPB SCH (09:17)
[2019-05-13] MEDS: Tamsulosin 0.4mg cap ORAL SCH (09:17)
[2019-05-13] MEDS ORDERED: Tums 500mg ORAL PRN (09:30)
--- NOTE | 2019-05-13 10:26 | Pulmonology Progress Note ---
Assessment/Plan Problems: (1) Pancreatitis (2) Renal insufficiency, mild (3) Anemia in CKD (chronic kidney disease) (4) Pseudocyst of pancreas (5) History of nephrectomy, right (6) Hypertension Assessment/Plan getting better advance diet bun/creatinine stable monitor BP dc planning when ok with GI dvt prophylaxis. Subjective ROS Limited/Unobtainable: No Constitutional: Reports: no symptoms HEENT: Repors: no symptoms Allergies: Coded Allergies: LATEX (Verified Allergy, Intermediate, 04/10/19) skin rash Uncoded Allergies: CLEAR TAPE (Allergy, Intermediate, 04/10/19) SKIN RASH Objective Last 24 Hour Vital Signs Date Time Temp Pulse Resp B/P (MAP) Pulse Ox O2 Delivery O2 Flow Rate FiO2 05/13/19 04:00 98.3 67 20 127/71 (89) 97 74 05/13/19 00:00 97.9 65 20 132/72 (92) 97 74 05/12/19 21:53 Room Air 05/12/19 20:00 97.9 65 20 125/70 (88) 97 74 05/12/19 16:00 98.5 74 20 117/71 (86) 96 74 05/12/19 12:00 98.1 63 18 105/61 (76) 99 63 Intake and Output 05/12/19 05/13/19 19:00 07:00 Intake Total 1910.0 ml 650 ml Balance 1910.0 ml 650 ml Intake Oral 400 ml 250 ml IV Total 1510.0 ml 400 ml # Voids 2 3 General Appearance: WD/WN HEENT: normocephalic Respiratory/Chest: chest wall non-tender, lungs clear Cardiovascular: normal peripheral pulses, normal rate Abdomen: normal bowel sounds, soft, non tender Genitourinary: normal external genitalia Neurologic/Psychiatric: endocrinology physician II-XII grossly normal Lymphatic: no neck adenopathy Laboratory Tests 05/13/19 04:50: Sodium Level 143, Potassium Level 3.9, Chloride Level 110H, Carbon Dioxide Level 26, Anion Gap 7, Blood Urea Nitrogen 17, Creatinine 2.5H, Estimat Glomerular Filtration Rate 25.9, Glucose Level 106, Calcium Level 8.6, Phosphorus Level 2.6, Magnesium Level 2.0, Total Bilirubin 0.4, Aspartate Amino Transf (AST/SGOT) 12L, Alanine Aminotransferase (ALT/SGPT) 18, Alkaline Phosphatase 82, Total Protein 6.3L, Albumin 2.6L, Globulin 3.7, Albumin/ Globulin Ratio 0.7L Current Medications Medications (Trade) Dose Ordered Sig/Herminio Route PRN Reason Start Time Stop Time Status Last Admin Dose Admin Acetaminophen (Tylenol) 650 mg Q4H PRN ORAL Mild Pain/Temp > 100.5 05/08/19 15:30 06/07/19 15:29 05/09/19 18:10 Calcium Carbonate (Tums) 1,000 mg Q4H PRN ORAL heartburn 05/13/19 09:30 06/12/19 09:29 05/13/19 09:40 Dextrose (Dextrose 50%) 25 ml Q30M PRN IV Hypoglycemia 05/08/19 18:30 06/07/19 18:29 Dextrose (Dextrose 50%) 50 ml Q30M PRN IV Hypoglycemia 05/08/19 18:30 06/07/19 18:29 Dextrose/Sodium Chloride 1,000 ml @ 100 mls/hr Q10H IV 05/08/19 15:30 06/07/19 15:29 05/13/19 05:36 Diphenhydramine HCl (Benadryl) 25 mg Q6H PRN ORAL Itching/Pruritis 05/08/19 18:30 06/07/19 18:29 Finasteride (Proscar) 5 mg DAILY ORAL 05/09/19 09:00 06/08/19 08:59 05/13/19 09:17 Heparin Sodium (Porcine) (Heparin 5000 units/ml) 5,000 units EVERY 12 HOURS SUBQ 05/09/19 09:00 06/08/19 08:59 05/09/19 21:12 Lorazepam (Ativan 2mg/ml 1ml) 1 mg Q4H PRN IV agitation 05/08/19 18:30 05/15/19 18:29 Metoclopramide HCl (Reglan) 10 mg Q6H PRN IVP severe nausea 05/08/19 18:30 06/07/19 18:29 05/08/19 23:08 Morphine Sulfate (Morphine Sulfate) 2 mg Q4H PRN IVP severe Pain (Pain Scale 7-10) 05/08/19 18:30 05/15/19 18:29 Nitroglycerin (Ntg) 0.4 mg Q5M X 3 DOSES PRN SL Prn Chest Pain 05/08/19 18:30 06/07/19 18:29 Ondansetron HCl (Zofran) 4 mg Q4H PRN IVP Nausea & Vomiting 05/08/19 23:00 06/07/19 22:59 Pantoprazole (Protonix) 40 mg BID ORAL 05/09/19 18:00 06/08/19 08:59 05/13/19 09:17 Piperacillin Sod/ Tazobactam Sod 3.375 gm/Sodium Chloride 110 ml @ 27.5 mls/hr EVERY 12 HOURS IVPB 05/10/19 21:00 05/13/19 16:59 05/13/19 09:17 Tamsulosin HCl (Flomax) 0.4 mg BID ORAL 05/10/19 11:00 06/09/19 10:59 05/13/19 09:17 Temazepam (Restoril) 15 mg HSPRN PRN ORAL Insomnia 05/08/19 18:30 05/15/19 18:29 Di Britton MD May 13, 2019 10:26
--- NOTE | 2019-05-13 10:56 | Nephrology Progress Note ---
Assessment/Plan Problem List: (1) Acute on chronic renal failure (2) Pancreatitis (3) History of nephrectomy, right Assessment: cancer (4) Hypertension (5) BPH (benign prostatic hyperplasia) Assessment acute on chronic renal failure- GI Pathology: pancreatic cyst and Pancreatitis HyperUrecemia HTN BPH Right renal cancer, status post nephrectomy. Plan add hydralazine for high BP Cr level at 2.5 continue Hydrate- avoid nephrotoxics monitor renal parameters and Uric acid hold ARBs and add flomax watch BP BIGG: 7 cm cyst in the splenic hilum possibly arising from the pancreatic tail. Consider evaluation with contrast-enhanced CT. Cholelithiasis. Left renal cyst Right nephrectomy Subjective ROS Limited/Unobtainable: No Constitutional: Reports: malaise Objective Objective Last 24 Hour Vital Signs Date Time Temp Pulse Resp B/P (MAP) Pulse Ox O2 Delivery O2 Flow Rate FiO2 05/13/19 09:00 Room Air 05/13/19 08:00 97.7 71 20 146/76 (99) 98 05/13/19 04:00 98.3 67 20 127/71 (89) 97 74 05/13/19 00:00 97.9 65 20 132/72 (92) 97 74 05/12/19 21:53 Room Air 05/12/19 20:00 97.9 65 20 125/70 (88) 97 74 05/12/19 16:00 98.5 74 20 117/71 (86) 96 74 05/12/19 12:00 98.1 63 18 105/61 (76) 99 63 Intake and Output 05/12/19 05/13/19 19:00 07:00 Intake Total 1910.0 ml 650 ml Balance 1910.0 ml 650 ml Intake Oral 400 ml 250 ml IV Total 1510.0 ml 400 ml # Voids 2 3 Current Medications Medications (Trade) Dose Ordered Sig/Herminio Route PRN Reason Start Time Stop Time Status Last Admin Dose Admin Acetaminophen (Tylenol) 650 mg Q4H PRN ORAL Mild Pain/Temp > 100.5 05/08/19 15:30 06/07/19 15:29 05/09/19 18:10 Calcium Carbonate (Tums) 1,000 mg Q4H PRN ORAL heartburn 05/13/19 09:30 06/12/19 09:29 05/13/19 09:40 Dextrose (Dextrose 50%) 25 ml Q30M PRN IV Hypoglycemia 05/08/19 18:30 06/07/19 18:29 Dextrose (Dextrose 50%) 50 ml Q30M PRN IV Hypoglycemia 05/08/19 18:30 06/07/19 18:29 Dextrose/Sodium Chloride 1,000 ml @ 40 mls/hr Q24H IV 05/13/19 11:00 06/07/19 10:59 05/13/19 11:15 Diphenhydramine HCl (Benadryl) 25 mg Q6H PRN ORAL Itching/Pruritis 05/08/19 18:30 06/07/19 18:29 Finasteride (Proscar) 5 mg DAILY ORAL 05/09/19 09:00 06/08/19 08:59 05/13/19 09:17 Heparin Sodium (Porcine) (Heparin 5000 units/ml) 5,000 units EVERY 12 HOURS SUBQ 05/09/19 09:00 06/08/19 08:59 05/09/19 21:12 Lorazepam (Ativan 2mg/ml 1ml) 1 mg Q4H PRN IV agitation 05/08/19 18:30 05/15/19 18:29 Metoclopramide HCl (Reglan) 10 mg Q6H PRN IVP severe nausea 05/08/19 18:30 06/07/19 18:29 05/08/19 23:08 Morphine Sulfate (Morphine Sulfate) 2 mg Q4H PRN IVP severe Pain (Pain Scale 7-10) 05/08/19 18:30 05/15/19 18:29 Nitroglycerin (Ntg) 0.4 mg Q5M X 3 DOSES PRN SL Prn Chest Pain 05/08/19 18:30 06/07/19 18:29 Ondansetron HCl (Zofran) 4 mg Q4H PRN IVP Nausea & Vomiting 05/08/19 23:00 06/07/19 22:59 Pantoprazole (Protonix) 40 mg BID ORAL 05/09/19 18:00 06/08/19 08:59 05/13/19 09:17 Piperacillin Sod/ Tazobactam Sod 3.375 gm/Sodium Chloride 110 ml @ 27.5 mls/hr EVERY 12 HOURS IVPB 05/10/19 21:00 05/13/19 16:59 05/13/19 09:17 Tamsulosin HCl (Flomax) 0.4 mg BID ORAL 05/10/19 11:00 06/09/19 10:59 05/13/19 09:17 Temazepam (Restoril) 15 mg HSPRN PRN ORAL Insomnia 05/08/19 18:30 05/15/19 18:29 Laboratory Tests 05/13/19 04:50: Sodium Level 143, Potassium Level 3.9, Chloride Level 110H, Carbon Dioxide Level 26, Anion Gap 7, Blood Urea Nitrogen 17, Creatinine 2.5H, Estimat Glomerular Filtration Rate 25.9, Glucose Level 106, Calcium Level 8.6, Phosphorus Level 2.6, Magnesium Level 2.0, Total Bilirubin 0.4, Aspartate Amino Transf (AST/SGOT) 12L, Alanine Aminotransferase (ALT/SGPT) 18, Alkaline Phosphatase 82, Total Protein 6.3L, Albumin 2.6L, Globulin 3.7, Albumin/ Globulin Ratio 0.7L Height (Feet): 5 Height (Inches): 5.00 Weight (Pounds): 202 General Appearance: no apparent distress Cardiovascular: normal rate Respiratory/Chest: lungs clear Abdomen: soft, distended Objective no change Gurvinder Alexis MD May 13, 2019 10:56
[2019-05-13] MEDS ORDERED: D5 1/2NS 1,000 ML IV SCH (11:00)
[2019-05-13 12:00] VITALS: BP 155/84
--- NOTE | 2019-05-13 12:25 | GI Progress Note ---
Assessment/Plan Problems: (1) Anemia in CKD (chronic kidney disease) ICD Codes: N18.9 - Chronic kidney disease, unspecified; D63.1 - Anemia in chronic kidney disease SNOMED: 584702166 (2) Pancreatitis ICD Codes: K85.9 - Acute pancreatitis, unspecified SNOMED: 55096562 (3) History of nephrectomy, right ICD Codes: Z90.5 - Acquired absence of kidney SNOMED: 53662148009489 (4) Pseudocyst of pancreas ICD Codes: K86.3 - Pseudocyst of pancreas SNOMED: 256426486 Status: stable Status Narrative Discussed with Dr. Merchant. Assessment/Plan Assessment - pancreatic pseudocyst - s/p EUS - Azotemia - Mild anemia Recommendations okay for DC per GI standpoint needs outpatient follow up, plan to re-schedule EUS Augmentin rx called in to patient pharmacy The patient was seen and examined at bedside and all new and available data was reviewed in the patients chart. I agree with the above findings, impression and plan. (Patient seen earlier today. Signature stamp does not reflect patient encounter time.). - Nam Merchant MD Subjective Gastrointestinal/Abdominal: Reports: no symptoms Subjective N/V resolved Objective Last 24 Hour Vital Signs Date Time Temp Pulse Resp B/P (MAP) Pulse Ox O2 Delivery O2 Flow Rate FiO2 05/13/19 09:00 Room Air 05/13/19 08:00 97.7 71 20 146/76 (99) 98 05/13/19 04:00 98.3 67 20 127/71 (89) 97 74 05/13/19 00:00 97.9 65 20 132/72 (92) 97 74 05/12/19 21:53 Room Air 05/12/19 20:00 97.9 65 20 125/70 (88) 97 74 05/12/19 16:00 98.5 74 20 117/71 (86) 96 74 Intake and Output 05/12/19 05/13/19 18:59 06:59 Intake Total 1910.0 ml 650 ml Balance 1910.0 ml 650 ml Intake Oral 400 ml 250 ml IV Total 1510.0 ml 400 ml # Voids 2 3 Laboratory Tests Test 05/13/19 04:50 Sodium Level 143 MMOL/L (136-145) Potassium Level 3.9 MMOL/L (3.5-5.1) Chloride Level 110 MMOL/L (98-107) H Carbon Dioxide Level 26 MMOL/L (21-32) Anion Gap 7 mmol/L (5-15) Blood Urea Nitrogen 17 mg/dL (7-18) Creatinine 2.5 MG/DL (0.55-1.30) H Estimat Glomerular Filtration Rate 25.9 mL/min (>60) Glucose Level 106 MG/DL (74-106) Calcium Level 8.6 MG/DL (8.5-10.1) Phosphorus Level 2.6 MG/DL (2.5-4.9) Magnesium Level 2.0 MG/DL (1.8-2.4) Total Bilirubin 0.4 MG/DL (0.2-1.0) Aspartate Amino Transf (AST/SGOT) 12 U/L (15-37) L Alanine Aminotransferase (ALT/SGPT) 18 U/L (12-78) Alkaline Phosphatase 82 U/L (46-116) Total Protein 6.3 G/DL (6.4-8.2) L Albumin 2.6 G/DL (3.4-5.0) L Globulin 3.7 g/dL Albumin/Globulin Ratio 0.7 (1.0-2.7) L Height (Feet): 5 Height (Inches): 5.00 Weight (Pounds): 202 General Appearance: WD/WN, no apparent distress, alert Cardiovascular: normal rate Respiratory/Chest: normal breath sounds, no respiratory distress Abdominal Exam: normal bowel sounds, non tender, soft Extremities: normal range of motion, non-tender Daniel Lewis NP May 13, 2019 12:25
[2019-05-13] MEDS ORDERED: HYDRALAZINE HCL25 M1 ORAL (12:30)
[2019-05-13 13:37] VITALS: BP 155/82
[2019-05-13] MEDS ORDERED: HydrALAZINE 25mg tab ORAL SCH (14:00)
[2019-05-13] MEDS ORDERED: Ondansetron ODT 8mg tab ORAL SCH (14:30)
--- NOTE | 2019-05-13 14:41 | NUR ---
NURSE NOTES: Patient discharged home as ordered. Stable. Denies pain or N/V. Patient was given thorough discharge instructions, verbalized understanding. Patient's medications called into [facility] pharmacy by GI INSIDE TESTER and Dr. Alexis. Patient verbalized that he will chart picker the medication at the pharmacy as soon as he discharges. Patient read aloud discharge instructions with RN and verbalized understanding that he will follow up with Dr. Merchant within 1 week. Patient has contact information for Dr. Merchant and Dr. Alexis. Patient understands that he will call MD if he has any questions. Patient has all belongings. Patient's home meds returned back to patient upon discharge. Skin is clean, dry, and intact. No IV access. Patient changed into own clothes and was assisted downstairs with friend and SHALE PLANER OPERATOR HELPER without incident.
--- NOTE | 2019-05-13 15:41 | Internal Med Progress Note ---
Subjective Physician Name Mina Solorzano Attending Physician Mina Solorzano MD Allergies: Coded Allergies: LATEX (Verified Allergy, Intermediate, 04/10/19) skin rash Uncoded Allergies: CLEAR TAPE (Allergy, Intermediate, 04/10/19) SKIN RASH Subjective Awake, alert, responsive, Denies CP or abdominal pain, no nausea or vomiting. Objective Last Vital Signs Date Time Temp Pulse Resp B/P (MAP) Pulse Ox O2 Delivery O2 Flow Rate FiO2 05/13/19 13:37 155/82 05/13/19 12:00 98.2 68 18 95 05/13/19 09:00 Room Air 05/10/19 12:35 3 Laboratory Tests Test 05/13/19 04:50 Sodium Level 143 MMOL/L (136-145) Potassium Level 3.9 MMOL/L (3.5-5.1) Chloride Level 110 MMOL/L (98-107) H Carbon Dioxide Level 26 MMOL/L (21-32) Anion Gap 7 mmol/L (5-15) Blood Urea Nitrogen 17 mg/dL (7-18) Creatinine 2.5 MG/DL (0.55-1.30) H Estimat Glomerular Filtration Rate 25.9 mL/min (>60) Glucose Level 106 MG/DL (74-106) Calcium Level 8.6 MG/DL (8.5-10.1) Phosphorus Level 2.6 MG/DL (2.5-4.9) Magnesium Level 2.0 MG/DL (1.8-2.4) Total Bilirubin 0.4 MG/DL (0.2-1.0) Aspartate Amino Transf (AST/SGOT) 12 U/L (15-37) L Alanine Aminotransferase (ALT/SGPT) 18 U/L (12-78) Alkaline Phosphatase 82 U/L (46-116) Total Protein 6.3 G/DL (6.4-8.2) L Albumin 2.6 G/DL (3.4-5.0) L Globulin 3.7 g/dL Albumin/Globulin Ratio 0.7 (1.0-2.7) L Intake and Output 05/12/19 05/13/19 18:59 06:59 Intake Total 1910.0 ml 650 ml Balance 1910.0 ml 650 ml Intake Oral 400 ml 250 ml IV Total 1510.0 ml 400 ml # Voids 2 3 Objective General: No acute distress, awake and alert HEENT: NCAT, sclera anicteric, PERRL, EOMI. Neck: Supple, no significant jugular venous distention, Lungs: Good inspiratory effort, clear to auscultation bilaterally, no Wheeze or Rales. Heart: Regular rate and rhythm, normal S1/S2, no murmur. Abdomen: soft, not tender, nondistended. Normoactive bowel sounds, obesity. / Rectal: Refused and deferred. Extremities: No Cyanosis , clubbing or edema. Neuro: A&O x 3, Able to move all extremities Skin: warm, no rashes or lesions Psych: Normal mood and affect Assessment/Plan Assessment/Plan Acute on chronic renal failure- pancreatic pseudocyst and Pancreatitis Hyperuricemia HTN BPH Right renal cancer, status post nephrectomy. Obesity, Plan: IV hydration Follow-up with the GI recommendation DVT prophylaxis with SCD CODE STATUS is full code DC Home today F/U with my office in 1 week Mina Solorzano MD May 13, 2019 15:41
--- NOTE | 2019-05-14 09:23 | Discharge Summary ---
Discharge Summary Discharge Summary _ DATE OF ADMISSION: 05/08/2019 DATE OF DISCHARGE: 05/13/2019 DISCHARGED BY: Dr. Solorzano REASON FOR ADMISSION: 68 years old male with past medical history of pancreatitis and pancreatic pseudocyst, status post drainage about 3 weeks ago with biopsy reported as benign, hypertension, right nephrectomy secondary to renal carcinoma, acute renal failure in the past, BPH, was sent from the GI office for evaluation due to complaints of bilateral lower quadrant abdominal pain with radiation to left upper quadrant. Patient started to have intractable nausea and vomiting. Patient was sent from the GI office to [facility] for evaluation and possible another drainage of pseudocyst. Patient subsequently admitted for pancreatic cyst , abdominal pain , nausea and vomiting. CONSULTANTS: hospitalist Dr. Britton GI specialist Dr. Merchant paper cone machine operator Dr. Alexis HOSPITAL COURSE: Patient admitted to medical surgical floor. Abdominal ultrasound revealed a 7 cm cyst in the splenic hilum , possibly arising from pancreatic tail. Cholelithiasis. Likely left renal cyst, right nephrectomy GI specialist followed. Laboratory work-up revealed mild leukocytosis WBC 12.4 , stable hemoglobin and hematocrit. Lipase 299. Amylase 191. BUN 30, creatinine 2.6. Urinalysis revealed +3 protein, +1 glucose, no evidence of UTI. No urine eosinophils were seen. Patient started on empiric antibiotic. Patient subsequently undergone endoscopic ultrasound with fine-needle aspiration , which was unsuccessful due to bleeding on 05/10. GI prophylaxis prophylaxis provided. Patient started on clear liquid diet as tolerated . Pain management was addressed. Supportive care provided . Antiemetic provided as needed. Lipase and amylase followed. Ring Rolling Machine Operator followed. Renal parameters and electrolytes were closely monitored, electrolytes corrected as needed, and nephrotoxins were avoided. Creatinine slightly trended down from 2.8 down to 2.5. Angiotensin receptor blanca were on hold. Hydralazine was added for better blood pressure control. Blood pressure improved DVT prophylaxis provided . Proscar and Flomax continued. Hemoglobin and hematocrit were closely monitored with goal to keep hemoglobin above 7 . Prior to discharge hemoglobin 11.4, hematocrit 34.5. Pain was controlled. Patient was able to tolerate diet. GI specialist cleared patient for discharge . Patient will need outpatient follow-up and reschedule endoscopic ultrasound for drainage. Prescription was called to the pharmacy for antibiotics. FINAL DIAGNOSES: Pancreatic pseudocyst Pancreatitis Status post endoscopic ultrasound Acute on chronic renal failure Anemia of chronic kidney disease History of right nephrectomy due to right kidney cancer BPH Hypertension DISCHARGE MEDICATIONS: See Medication Reconciliation list. DISCHARGE INSTRUCTIONS: Patient was discharged home . Follow up with GI specialist to schedule for another EUS. I have been assigned to dictate discharge summary for this account. I was not involved in the patient's management. Maria Isabel Cueva NP May 14, 2019 09:22
[2019-05-14] MEDS ORDERED: AUGMENTIN 500-1 EACH ORAL (13:46)
[2019-05-14] MEDS ORDERED: HYDRALAZINE HCL25 M1 ORAL (13:46)
--- NOTE | 2019-05-17 10:03 | Coder Physician Query ---
Clarification is required for compliance, coding accuracy, and to reflect severity of illness for this patient. Dear Dr. Merchant Date:05/17/19 Indication for Procedure: pancreatic psudocyst A diagnosis of bleeding is documented Operative Findings/Diagnosis: unsuccessful drainge due to bleeding Operative Date: 05/10/19 Please specify mentioned diagnosis of bleeding is: [] Not a complication of the procedure [] An expected outcome of the procedure [] Intraoperative Complication of the procedure [] Postoperative Complication of the procedure [] Other please specify: Present on Admission: [] Yes [] No [] Clinically Undetermined Nam Merchant M.D. Date & Time Please also document in your Progress Notes and/or Discharge Summary and indicate if the condition was present on admission. BASHIR
== END 2019-05-13 14:50 | disposition home or self-care (01) | DRG 438 ==
LOC: 3E 15:05
PROC: 0F9G8ZZ Drainage of Pancreas, Via Natural or Artificial Opening Endoscopic (ICD-10-PCS; principal; 2019-05-08)
DX: K86.3 Pseudocyst of pancreas (principal); K85.90 Acute pancreatitis without necrosis or infection, unspecified; N17.9 Acute kidney failure, unspecified; K91.61 Intraoperative hemorrhage and hematoma of a digestive system organ or structure complicating a digestive system procedure; Y84.8 Other medical procedures as the cause of abnormal reaction of the patient, or of later complication, without mention of misadventure at the time of the procedure; I12.9 Hypertensive chronic kidney disease with stage 1 through stage 4 chronic kidney disease, or unspecified chronic kidney disease; N18.9 Chronic kidney disease, unspecified; N40.0 Benign prostatic hyperplasia without lower urinary tract symptoms; Z85.528 Personal history of other malignant neoplasm of kidney; Z90.5 Acquired absence of kidney; Z91.040 Latex allergy status; K80.20 Calculus of gallbladder without cholecystitis without obstruction; D63.1 Anemia in chronic kidney disease
CPT/HCPCS: 36415; 76700; 80048; 80053; 80061; 81001; 82043; 82150; 82550; 82962; 83036; 83690; 83735; 83880; 83935; 84100; 84300; 84443; 84550; 85025; 85610; 85651; 85730; 86140; 89050; 94003; 94150; J1815; J2250; J2405; J2765

== ENCOUNTER → 2019-05-14 | Outpatient (CLI) | payer MEDICARE, OTHER ==
[~2019-05-14] MED LIST changes: +AUGMENTIN 500-1 EACH ORAL; +HYDRALAZINE HCL25 M1 ORAL
--- NOTE | 2019-05-14 11:05 | General Progress Note ---
Assessment/Plan Problem List: (1) History of nephrectomy, right ICD Codes: Z90.5 - Acquired absence of kidney SNOMED: 95595422799186 (2) BPH (benign prostatic hyperplasia) ICD Codes: N40.0 - Benign prostatic hyperplasia without lower urinary tract symptoms SNOMED: 834739530 (3) Acute on chronic renal failure ICD Codes: N17.9 - Acute kidney failure, unspecified; N18.9 - Chronic kidney disease, unspecified SNOMED: 626636809 (4) Pseudocyst of pancreas ICD Codes: K86.3 - Pseudocyst of pancreas SNOMED: 713870995 (5) Anemia in CKD (chronic kidney disease) ICD Codes: N18.9 - Chronic kidney disease, unspecified; D63.1 - Anemia in chronic kidney disease SNOMED: 351632367 (6) Hypertension ICD Codes: I10 - Essential (primary) hypertension SNOMED: 70967843 Assessment/Plan: s/p failed EUS guided drainage feeling very sick will admit to [facility] Subjective ROS Limited/Unobtainable: Yes Allergies: Coded Allergies: LATEX (Verified Allergy, Intermediate, 04/10/19) skin rash Uncoded Allergies: CLEAR TAPE (Allergy, Intermediate, 04/10/19) SKIN RASH Objective General Appearance: alert EENT: normal ENT inspection Neck: supple Cardiovascular: tachycardia Respiratory/Chest: decreased breath sounds Abdomen: normal bowel sounds, non tender, soft Extremities: non-tender Nam Merchant MD May 14, 2019 11:05
[2019-05-14 13:47] VITALS: BP 148/98
--- NOTE | 2019-05-15 03:30 | Procedure Note ---
DATE OF PROCEDURE: 05/14/2019 SURGEON: Nam Merchant M.D. PROCEDURE: Attempted pancreatic pseudocyst drainage. ANESTHESIA: Per Dr. Peter. INSTRUMENT: Olympus adult flexible EUS scope and ERCP scope. INDICATION: Pancreatic pseudocyst. REASON FOR PROCEDURE: The procedure, risks, benefits, and possible consequences, including hemorrhage, aspiration, perforation and infection, and alternative treatments, were explained to the patient/legal guardian by Dr. Nam Merchant and the patient/legal guardian understood and accepted these risks. DESCRIPTION OF PROCEDURE: The patient was brought to the GI room. The patient was intubated for this procedure. We placed the EUS linear scope through, we found an angle should penetrate into the pancreatic pseudocyst. We tattooed this area for changing the scope to the ERCP scope in order to be able to get access. As soon as so we changed the scope to the ERCP, we used a needle knife, tried to poke through to get through this cyst there was evidence of arterial bleed at the site and . We did not record any hemostasis procedure. We actually after few minutes of the washing stopped given we did not have EUS therapeutic scope, we decided that we are going to hold off on doing attempted to drain the cyst at this time given this complication. The patient to be returned back to his room. We will start him on IV antibiotics, monitor his laboratory, start diet when he is more stable. The patient most probably needs to be referred to [facility] or tertiary center for drainage of the cyst. I want to thank Dr. Mina Solorzano for this kind referral. Nam Merchant M.D. DR: BRITANY JOB#: [id number] CC: Mina Solorzano M.D.; Fax#: [phone]
== END | disposition home or self-care (01) ==
LOC: PAN 10:32
DX: K86.3 Pseudocyst of pancreas (principal); I12.9 Hypertensive chronic kidney disease with stage 1 through stage 4 chronic kidney disease, or unspecified chronic kidney disease; N18.9 Chronic kidney disease, unspecified; Z90.5 Acquired absence of kidney; N40.0 Benign prostatic hyperplasia without lower urinary tract symptoms; N17.9 Acute kidney failure, unspecified; D63.1 Anemia in chronic kidney disease; Z91.040 Latex allergy status

== ENCOUNTER 2019-12-17 09:13 | Outpatient (CLI) | payer MEDICARE, OTHER ==
--- NOTE | 2019-12-17 09:49 | General Progress Note ---
Assessment/Plan Assessment/Plan: Assessment/Plan Problem List: (1) History of nephrectomy, right ICD Codes: Z90.5 - Acquired absence of kidney SNOMED: 75613926684222 (2) BPH (benign prostatic hyperplasia) ICD Codes: N40.0 - Benign prostatic hyperplasia without lower urinary tract symptoms SNOMED: 892636104 (3) Acute on chronic renal failure ICD Codes: N17.9 - Acute kidney failure, unspecified; N18.9 - Chronic kidney disease, unspecified SNOMED: 876007286 (4) Pseudocyst of pancreas ICD Codes: K86.3 - Pseudocyst of pancreas SNOMED: 700854026 (5) Anemia in CKD (chronic kidney disease) ICD Codes: N18.9 - Chronic kidney disease, unspecified; D63.1 - Anemia in chronic kidney disease SNOMED: 275565359 (6) Hypertension ICD Codes: I10 - Essential (primary) hypertension s/p cholecystectomy 05/2019 s/p panc cyst drainage and stent placement at [id number]/[address] EGD and stent removal if CT shows Cyst clearance and if cleared by cardiology Subjective ROS Limited/Unobtainable: Yes Allergies: Coded Allergies: LATEX (Verified Allergy, Intermediate, 04/10/19) skin rash Uncoded Allergies: CLEAR TAPE (Allergy, Intermediate, 04/10/19) SKIN RASH Objective General Appearance: alert EENT: normal ENT inspection Neck: supple Cardiovascular: normal rate Respiratory/Chest: lungs clear Abdomen: normal bowel sounds, non tender, soft Extremities: normal range of motion, non-tender Nam Merchant MD Dec 17, 2019 09:49
[2019-12-17 11:05] VITALS: BP 132/78
[2019-12-17] MEDS ORDERED: HYDRALAZINE HCL50 MG ORAL (11:05)
[2019-12-17] MEDS ORDERED: TRAMADOL HCL50 MG ORAL (11:05)
== END 2019-12-17 11:13 | disposition home or self-care (01) ==
LOC: PAN 09:13
DX: N40.0 Benign prostatic hyperplasia without lower urinary tract symptoms (principal); N17.9 Acute kidney failure, unspecified; I12.9 Hypertensive chronic kidney disease with stage 1 through stage 4 chronic kidney disease, or unspecified chronic kidney disease; N18.9 Chronic kidney disease, unspecified; K86.3 Pseudocyst of pancreas; D63.1 Anemia in chronic kidney disease; Z90.49 Acquired absence of other specified parts of digestive tract; Z91.040 Latex allergy status; Z90.5 Acquired absence of kidney
CPT/HCPCS: 99212

== ENCOUNTER 2020-01-21 10:49 | Outpatient (CLI) | payer MEDICARE, OTHER ==
[~2020-01-21 10:49] MED LIST changes: +HYDRALAZINE HCL50 MG ORAL
--- NOTE | 2020-01-27 14:56 | General Progress Note ---
Assessment/Plan Problem List: (1) History of nephrectomy, right ICD Codes: Z90.5 - Acquired absence of kidney SNOMED: 47313399916466 (2) BPH (benign prostatic hyperplasia) ICD Codes: N40.0 - Benign prostatic hyperplasia without lower urinary tract symptoms SNOMED: 453958954 (3) Pseudocyst of pancreas ICD Codes: K86.3 - Pseudocyst of pancreas SNOMED: 432885755 (4) Anemia in CKD (chronic kidney disease) ICD Codes: N18.9 - Chronic kidney disease, unspecified; D63.1 - Anemia in chronic kidney disease SNOMED: 896660191 (5) Hypertension ICD Codes: I10 - Essential (primary) hypertension SNOMED: 10014721 (6) Pancreatitis ICD Codes: K85.9 - Acute pancreatitis, unspecified SNOMED: 20935047 (7) Gastritis ICD Codes: K29.70 - Gastritis, unspecified, without bleeding SNOMED: 6046150 (8) Esophagitis ICD Codes: K20.9 - Esophagitis, unspecified SNOMED: 46531020 Assessment/Plan: mri reviewed needs EGD for removal of the stent and EUS for growing pancreatic lesion patient is going for cardiac stress test will call to schedule after above Subjective ROS Limited/Unobtainable: Yes Allergies: Coded Allergies: LATEX (Verified Allergy, Intermediate, 04/10/19) skin rash Uncoded Allergies: CLEAR TAPE (Allergy, Intermediate, 04/10/19) SKIN RASH Objective General Appearance: alert EENT: normal ENT inspection Neck: supple Cardiovascular: normal rate Respiratory/Chest: lungs clear Abdomen: normal bowel sounds, non tender, soft Extremities: non-tender Nam Merchant MD Jan 27, 2020 14:56
== END 2020-01-21 12:49 | disposition home or self-care (01) ==
LOC: PAN 10:49
DX: K29.70 Gastritis, unspecified, without bleeding (principal); K20.9 Esophagitis, unspecified; K85.90 Acute pancreatitis without necrosis or infection, unspecified; K86.3 Pseudocyst of pancreas; N40.0 Benign prostatic hyperplasia without lower urinary tract symptoms; Z90.5 Acquired absence of kidney; N18.9 Chronic kidney disease, unspecified; D63.1 Anemia in chronic kidney disease; I10 Essential (primary) hypertension; I12.9 Hypertensive chronic kidney disease with stage 1 through stage 4 chronic kidney disease, or unspecified chronic kidney disease; Z91.040 Latex allergy status
CPT/HCPCS: 99212

== ENCOUNTER 2020-03-02 12:35 | Outpatient (CLI) | payer MEDICARE, OTHER ==
[2020-03-02] MEDS ORDERED: BP MED (13:12)
[2020-03-02] MEDS ORDERED: CREON DR 36,001 EACH PO (13:12)
[2020-03-02] MEDS ORDERED: XANAX0.5 MG ORAL (13:12)
[2020-03-02] MEDS ORDERED: ANXIETY MED (13:12)
== END 2020-03-02 14:35 | disposition home or self-care (01) ==
DX: N40.0 Benign prostatic hyperplasia without lower urinary tract symptoms (principal); N17.9 Acute kidney failure, unspecified; N18.9 Chronic kidney disease, unspecified; K86.3 Pseudocyst of pancreas; D63.1 Anemia in chronic kidney disease; I10 Essential (primary) hypertension; Z90.5 Acquired absence of kidney; Z90.49 Acquired absence of other specified parts of digestive tract; Z91.040 Latex allergy status

== ENCOUNTER 2020-03-27 07:59 | Day surgery (SDC) | payer MEDICARE, OTHER ==
[2020-03-27] VITALS (7 sets, daily range): BP systolic 93–120; BP diastolic 50–74
[~2020-03-27] VITALS: Ht 180.3 cm; Wt 102.1 kg
[~2020-03-27 07:59] MED LIST changes: +ANXIETY MED; +BP MED; +CREON DR 36,001 EACH PO; +XANAX0.5 MG ORAL
[2020-03-27] MEDS ORDERED: LR 1000ml 1,000 ML IV SCH (08:00)
--- NOTE | 2020-03-27 09:38 | Pre-Procedure Note/Attestation ---
Pre-Procedure Note/Attestation Complete Prior to Procedure Planned Procedure: not applicable Procedure Narrative: egd/eus Indications for Procedure Pre-Operative Diagnosis: pancreatitis Attestation I attest that I discussed the nature of the procedure; its benefits; risks and complications; and alternatives (and the risks and benefits of such alternatives ), prior to the procedure, with the patient (or the patient's legal customer engagement representative). I attest that, if there was a reasonable possibility of needing a blood transfusion, the patient (or the patient's legal customer engagement representative) was given the [facility] standardized written summary, pursuant to the Cedric [place] Blood Safety Act ([place] Health and Safety Code # 1645, as amended). I attest that I re-evaluated the patient just prior to the surgery and that there has been no change in the patient's H&P, except as documented below: Nam Merchant MD Mar 27, 2020 09:38
--- NOTE | 2020-03-27 09:38 | Short Stay Surgery H&P ---
History of Present Illness History of Present Illness Chief Complaint retained panc pseudocyst stent HPI Saúl Jasson Gutierrez is a 69 year old male who was admitted on for Gerd,Abdominal Pain Patient History Allergies: Coded Allergies: ADHESIVE TAPE (Verified Allergy, Intermediate, rash; blister, 03/27/20) Uncoded Allergies: CLEAR TAPE (Allergy, Intermediate, 04/10/19) SKIN RASH Medication History Scheduled Alprazolam* (Xanax*), 0.5 MG ORAL PRN, (Reported) Finasteride* (Proscar*), 5 MG ORAL DAILY, (Reported) Pantoprazole* (Pantoprazole*), 40 MG ORAL DAILY, (Reported) Scheduled PRN Tramadol Hcl* (Ultram*), 50 MG ORAL Q6H PRN for For Pain, (Reported) Miscellaneous Medications [Bp Med ], (Reported) Discontinued Medications Lipase/Protease/Amylase (Creon Dr 36,000 Units Capsule), 1 EACH PO, (Reported) Discontinued Reason: MD discontinued med Review of Systems Cardiovascular: Reports: no symptoms Skeletal: Reports: no symptoms Gastrointestinal: Reports: no symptoms Genitourinary: Reports: no symptoms Neurologic: Reports: no symptoms Endocrine: Reports: no symptoms Physical Exam Vital Signs Last Vital Signs Date Time Temp Pulse Resp B/P (MAP) Pulse Ox O2 Delivery O2 Flow Rate FiO2 03/27/20 09:12 Room Air 03/27/20 08:52 97.5 72 18 117/68 95 Skin: normal HENT: normal Heart: normal Lungs: normal Abdomen: normal Extremities: normal Plan Plan of Care egd/eus Attestation Are the patient's medical conditions optimized for surgery? Attestation Response: yes Nam Merchant MD Mar 27, 2020 09:38
[2020-03-27] MEDS ORDERED: LR 1000ml ONE (10:00)
[2020-03-27] MEDS ORDERED: Lidocaine 1% MPF 10mg/ml 5ml ONE (10:00)
--- NOTE | 2020-03-27 10:39 | Immediate Post-Op Evaluation ---
Immediate Post-Op Evalulation Immediate Post-Op Evalulation Procedure: EUS Date of Evaluation: Mar 27, 2020 Time of Evaluation: 10:38 IV Fluids: 600 Blood Pressure Systolic: 98 Blood Pressure Diastolic: 50 Pulse Rate: 77 Respiratory Rate: 14 O2 Sat by Pulse Oximetry: 98 Temperature (Fahrenheit): 97.6 Nausea: No Vomiting: No Patient Status: awake, reacts, patent Hydration Status: adequate Drug: none Jolanta Chaudhry CRNA Mar 27, 2020 10:39
--- NOTE | 2020-03-27 10:41 | Anethesia Preoperative Eval ---
Anesthesia Pre-op PMH/ROS General Date of Evaluation: Mar 27, 2020 Time of Evaluation: 09:45 Anesthesiologist: cordell ASA Score: ASA 3 Mallampati Score Class I : Soft palate, uvula, fauces, pillars visible Class II: Soft palate, uvula, fauces visible Class III: Soft palate, base of uvula visible Class IV: Only hard plate visible Mallampati Classification: Class II Surgeon: Mayur Diagnosis: Pancreatitis Surgical Procedure: EUS Anesthesia History: none Family History: no anesthesia problems Allergies: Coded Allergies: ADHESIVE TAPE (Verified Allergy, Intermediate, rash; blister, 03/27/20) Uncoded Allergies: CLEAR TAPE (Allergy, Intermediate, 04/10/19) SKIN RASH Medications: see eMAR Patient NPO?: Yes NPO Date: Mar 27, 2020 NPO Time: 00:01 Past Medical History Cardiovascular: Reports: HTN; Denies: CAD, [place], valve dz, arrhythmia, other Pulmonary: Denies: asthma, COPD, JESSY, other Gastrointestinal/Genitourinary: Reports: CRI; Denies: GERD, ESRD, other Neurologic/Psychiatric: Reports: depression/anxiety; Denies: dementia, CVA, TIA, other Endocrine: Denies: DM, hypothyroidism, steroids, other Hematology/Immune: Denies: anemia, DVT, bleeding disorder, other Musculoskeletal/Integumentary: Denies: OA, RA, DJD, DDD, edema, other Other: other - BPH PSxH Narrative: multiple surgeries Anesthesia Pre-op Phys. Exam Physician Exam Last Vital Signs Date Time Temp Pulse Resp B/P (MAP) Pulse Ox O2 Delivery O2 Flow Rate FiO2 03/27/20 09:12 Room Air 03/27/20 08:52 97.5 72 18 117/68 95 Constitutional: NAD Neurologic: CN 2-12 intact Cardiovascular: RRR Respiratory: CTA Gastrointestinal: S/NT/ND Airway Exam Mallampati Classification 2 Mallampati Score: Class II Neck: thick TMD: 1fb ROM: full Dentures: no upper, no lower Anesthesia Pre-op A/P Studies Pre-op Studies: EKG - SR Risk Assessment & Plan Assessment: covid neg Plan: MAC Status Change Before Surgery: No Pre-Antibiotics Drug: none Jolanta Chaudhry CRNA Mar 27, 2020 10:41
[2020-03-27] MEDS ORDERED: fentaNYL 100 mcg/2 mL IV PRN (10:45)
[2020-03-27] MEDS ORDERED: LORazepam Inj 2mg/ml 1ml IV PRN (10:45)
--- NOTE | 2020-03-27 11:18 | 48 Hour Post Anesthesia Eval ---
Post Anesthesia Evaluation Procedure: EUS Date of Evaluation: Mar 27, 2020 Time of Evaluation: 11:18 Blood Pressure Systolic: 115 0: 70 Pulse Rate: 57 Respiratory Rate: 14 O2 Sat by Pulse Oximetry: 98 Airway: patent Nausea: No Vomiting: No Hydration Status: adequate Cardiopulmonary Status: stable Mental Status/LOC: patient returned to baseline Follow-up Care/Observations: na Post-Anesthesia Complications: none Follow-up care needed: N/A Jolanta Chaudhry CRNA Mar 27, 2020 11:18
--- NOTE | 2020-03-27 13:00 | Procedure Note ---
DATE OF PROCEDURE: 03/27/2020 SURGEON: Nam Merchant MD. PROCEDURE: Upper endoscopy, stent removal, endoscopic ultrasound. ANESTHESIA: Per ICE CREAM CHEF, Jolanta Tarriseth. INSTRUMENT: Olympus adult flexible upper endoscope and EUS scope. REASON FOR PROCEDURE: The procedure, risks, benefits, and possible consequences, including hemorrhage, aspiration, perforation and infection, and alternative treatments, were explained to the patient/legal guardian by Dr. Nam Merchant and the patient/legal guardian understood and accepted these risks. INDICATION: Pancreatic cyst. DESCRIPTION OF PROCEDURE: After informed consent was obtained and the patient was adequately sedated, Olympus upper endoscope was advanced from mouth into the second portion of the duodenum and retroflexion was performed in the stomach. The patient had irregular Z-line with questionable short-segment of Merchant's esophagus right at the GE junction. In the stomach, we saw two stents pigtailed in the upper body of the stomach. Duodenal bulb was a little bit hard to get into, maybe there was some scarred area from prior ulcerations. At this time, we used a snare and removed both pigtail stents from the stomach. Then, we introduced the EUS. Scanning at the GE junction, we did not see any obvious celiac axis lymphadenopathy. Pancreatic look mildly atrophic in the body and tail. No pancreatic duct dilatation. The cyst or the lesion, which was seen on the CT on the neck of the pancreas was not seen in this study. Then, the scope was advanced into the duodenal bulb and second portion of duodenum. Anatomy examination was altered. Gallbladder has been removed. Common bile duct measured roughly about 6 mm. The head of the pancreas looks like a chronic pancreatitis. At this time, the EUS scope was removed and procedure was terminated. SUMMARY OF FINDINGS: 1. Irregular Z-line, suspicious for Merchant's. 2. Two stents in the stomach from the cystogastrostomy was removed successfully without any complication. 3. Mildly narrowing of the duodenal bulb. 4. No obvious lesion seen in the neck of the pancreas as seen in the CAT scan. 5. Chronic pancreatitis, especially in the head of the pancreas. RECOMMENDATIONS: We will recommend the patient to have a repeat CT, if he is symptomatic, very quickly. If he is asymptomatic, we will recommend repeat CT in three months. Follow up on the lesion seen on the prior study. I want to thank Dr. Mina Solorzano for this kind referral. Nam Merchant M.D. DR: JOEY JOB#: [id number] CC: Mina Solorzano MD.; Fax#: [phone]
== END 2020-03-27 11:40 | disposition home or self-care (01) ==
LOC: GAS 07:59
DX: K86.2 Cyst of pancreas (principal); K86.1 Other chronic pancreatitis; Z91.040 Latex allergy status; I10 Essential (primary) hypertension; F32.9 Major depressive disorder, single episode, unspecified; F41.9 Anxiety disorder, unspecified
CPT/HCPCS: 43215; 43231; 94003; J2704; J7120; U0002; 94150

== ENCOUNTER → 2020-04-13 | Outpatient (CLI) | payer MEDICARE, OTHER ==
[2020-04-13 12:43] VITALS: BP 129/79
--- NOTE | 2020-04-13 13:05 | General Progress Note ---
Assessment/Plan Assessment/Plan: Assessment/Plan Problem List: (1) History of nephrectomy, right ICD Codes: Z90.5 - Acquired absence of kidney SNOMED: 83595968344373 (2) BPH (benign prostatic hyperplasia) ICD Codes: N40.0 - Benign prostatic hyperplasia without lower urinary tract symptoms SNOMED: 621171004 (3) Acute on chronic renal failure ICD Codes: N17.9 - Acute kidney failure, unspecified; N18.9 - Chronic kidney disease, unspecified SNOMED: 380646693 (4) Pseudocyst of pancreas ICD Codes: K86.3 - Pseudocyst of pancreas SNOMED: 596719627 (5) Anemia in CKD (chronic kidney disease) ICD Codes: N18.9 - Chronic kidney disease, unspecified; D63.1 - Anemia in chronic kidney disease SNOMED: 270809329 (6) Hypertension ICD Codes: I10 - Essential (primary) hypertension s/p cholecystectomy 05/2019 s/p panc cyst drainage and stent placement at /2019 s/p EGD and stent removal and EUS. plan CT in 3 months Subjective ROS Limited/Unobtainable: Yes Allergies: Coded Allergies: ADHESIVE TAPE (Verified Allergy, Intermediate, rash; blister, 03/27/20) Uncoded Allergies: CLEAR TAPE (Allergy, Intermediate, 04/10/19) SKIN RASH Objective Last 24 Hour Vital Signs Date Time Temp Pulse Resp B/P (MAP) Pulse Ox O2 Delivery O2 Flow Rate FiO2 04/13/20 12:43 98.3 76 16 129/79 (96) 93 General Appearance: alert EENT: normal ENT inspection Neck: supple Cardiovascular: normal rate Respiratory/Chest: decreased breath sounds Abdomen: normal bowel sounds, non tender, soft Extremities: non-tender Nam Merchant MD Apr 13, 2020 13:05
== END | disposition home or self-care (01) ==
LOC: PAN 12:13
DX: N40.0 Benign prostatic hyperplasia without lower urinary tract symptoms (principal); N17.9 Acute kidney failure, unspecified; K86.3 Pseudocyst of pancreas; N18.9 Chronic kidney disease, unspecified; Z90.5 Acquired absence of kidney; Z90.49 Acquired absence of other specified parts of digestive tract; Z91.040 Latex allergy status; D63.1 Anemia in chronic kidney disease; I12.9 Hypertensive chronic kidney disease with stage 1 through stage 4 chronic kidney disease, or unspecified chronic kidney disease

== ENCOUNTER → 2020-04-13 | Outpatient (CLI) | payer MEDICARE, OTHER ==
[2020-04-13 13:27] LABS: BASOPHILS % (AUTO) 1.4 % (0.0-2.0); EOSINOPHILS % (AUTO) 0.6 % (0.0-3.0); HEMATOCRIT 47.3 % (42.0-52.0); HEMOGLOBIN 15.8 G/DL (14.2-18.0); LYMPHOCYTES % (AUTO) 12.5 % (20.0-45.0); MEAN CORPUSCULAR VOLUME 94 FL (80-99); MONOCYTES % (AUTO) 8.8 % (1.0-10.0); NEUTROPHILS % (AUTO) 76.7 % (45.0-75.0); PLATELET COUNT 171 K/UL (150-450); RED BLOOD COUNT 5.04 M/UL (4.70-6.10); RED CELL DISTRIBUTION WIDTH 12.4 % (11.6-14.8)
[2020-04-13 13:50] LABS: ALANINE AMINOTRANSFERASE 31 U/L (12-78); ALBUMIN 3.4 G/DL (3.4-5.0); ALBUMIN/GLOBULIN RATIO 0.8 (1.0-2.7); ALKALINE PHOSPHATASE 106 U/L (46-116); ANION GAP 10 mmol/L (5-15); ASPARTATE AMINO TRANSFERASE 17 U/L (15-37); BILIRUBIN,TOTAL 0.4 MG/DL (0.2-1.0); BLOOD UREA NITROGEN 40 mg/dL (7-18); CALCIUM 9.2 MG/DL (8.5-10.1); CARBON DIOXIDE 27 MMOL/L (21-32); CHLORIDE 105 MMOL/L (98-107); CHOLESTEROL 143 MG/DL (< 200); CREATININE 2.9 MG/DL (0.55-1.30); HDL CHOLESTEROL 33 MG/DL (40-60); PHOSPHORUS 4.3 MG/DL (2.5-4.9); POTASSIUM 5.1 MMOL/L (3.5-5.1); SODIUM 142 MMOL/L (136-145); TRIGLYCERIDES 125 MG/DL (30-150)
== END | disposition home or self-care (01) ==
LOC: LAB 13:08
DX: I12.9 Hypertensive chronic kidney disease with stage 1 through stage 4 chronic kidney disease, or unspecified chronic kidney disease (principal); N18.9 Chronic kidney disease, unspecified; E78.00 Pure hypercholesterolemia, unspecified; K86.1 Other chronic pancreatitis
CPT/HCPCS: 36415; 80053; 80061; 83735; 84100; 84153; 84154; 84443; 85025

== ENCOUNTER 2020-05-04 13:29 | Outpatient (CLI) | payer MEDICARE, OTHER ==
--- NOTE | 2020-05-04 13:54 | General Progress Note ---
Assessment/Plan Assessment/Plan: Assessment/Plan Problem List: (1) History of nephrectomy, right ICD Codes: Z90.5 - Acquired absence of kidney SNOMED: 74749428377934 (2) BPH (benign prostatic hyperplasia) ICD Codes: N40.0 - Benign prostatic hyperplasia without lower urinary tract symptoms SNOMED: 240632525 (3) Acute on chronic renal failure ICD Codes: N17.9 - Acute kidney failure, unspecified; N18.9 - Chronic kidney disease, unspecified SNOMED: 432857305 (4) Pseudocyst of pancreas ICD Codes: K86.3 - Pseudocyst of pancreas SNOMED: 425243460 (5) Anemia in CKD (chronic kidney disease) ICD Codes: N18.9 - Chronic kidney disease, unspecified; D63.1 - Anemia in chronic kidney disease SNOMED: 436048246 (6) Hypertension ICD Codes: I10 - Essential (primary) hypertension s/p cholecystectomy 05/2019 s/p panc cyst drainage and stent placement at [id number] s/p EGD and stent removal and EUS. plan CT in 3 months last colonoscopy 12/2017>>> repeat colon in 2022 Subjective ROS Limited/Unobtainable: Yes Allergies: Coded Allergies: ADHESIVE TAPE (Verified Allergy, Intermediate, rash; blister, 03/27/20) Uncoded Allergies: CLEAR TAPE (Allergy, Intermediate, 04/10/19) SKIN RASH Objective General Appearance: alert EENT: normal ENT inspection Neck: supple Cardiovascular: normal rate Respiratory/Chest: decreased breath sounds Abdomen: normal bowel sounds, non tender, soft Extremities: non-tender Nam Merchant MD May 04, 2020 13:54
[2020-05-04 14:52] VITALS: BP 129/78
== END 2020-05-04 15:29 | disposition home or self-care (01) ==
LOC: PAN 13:29
DX: N40.0 Benign prostatic hyperplasia without lower urinary tract symptoms (principal); Z90.5 Acquired absence of kidney; N17.9 Acute kidney failure, unspecified; K86.3 Pseudocyst of pancreas; D63.1 Anemia in chronic kidney disease; I12.9 Hypertensive chronic kidney disease with stage 1 through stage 4 chronic kidney disease, or unspecified chronic kidney disease; N18.9 Chronic kidney disease, unspecified; Z90.49 Acquired absence of other specified parts of digestive tract; Z91.040 Latex allergy status
CPT/HCPCS: 99212

== ENCOUNTER 2020-06-22 14:18 | Outpatient (CLI) | payer MEDICARE, OTHER ==
[2020-06-22 14:57] VITALS: BP 125/75
--- NOTE | 2020-06-22 15:32 | General Progress Note ---
Subjective ROS Limited/Unobtainable: Yes Allergies: Coded Allergies: ADHESIVE TAPE (Verified Allergy, Intermediate, rash; blister, 03/27/20) Uncoded Allergies: CLEAR TAPE (Allergy, Intermediate, 04/10/19) SKIN RASH Objective Last 24 Hour Vital Signs Date Time Temp Pulse Resp B/P (MAP) Pulse Ox O2 Delivery O2 Flow Rate FiO2 06/22/20 14:57 98.3 72 18 125/75 92 General Appearance: alert EENT: normal ENT inspection Neck: supple Cardiovascular: normal rate Respiratory/Chest: decreased breath sounds Abdomen: normal bowel sounds, non tender, soft Extremities: non-tender Assessment/Plan Assessment/Plan: Assessment/Plan Problem List: (1) History of nephrectomy, right ICD Codes: Z90.5 - Acquired absence of kidney SNOMED: 76639093453302 (2) BPH (benign prostatic hyperplasia) ICD Codes: N40.0 - Benign prostatic hyperplasia without lower urinary tract symptoms SNOMED: 002189696 (3) Acute on chronic renal failure ICD Codes: N17.9 - Acute kidney failure, unspecified; N18.9 - Chronic kidney disease, unspecified SNOMED: 482518601 (4) Pseudocyst of pancreas ICD Codes: K86.3 - Pseudocyst of pancreas SNOMED: 129626019 (5) Anemia in CKD (chronic kidney disease) ICD Codes: N18.9 - Chronic kidney disease, unspecified; D63.1 - Anemia in chronic kidney disease SNOMED: 907812515 (6) Hypertension ICD Codes: I10 - Essential (primary) hypertension s/p cholecystectomy 05/2019 s/p panc cyst drainage and stent placement at [id number] s/p EGD and stent removal and EUS. last colonoscopy 12/2017>>> repeat colon in 2022 recent admission to [facility] CT >>> chronic pancreatitis pain suspicious for diverticulitis but improving Nam Merchant MD Jun 22, 2020 15:32
== END 2020-06-22 16:18 | disposition home or self-care (01) ==
LOC: PAN 14:18
DX: N40.0 Benign prostatic hyperplasia without lower urinary tract symptoms (principal); N17.9 Acute kidney failure, unspecified; K86.3 Pseudocyst of pancreas; Z90.5 Acquired absence of kidney; Z90.49 Acquired absence of other specified parts of digestive tract; K86.1 Other chronic pancreatitis; Z91.040 Latex allergy status; I12.9 Hypertensive chronic kidney disease with stage 1 through stage 4 chronic kidney disease, or unspecified chronic kidney disease; N18.9 Chronic kidney disease, unspecified; D63.1 Anemia in chronic kidney disease
CPT/HCPCS: 99212

== ENCOUNTER → 2020-06-23 | Outpatient (CLI) | payer MEDICARE, OTHER ==
--- NOTE | 2020-06-23 13:50 | Diagnostic Imaging Report ---
Indications: Sinus pain Technique: Spiral images obtained through the maxillofacial sinuses. No IV contrast utilized. Multiplanar reconstructions were generated.Total dose length product 393 mGycm. CTDIvol(s) 15 mGy. Dose reduction achieved using automated exposure control Comparison: none Findings: There is minimal mucosal thickening of the medial wall of the right maxillary sinus. There is minimal mucosal thickening of the floor of the left maxillary sinus. Sinuses are otherwise clear. No evidence of polyposis, air-fluid levels, or other significant abnormality. The nasal septum is midline. The maxillary ostia are patent bilaterally. There are degenerative changes of the cervical spine. Bones are otherwise unremarkable. The orbits are unremarkable. The visualized intracranial structures are unremarkable. Impression: Minimal bilateral maxillary sinus mucosal thickening. No significant sinus abnormality otherwise. Patent maxillary ostia Degenerative cervical spondylosis incidentally noted The CT scanner at [facility] is accredited by the [employer] and the scans are performed using protocols designed to limit radiation exposure to as low as reasonably achievable to attain images of sufficient resolution adequate for diagnostic evaluation.
== END | disposition home or self-care (01) ==
LOC: CAT 12:04
DX: R51.9 Headache, unspecified (principal); M47.812 Spondylosis without myelopathy or radiculopathy, cervical region
CPT/HCPCS: 70486

== ENCOUNTER → 2020-07-08 | Outpatient (CLI) | payer MEDICARE, OTHER ==
[2020-07-08 11:55] LABS: BASOPHILS % (AUTO) 0.8 % (0.0-2.0); EOSINOPHILS % (AUTO) 1.9 % (0.0-3.0); HEMATOCRIT 50.8 % (42.0-52.0); HEMOGLOBIN 15.8 G/DL (14.2-18.0); MEAN CORPUSCULAR VOLUME 103 FL (80-99); MONOCYTES % (AUTO) 8.3 % (1.0-10.0); NEUTROPHILS % (AUTO) 76.9 % (45.0-75.0); PLATELET COUNT 138 K/UL (150-450); RED BLOOD COUNT 4.95 M/UL (4.70-6.10); RED CELL DISTRIBUTION WIDTH 13.4 % (11.6-14.8); WHITE BLOOD COUNT 6.7 K/UL (4.8-10.8)
[2020-07-08 12:09] LABS: INR 0.9 (0.9-1.1)
[2020-07-08 12:16] LABS: ALBUMIN 3.3 G/DL (3.4-5.0); ALBUMIN/GLOBULIN RATIO 0.8 (1.0-2.7); BILIRUBIN,TOTAL 0.4 MG/DL (0.2-1.0); CALCIUM 8.6 MG/DL (8.5-10.1); CREATININE 2.9 MG/DL (0.55-1.30); PHOSPHORUS 3.8 MG/DL (2.5-4.9); POTASSIUM 5.4 MMOL/L (3.5-5.1)
== END | disposition home or self-care (01) ==
LOC: LAB 11:28
DX: Z01.818 Encounter for other preprocedural examination (principal); H26.9 Unspecified cataract
CPT/HCPCS: 36415; 80053; 83735; 84100; 85025; 85610; 85730

== ENCOUNTER 2020-09-03 14:47 | Outpatient (CLI) | payer MEDICARE, OTHER ==
[2020-09-03 15:23] LABS: BASOPHILS % (AUTO) 1.1 % (0.0-2.0); EOSINOPHILS % (AUTO) 1.1 % (0.0-3.0); HEMATOCRIT 44.6 % (42.0-52.0); LYMPHOCYTES % (AUTO) 13.5 % (20.0-45.0); MEAN CORPUSCULAR VOLUME 97 FL (80-99); MONOCYTES % (AUTO) 9.5 % (1.0-10.0); NEUTROPHILS % (AUTO) 74.7 % (45.0-75.0); PLATELET COUNT 192 K/UL (150-450); RED BLOOD COUNT 4.59 M/UL (4.70-6.10); RED CELL DISTRIBUTION WIDTH 12.9 % (11.6-14.8); WHITE BLOOD COUNT 7.7 K/UL (4.8-10.8)
[2020-09-03 15:47] LABS: ALBUMIN 3.4 G/DL (3.4-5.0); BILIRUBIN,TOTAL 0.5 MG/DL (0.2-1.0); CALCIUM 8.7 MG/DL (8.5-10.1); CREATININE 2.6 MG/DL (0.55-1.30)
== END 2020-09-03 16:47 | disposition home or self-care (01) ==
LOC: LAB 14:47
DX: R10.9 Unspecified abdominal pain (principal)
CPT/HCPCS: 36415; 80053; 82150; 83690; 85025; G0463; 99212

== ENCOUNTER 2020-09-15 10:31 | Outpatient (CLI) | payer MEDICARE, OTHER ==
[2020-09-15 10:47] VITALS: BP 138/78
--- NOTE | 2020-09-15 11:20 | General Progress Note ---
Subjective ROS Limited/Unobtainable: Yes Allergies: Coded Allergies: ADHESIVE TAPE (Verified Allergy, Intermediate, rash; blister, 03/27/20) Uncoded Allergies: CLEAR TAPE (Allergy, Intermediate, 04/10/19) SKIN RASH Objective Last 24 Hour Vital Signs Date Time Temp Pulse Resp B/P (MAP) Pulse Ox O2 Delivery O2 Flow Rate FiO2 09/15/20 10:47 98.1 70 16 138/78 96 General Appearance: no apparent distress EENT: normal ENT inspection Neck: supple Cardiovascular: normal rate Respiratory/Chest: decreased breath sounds Abdomen: normal bowel sounds, non tender, soft Extremities: non-tender Assessment/Plan Assessment/Plan: Assessment/Plan Problem List: (1) History of nephrectomy, right ICD Codes: Z90.5 - Acquired absence of kidney SNOMED: 52246990927327 (2) BPH (benign prostatic hyperplasia) ICD Codes: N40.0 - Benign prostatic hyperplasia without lower urinary tract symptoms SNOMED: 276904077 (3) Acute on chronic renal failure ICD Codes: N17.9 - Acute kidney failure, unspecified; N18.9 - Chronic kidney disease, unspecified SNOMED: 161572778 (4) Pseudocyst of pancreas ICD Codes: K86.3 - Pseudocyst of pancreas SNOMED: 127211793 (5) Anemia in CKD (chronic kidney disease) ICD Codes: N18.9 - Chronic kidney disease, unspecified; D63.1 - Anemia in chronic kidney disease SNOMED: 872004824 (6) Hypertension ICD Codes: I10 - Essential (primary) hypertension s/p cholecystectomy 05/2019 s/p panc cyst drainage and stent placement at [id number] s/p EGD and stent removal and EUS. last colonoscopy 12/2017>>> repeat colon in 2022 recent admission to [facility] CT >>> chronic pancreatitis another CT from [facility] reviewed Nam Merchant MD Sep 15, 2020 11:20
== END 2020-09-15 12:31 | disposition home or self-care (01) ==
LOC: PAN 10:31
DX: N40.0 Benign prostatic hyperplasia without lower urinary tract symptoms (principal); Z90.5 Acquired absence of kidney; K86.3 Pseudocyst of pancreas; I12.9 Hypertensive chronic kidney disease with stage 1 through stage 4 chronic kidney disease, or unspecified chronic kidney disease; N18.9 Chronic kidney disease, unspecified; N17.9 Acute kidney failure, unspecified; D63.1 Anemia in chronic kidney disease; Z04.9 Encounter for examination and observation for unspecified reason; K86.1 Other chronic pancreatitis
CPT/HCPCS: 99212